=== PATIENT | male | born 1960 | race Caucasian/White ===

== ENCOUNTER → 2017-04-27 | Outpatient (CLI) | payer OTHER ==
[~2017-04-27] MED LIST: CLN200 PO; PRED50TA PO
== END | disposition home or self-care (01) ==
LOC: C.CPL 09:59
PROVIDERS: ATTEND Orthopaedic Surgery
DX: S83.242D Other tear of medial meniscus, current injury, left knee, subsequent encounter (principal); X58.XXXD Exposure to other specified factors, subsequent encounter

== ENCOUNTER 2019-03-24 10:06 | Inpatient (IN) ==
--- NOTE | 2019-03-09 12:59 | PAT Medication Instructions ---
Medication Instructions Date of Service March 09, 2019 Home Medications tamsulosin 0.4 mg capsule 0.4 mg PO QPM lisinopril-hydrochlorothiazide 1 tab PO QPM Take evening before surgery tamsulosin 0.4 mg capsule 0.4 mg PO QPM lisinopril-hydrochlorothiazide 1 tab PO QPM NOTHING TO EAT OR DRINK AFTER MIDNIGHT Other Notes If you have any questions please call us at [phone] or [phone] or [phone] or [phone]
--- NOTE | 2019-03-09 13:10 | Anesthesiology Consultation ---
Date of Service March 09, 2019 Assessment & Plan (1) Encounter for pre-operative examination: PCP Clearance (Dr. Jordan) 03/02/19 = "Pt cleared for surgery with low likelihood of taylor-operative complications assuming we can get his BP down. Start Amlodipine and take in the AM. Return for BP check in a week with nurse. Getting further testing with anesthesia at the hospital. I am happy with his EKG from earlier this year." Pt returned for BP check on 03/11. BP 148/80. Addendum 03/16 = "Pt returned for BP recheck and SBP down to 148. Still not fully controlled but patient cleared for surgery." Chart Review Chart Review: Acceptable Risk for Surgery and Patient seen in Pre Admission Testing Teaching & Discussion Instructed NPO after midnight before surgery, except medications with 15 cc of water. Medication instructions provided according to the PAT guidelines. History Surgery Operation Date: 03/24/19 12:35 Proposed Procedures p Robotic Laparoscopic Assisted Radical Retropubic Prostatectomy, Possible Open, Possible Pelvic Lymph Node Dissection, Possible Suprapubic Tube Placement - Santhosh Alarcon MD Height/Weight Height: 6 ft 4 in Weight: 149.685 kg Allergies Allergy/AdvReac Type Severity Reaction Status Date / Time NSAIDS (Non-Steroidal Allergy Unknown SEE NOTES Verified 03/24/19 10:45 Anti-Inflamma BELOW Medications Home Medications Medication Instructions Recorded Confirmed Last Taken tamsulosin 0.4 mg capsule 0.4 mg PO QPM 01/18/19 03/24/19 03/22/19 20:30 lisinopril-hydrochlorothiazide 1 tab PO QPM 03/04/19 03/24/19 03/23/19 18:00 amlodipine 5 mg PO QAM 03/09/19 03/24/19 03/24/19 08:30 Active Medications Generic Name Dose Route Start Last Admin Trade Name Freq PRN Reason Stop Dose Admin Heparin Sodium (Porcine) 5,000 units 03/24/19 06:00 03/24/19 11:26 Heparin Sodium (Porcine) SC 03/24/19 15:00 Not Given PREOP RADHA Lactated Ringer's 1,000 mls @ 15 mls/hr 03/24/19 06:00 03/24/19 11:21 Lr IV 03/25/19 05:59 15 mls/hr .Q24H RADHA Administration Past Medical History Medical History Flat feet, bilateral (Acute) Hypertension (Acute) Morbid obesity Prostate cancer (Acute) Exercise / Class Metabolic Activity II 4-5 Yardwork/Stairs/Walk up hill (Denies SOB or CP with 1 FOS, does daily, but is somewhat limited by flat feet and knee pain) Past Family History Family History Grandmother (Maternal) , of breast cancer age 86 No problems noted. Grandfather (Maternal) , in WW11 No problems noted. Grandfather (Paternal) , age 62 of heart attack No problems noted. Grandmother (Paternal) , age 86 with diabetes No problems noted. Father Age: 82 Heart disease heart stents and bypass Mother Age: 80 No problems noted. Sister Age: 64 No problems noted. Son Age: 22 No problems noted. Daughter Age: 16 No problems noted. Past Surgical History Surgical History H/O sinus surgery (Acute) S/P left knee arthroscopy Past Anesthesia History No Hx of Anesthesia Complications and No Family Hx of Anesthesia Complications History of PONV No Hx of PONV and No Hx of Motion Sickness Social History Smoking Status: Former smoker Do You Dip or Chew Tobacco: No Smoking End Date: AGE 24 Hx Alcohol Use: Yes Alcohol type: wine Alcohol Intake Frequency Comment: 3 DRINKS ON WEEKENDS Hx Substance Use: No substance use type: does not use Review of Systems Pt denies any recent chest pain, shortness of breath, palpitations, cough, fever or URI. Physical Exam Vital Signs Last Vital Signs Temp 36.6 C 03/24/19 10:57 Pulse 58 L 03/24/19 10:57 Resp 20 03/24/19 10:57 BP 154/104 H 03/24/19 10:57 Pulse Ox 97 03/24/19 10:57 BP: 164/97 - PCP monitoring, amlodipine initiated at clearance appt. P: 79bpm SPO2: 95% RA T: 98.2 F R: 16 Constitutional + obese ENMT Mouth: + dental bridge (front lower) and + dental restorations; no chipped teeth and no loose teeth Thyromental Distance: > or= 3.5 Finger Breadths (3.5) Mallampati Class: II Neck + thick neck; neck extension not limited Respiratory normal respiratory effort Auscultation: lungs clear to auscultation bilaterally Cardiovascular Rate/Rhythm: regular rate and regular rhythm Heart Sounds: no murmur Vessels: no carotid bruit Extremities: no edema Testing Laboratory Results 03/09/19 13:21 03/09/19 13:21 Urine Color Yellow 03/09/19 13:21 Urine Appearance Clear (Clear) 03/09/19 13:21 Urine pH 6.0 (4.5-7.5) 03/09/19 13:21 Ur Specific [place] 1.019 (1.000-1.030) 03/09/19 13:21 Urine Protein Negative (Negative) 03/09/19 13:21 Urine Glucose (UA) Negative (Negative) 03/09/19 13:21 Urine Ketones Negative (Negative) 03/09/19 13:21 Urine Nitrite Negative (Negative) 03/09/19 13:21 Ur Leukocyte Esterase Negative (Negative) 03/09/19 13:21 Blood Type B Positive 03/09/19 13:21 Antibody Screen NEGATIVE 03/09/19 13:21 03/09/19 13:21 Urine Culture - Final Urine,Clean Catch No growth - less than 1,000 colonies/mL. Electrocardiogram Date: 07/13/18 Sinus rhythm at 80bpm with occasional PVCs, otherwise normal ECG. Chest X-Ray Date: 03/09/19 Findings: + NAD
--- NOTE | 2019-03-09 13:17 | PAT Medication Instructions ---
Medication Instructions Date of Service March 09, 2019 Home Medications tamsulosin 0.4 mg capsule 0.4 mg PO QPM lisinopril-hydrochlorothiazide 1 tab PO QPM amlodipine 5 mg PO QAM Take morning of surgery With a small sip of water, OTHERWISE NOTHING TO EAT OR DRINK AFTER MIDNIGHT: amlodipine 5 mg PO QAM Take evening before surgery tamsulosin 0.4 mg capsule 0.4 mg PO QPM lisinopril-hydrochlorothiazide 1 tab PO QPM Other Notes If you have any questions please call us at [phone] or [phone] or [phone] or [phone]
--- NOTE | 2019-03-09 13:46 | XRay Report ---
XR chest Pre-admission PA/Lat CLINICAL HISTORY: 58 years-old Male presenting with preoperative assessment. TECHNIQUE: PA and lateral views of the chest were obtained. COMPARISON: None. FINDINGS: Cardiomediastinal silhouette normal. Lungs and pleural spaces clear. Degenerative changes of the thor acic spine. Upper abdomen normal. IMPRESSION: 1. No acute cardiopulmonary disease. Electronically signed by: Gary Chacko M.D. 03/09/2019 1:44 PM
[2019-03-09 15:31] LABS: Basophils # (auto) 0.07 K/uL (0-0.2); Eosinophils % (auto) 2.8 %; Hematocrit (blood only) 44.2 % (42-52); Hemoglobin 14.9 g/dL (14.0-18.0); Immature Granulocytes # (auto) 0.02 K/uL (0.00-0.02); Immature Granulocytes % (auto) 0.3 %; Lymphocytes % (auto) 26.3 %; Mean Corpuscular Hgb Conc 33.7 g/dL (32-36); Mean Corpuscular Volume 92.1 fL (80-100); Mean Platelet Volume 9.9 fL (7.4-10.4); Monocytes # (auto) 0.69 K/uL (0.11-0.59); Monocytes % (auto) 9.5 %; Neutrophils # (auto) 4.35 K/uL (1.4-6.5); Neutrophils % (auto) 60.1 %; Platelet Count 276 K/uL (130-400); RDW Coefficient of Variation 13.3 % (11.5-14.5); RDW Standard Deviation 44.8 fL (36.4-46.3); White Blood Count 7.23 K/uL (4.8-10.8)
[2019-03-09 15:32] LABS: Appearance Urine Clear (Clear); Bilirubin Urine Negative (Negative); Blood Urine Negative (Negative); Color Urine Yellow; Glucose Urine UA Negative (Negative); Ketones Urine Negative (Negative); Leukocyte Esterase Urine Negative (Negative); Nitrite Urine Negative (Negative); Protein Urine Negative (Negative); Specific Gravity Urine 1.019 (1.000-1.030); Urobilinogen Urine Negative (Negative)
[2019-03-09 15:37] LABS: BUN Creatinine Ratio 14.1 (10-20); Calcium 9.5 mg/dl (8.5-10.1); Creatinine Clr Calc Pharmacy 119.8 ml/min; Est GFR (African American) 87.5; Est GFR (Non-African American) 75.5; Potassium 4.4 mmol/L (3.5-5.1)
[~2019-03-24 10:06] MED LIST changes: +CEFAZOLIN 2000MG 2,000 MG/15 ML SYR IV SCH; +CEFAZOLIN 3,000 MG in DEXTROSE 5% 50 ML IV SCH; -CLN200 PO; +HEPARIN SOD 5,000 UNIT/0.5 ML VIAL SC SCH; +LACTATED RINGER'S 1,000 ML IV SCH; -PRED50TA PO
[2019-03-24] MEDS ORDERED: LIDOCAINE HCL 2% 2 ML VIAL/AMP(20MG/ML) INFIL ONE (10:29)
[2019-03-24] MEDS ORDERED: ROCURONIUM BROMIDE 10 MG/ML 5 ML VIAL ONE ×3 (10:29→13:52)
[2019-03-24] MEDS ORDERED: PROPOFOL IV EMULSION 10 MG/ML 20 ML VIAL IV ONE ×2 (10:29→17:13)
[2019-03-24] MEDS ORDERED: fentaNYL citrate 100 MCG/2 ML VIAL ONE ×3 (10:30→15:43)
[2019-03-24] MEDS ORDERED: MIDAZOLAM HCL 1 MG/ML 2ML VIAL ONE (10:30)
[2019-03-24] MEDS ORDERED: HEPARIN SOD 5,000 UNIT/0.5 ML VIAL ONE (11:12)
[2019-03-24] MEDS ORDERED: ACETAMINOPHEN 1000 MG/100 ML IV IV ONE (11:12)
[2019-03-24] MEDS ORDERED: CEFAZOLIN 3000MG/72.5 ML BAG IV ONE (11:13)
[2019-03-24] MEDS ORDERED: ACETAMINOPHEN 1,000 MG/100 ML VIAL IV ONE (11:15)
--- NOTE | 2019-03-24 11:53 | History & Physical Bridge Note ---
Date of Service March 24, 2019 History & Physical Bridge Note I have examined the patient, reviewed the History & Physical and in the interval since the performance of the History & Physical I have noted the following changes of clinical significance: no changes noted
[2019-03-24] MEDS ORDERED: BUPIVACAINE 0.5 % 5 MG/1 ML MPF 30ML VIAL ONE (12:34)
[2019-03-24] MEDS ORDERED: DEXAMETHASONE SOD INJ 4 MG/ML VIAL ONE (12:38)
[2019-03-24] MEDS ORDERED: LARYING-O-JET KIT (LTA) ONE (12:38)
[2019-03-24] MEDS ORDERED: ONDANSETRON INJ 2 MG/ML 2 ML VIAL ONE (12:38)
[2019-03-24] MEDS ORDERED: ePHEDrine sulfate 50 MG/ML SYR ONE (12:38)
[2019-03-24] MEDS ORDERED: PHENYLEPHRINE 100MCG/ML 5ML SYR ONE (12:38)
[2019-03-24] MEDS ORDERED: SUCCINYLCHOLINE CHLORIDE 20 MG/ML 10 ML VIAL ONE (13:46)
[2019-03-24] MEDS ORDERED: NEOSTIGMINE METHYLSULFATE 5 MG/5 ML SYR ONE (13:52)
[2019-03-24] MEDS ORDERED: GLYCOPYRROLATE 0.2 MG/ML VIAL ONE (13:52)
[2019-03-24] MEDS ORDERED: SURGICEL ABSORB HEMOSTAT 2IN X 14IN TOP ONE (14:21)
[2019-03-24] MEDS ORDERED: METHYLENE BLUE 0.5% 10 ML VIAL ONE (14:45)
[2019-03-24] MEDS ORDERED: HYDROmorphone INJ 1 MG/ML SYRINGE IV PRN ×2 (14:53→19:35)
[2019-03-24] MEDS ORDERED: ONDANSETRON INJ 2 MG/ML 2 ML VIAL IV PRN ×2 (14:53→19:35)
[2019-03-24] MEDS ORDERED: ATROPINE SULFATE 0.1 MG/ML 10ML SYR IV PRN (14:53)
[2019-03-24] MEDS ORDERED: ePHEDrine sulfate 50 MG/ML AMP IV PRN (14:53)
--- NOTE | 2019-03-24 17:33 | Operative Report ---
PG Post Operative Report Pre & Post Diagnosis Operation Date: 03/24/19 12:35 Pre-Op Diagnosis: Prostate Cancer Post-Op Diagnosis: Prostate Cancer I identified the patient and participated in the time-out.: Yes Procedure Operation Date: 03/24/19 12:35 Actual Procedures p Robotic Laparoscopic Assisted Radical Retropubic Prostatectomy, Bilateral Pelvic Lymph Node Dissection, Bladder Neck Reconstruction - Santhosh Alarcon MD Surgeon Santhosh Alarcon MD [employer] Attendant DUNIA Cruz Estimated Blood Loss 100 Findings Consistent with Post-Op Diagnosis Specimens Prostate + SVs, L and R PLND, bladder neck reconstruction Description of Procedure See above I attest to the content of the Intraoperative Record and any orders documented therein. Any exceptions are noted below.
[2019-03-24 18:12] LABS: Basophils # (auto) 0.03 K/uL (0-0.2); Basophils % (auto) 0.2 %; Eosinophils # (auto) 0.02 K/uL (0-0.5); Eosinophils % (auto) 0.2 %; Hematocrit (blood only) 43.9 % (42-52); Hemoglobin 14.8 g/dL (14.0-18.0); Immature Granulocytes # (auto) 0.04 K/uL (0.00-0.02); Immature Granulocytes % (auto) 0.3 %; Lymphocytes # (auto) 0.63 K/uL (1.2-3.4); Lymphocytes % (auto) 5.2 %; Mean Corpuscular Hemoglobin 31.2 pg (25-34); Mean Corpuscular Volume 92.6 fL (80-100); Mean Platelet Volume 9.7 fL (7.4-10.4); Monocytes # (auto) 0.23 K/uL (0.11-0.59); Monocytes % (auto) 1.9 %; Neutrophils # (auto) 11.12 K/uL (1.4-6.5); Neutrophils % (auto) 92.2 %; Platelet Count 233 K/uL (130-400); RDW Coefficient of Variation 13.4 % (11.5-14.5); RDW Standard Deviation 45.9 fL (36.4-46.3); Red Blood Count 4.74 M/uL (4.7-6.1); White Blood Count 12.07 K/uL (4.8-10.8)
[2019-03-24 18:13] LABS: Mean Corpuscular Hgb Conc 33.7 g/dL (32-36)
[2019-03-24 18:25] LABS: BUN Creatinine Ratio 11.9 (10-20); Calcium 8.9 mg/dl (8.5-10.1); Creatinine Clr Calc Pharmacy 84.7 ml/min; Est GFR (African American) 57.6; Est GFR (Non-African American) 49.7; Potassium 4.2 mmol/L (3.5-5.1)
[2019-03-24] MEDS: fentaNYL citrate 100 MCG/2 ML VIAL IV PRN ×2 (18:29→18:34)
--- NOTE | 2019-03-24 18:53 | Anesthesiology Progress Note ---
Date of Service March 24, 2019 Anesthesia Post Procedure Vital Signs Vital Signs: Temp Pulse Pulse Resp BP BP Pulse Ox 03/24/19 18:32 78 16 168/89 H 95 03/24/19 18:20 83 16 162/80 H 93 03/24/19 18:10 36.6 C 86 16 166/91 H 94 03/24/19 18:00 82 19 162/86 H 95 03/24/19 17:50 85 17 151/82 H 96 03/24/19 17:42 36.5 C 86 18 145/82 H 95 03/24/19 10:57 36.6 C 58 L 20 154/104 H 97 Pain Intensity Abdomen: Pain Intensity: 6 Transfer of Care Handoff Completed per policy Notes Mental Status: alert / awake / arousable and participated in evaluation Patient Amnestic to Procedure: Yes Nausea / Vomiting: adequately controlled Pain: adequately controlled Airway Patency, RR, SpO2: stable & adequate BP & HR: stable & adequate Hydration State: stable & adequate Anesthetic Complications: no major complications apparent
[2019-03-24] MEDS ORDERED: OXYCODONE HCL IR 5 MG TAB (IMMEDIATE RELEASE) PO PRN (19:35)
[2019-03-24] MEDS: LACTATED RINGER'S 1,000 ML IV SCH (20:35)
[2019-03-24] MEDS: LISINOPRIL/HCTZ 20/12.5MG 1 TAB TAB PO SCH (20:37)
[2019-03-24] MEDS: ACETAMINOPHEN 1,000 MG/100 ML VIAL IV SCH (20:38)
[2019-03-24] MEDS: CEFAZOLIN 2000MG 2,000 MG/15 ML SYR IV SCH (20:38)
[2019-03-25] MEDS: LACTATED RINGER'S 1,000 ML IV SCH ×3 (00:13→19:13)
[2019-03-25] MEDS: OXYCODONE HCL IR 5 MG TAB (IMMEDIATE RELEASE) PO PRN ×3 (00:57→16:51)
[2019-03-25] MEDS: ACETAMINOPHEN 1,000 MG/100 ML VIAL IV SCH ×3 (04:57→20:36)
[2019-03-25] MEDS: CEFAZOLIN 2000MG 2,000 MG/15 ML SYR IV SCH (04:58)
[2019-03-25] MEDS: HYDROmorphone INJ 0.5 MG/0.5 ML SYR IV PRN ×3 (06:11→19:13)
[2019-03-25 06:45] LABS: Basophils # (auto) 0.02 K/uL (0-0.2); Basophils % (auto) 0.2 %; Hematocrit (blood only) 41.7 % (42-52); Immature Granulocytes # (auto) 0.03 K/uL (0.00-0.02); Immature Granulocytes % (auto) 0.2 %; Lymphocytes # (auto) 1.02 K/uL (1.2-3.4); Lymphocytes % (auto) 7.9 %; Mean Corpuscular Hemoglobin 31.2 pg (25-34); Mean Corpuscular Hgb Conc 33.6 g/dL (32-36); Mean Corpuscular Volume 92.9 fL (80-100); Mean Platelet Volume 9.2 fL (7.4-10.4); Monocytes # (auto) 1.55 K/uL (0.11-0.59); Neutrophils # (auto) 10.27 K/uL (1.4-6.5); Neutrophils % (auto) 79.7 %; Platelet Count 254 K/uL (130-400); RDW Coefficient of Variation 13.2 % (11.5-14.5); RDW Standard Deviation 44.8 fL (36.4-46.3); Red Blood Count 4.49 M/uL (4.7-6.1); White Blood Count 12.89 K/uL (4.8-10.8)
[2019-03-25 07:17] LABS: BUN Creatinine Ratio 14.8 (10-20); Calcium 8.6 mg/dl (8.5-10.1); Creatinine Clr Calc Pharmacy 119.7 ml/min; Est GFR (African American) 87.5; Est GFR (Non-African American) 75.5; Potassium 3.8 mmol/L (3.5-5.1)
--- NOTE | 2019-03-25 07:31 | Urology Progress Note ---
Date of Service March 25, 2019 Assessment & Plan (1) Prostate cancer: A/P 58 yo male POD#1 s/p RALRP, BPLND. Importance of increased activity reviewed. Will start oxybutynin BID for spastic bladder related pain (shooting pain to tip of penis with catheter). Leg bag training today, tolerance should improve with time and activity. Advance diet. Hopefully patient's activity and bladder irritation will improve and we can DC KAROLYN and DC home later today. F/u AM Cr, continue IV hydration for now. Patient vocalizes understanding of the treatment plan. Subjective 58 yo male POD#1 s/p RALRP, BPLND, resting in room comfortable. He notes little activity yesterday due to catheter related pain with movement, minimal OOB, no OOBTC. His bump in Cr to 1.5 is noted, Hb stable in postop context. Minimal KAROLYN OP, mario clears, no f/c/n/v, + appetite this AM. Denies other specific c/o. Review of Systems Constitutional: no fever and no chills Eyes: no diplopia Ear, Nose, Mouth, Throat: no ear trauma Respiratory: no hemoptysis Cardiovascular: no chest pain Gastrointestinal: + abdominal pain; no nausea and no vomiting Genitourinary: + as per Subjective / HPI Integumentary: no acne and no boil Neurologic: no paralysis Psychiatric: no hopelessness Hematologic / Lymphatic: no easy bleeding Allergy / Immunological: no tongue swelling Physical Exam Constitutional: + obese; no acute distress Eyes: eyes not dysmorphic ENMT: Ears: no external ear abnormality Neck: trachea midline; no anterior neck swelling Respiratory: no respiratory distress and does not use accessory muscles Cardiovascular: Vessels: radial pulses present Gastrointestinal (Abdomen): Inspection/Auscultation: abdomen not distended Percussion/Palpation: abdomen soft; abdomen nontender inc c/d/i with dermabond Musculoskeletal: Head/Neck/Chest: normocephalic and neck supple Skin: normal turgor Neurologic: awake; not obtunded Psychiatric: Orientation: oriented x 3 Lymphatic: no lymphadenopathy Results & Data Vital Signs (Past 12 Hours) Vital Signs Temp Pulse Pulse Resp BP BP Pulse Ox 03/25/19 04:00 36.7 C 75 16 141/73 H 93 03/24/19 23:34 36.8 C 80 16 134/73 94 03/24/19 22:11 36.2 C L 86 15 161/82 H 93 03/24/19 20:56 36.4 C L 79 17 158/80 H 96 03/24/19 19:59 86 16 161/67 H 97 03/24/19 19:29 83 17 153/80 H 96 Laboratory Results Laboratory Results - last 48 hr 03/24/19 03/24/19 03/25/19 17:50 17:50 06:20 WBC 12.07 H 12.89 H RBC 4.74 4.49 L Hgb 14.8 14.0 Hct 43.9 41.7 L MCV 92.6 92.9 MCH 31.2 31.2 MCHC 33.7 33.6 RDW Std Deviation 45.9 44.8 RDW Coeff of Jimmy 13.4 13.2 Plt Count 233 254 MPV 9.7 9.2 Immature Gran % (Auto) 0.3 0.2 Neut % (Auto) 92.2 79.7 Lymph % (Auto) 5.2 7.9 [place] % (Auto) 1.9 12.0 Eos % (Auto) 0.2 0.0 Baso % (Auto) 0.2 0.2 Immature Gran # (Auto) 0.04 H 0.03 H Neut # (Auto) 11.12 H 10.27 H Lymph # (Auto) 0.63 L 1.02 L [place] # (Auto) 0.23 1.55 H Eos # (Auto) 0.02 0.00 Baso # (Auto) 0.03 0.02 Sodium 138 Potassium 4.2 Chloride 108 H Carbon Dioxide 26 Anion Gap 4.0 BUN 18 Creatinine 1.54 H Est Cr Clr Drug Dosing 84.7 Est GFR ( Amer) 57.6 Est GFR (Non-Af Amer) 49.7 BUN/Creatinine Ratio 11.9 Glucose 145 H Calcium 8.9 03/25/19 06:20 WBC RBC Hgb Hct MCV MCH MCHC RDW Std Deviation RDW Coeff of Jimmy Plt Count MPV Immature Gran % (Auto) Neut % (Auto) Lymph % (Auto) [place] % (Auto) Eos % (Auto) Baso % (Auto) Immature Gran # (Auto) Neut # (Auto) Lymph # (Auto) [place] # (Auto) Eos # (Auto) Baso # (Auto) Sodium 134 L Potassium 3.8 Chloride 105 Carbon Dioxide 22 Anion Gap 8.0 BUN 16 Creatinine 1.09 Est Cr Clr Drug Dosing 119.7 Est GFR ( Amer) 87.5 Est GFR (Non-Af Amer) 75.5 BUN/Creatinine Ratio 14.8 Glucose 109 H Calcium 8.6 PG Care Time/CCT Total # of Minutes Spent Total Time Spent with Patient: Total time spent is greater than 50% in coordination of care (as documented) at patient's floor/unit and/or counseling patient:
--- NOTE | 2019-03-25 08:04 | Anesthesiology Progress Note ---
Date of Service March 25, 2019 Anesthesia Post Procedure Vital Signs Vital Signs: Temp Pulse Pulse Pulse Resp BP BP 03/25/19 07:10 36.7 C 69 18 105/64 03/25/19 04:00 36.7 C 75 16 141/73 H 03/24/19 23:34 36.8 C 80 16 134/73 03/24/19 22:11 36.2 C L 86 15 161/82 H 03/24/19 20:56 36.4 C L 79 17 158/80 H 03/24/19 19:59 86 16 161/67 H 03/24/19 19:29 83 17 153/80 H 03/24/19 19:00 36.7 C 92 H 18 172/82 H 03/24/19 18:45 36.5 C 83 16 165/91 H 03/24/19 18:32 78 16 168/89 H 03/24/19 18:20 83 16 162/80 H 03/24/19 18:10 36.6 C 86 16 166/91 H 03/24/19 18:00 82 19 162/86 H 03/24/19 17:50 85 17 151/82 H 03/24/19 17:42 36.5 C 86 18 145/82 H 03/24/19 10:57 36.6 C 58 L 20 154/104 H Pulse Ox 03/25/19 07:10 94 03/25/19 04:00 93 03/24/19 23:34 94 03/24/19 22:11 93 03/24/19 20:56 96 03/24/19 19:59 97 03/24/19 19:29 96 03/24/19 19:00 95 03/24/19 18:45 96 03/24/19 18:32 95 03/24/19 18:20 93 03/24/19 18:10 94 03/24/19 18:00 95 03/24/19 17:50 96 03/24/19 17:42 95 03/24/19 10:57 97 Pain Intensity Abdomen: Pain Intensity: 6 Penis: Pain Intensity: 4 Notes Mental Status: alert / awake / arousable and participated in evaluation Patient Amnestic to Procedure: Yes Nausea / Vomiting: adequately controlled Pain: adequately controlled Airway Patency, RR, SpO2: stable & adequate BP & HR: stable & adequate Hydration State: stable & adequate Anesthetic Complications: no major complications apparent
[2019-03-25] MEDS: OXYBUTYNIN CHLORIDE 5 MG TAB PO SCH ×2 (09:07→20:37)
[2019-03-25] MEDS: AMLODIPINE BESYLATE 5 MG TAB PO SCH (09:07)
--- NOTE | 2019-03-25 10:21 | Urology Progress Note ---
Date of Service March 25, 2019 Assessment & Plan (1) Prostate cancer: A/P 58 yo male POD#1 s/p RALRP, BPLND with Dr. Alarcon. Still acknowledges pelvic and catheter pain; RN at bedside to administer oxybutynin as prescribed. Pt encouraged to ambulate. Does not feel he will be ready for discharge later today. Plan for leg catheter training Regular diet tray given to pt during evaluation but has not yet consumed. AM Creatinine back to baseline. Will continue to monitor, likely discharge tomorrow AM unless pain control improves. Subjective 58 yo male POD#1 s/p RALRP, BPLND with Dr. Alarcon Still acknowledging discomfort, very concerned with pain control. States he was unable to stand due to discomfort. No nausea, very hungry. incisions c/d/i kent draining green/yellow, no clots. Results & Data Vital Signs (Past 12 Hours) Vital Signs Temp Pulse Resp BP Pulse Ox 03/25/19 07:10 36.7 C 69 18 105/64 94 03/25/19 04:00 36.7 C 75 16 141/73 H 93 03/24/19 23:34 36.8 C 80 16 134/73 94 PG Care Time/CCT Total # of Minutes Spent Total Time Spent with Patient: Total time spent is greater than 50% in coordination of care (as documented) at patient's floor/unit and/or counseling patient:
--- NOTE | 2019-03-25 16:54 | Operative Report ---
DATE OF OPERATION: 03/24/2019 PREOPERATIVE DIAGNOSES: Clinical T2, [place] 4+3 adenocarcinoma of the prostate with possible seminal vesicle invasion on MRI. POSTOPERATIVE DIAGNOSES: Clinical T2, [place] 4+3 adenocarcinoma of the prostate with possible seminal vesicle invasion on MRI. PROCEDURE: Robot-assisted laparoscopic radical retropubic prostatectomy with bilateral pelvic lymph node dissection and bladder neck reconstruction. SURGEON: Dr. Santhosh Alarcon. DUCT LAYER: DUNIA Mcconnell. Assistants present throughout the case for retraction, suction, instrument passage, tissue retraction, bagging and removal of specimens, patient positioning and general patient safety. ANESTHESIA: General anesthesia with endotracheal intubation plus local at port sites. ESTIMATED BLOOD LOSS: 100 mL. IV FLUIDS: 1200 mL of crystalloid. URINE OUTPUT: 200 mL in original Schwartz prior to transection of bladder neck. SPECIMENS SENT TO PATHOLOGY: Prostate plus seminal vesicles, periprostatic fat, left and right pelvic lymph nodes. DRAINS LEFT IN PLACE: Include an 18-Maori silicone Schwartz catheter with 10 mL of sterile water in the balloon. FINDINGS: Induration of a right seminal vesicle transected with apparent clear tissue planes after completion of case. Watertight anastomosis after completion of the tennis-racket style bladder neck reconstruction. COMPLICATIONS: None. BRIEF HISTORY: The patient is a pleasant 58-year-old obese male with a history of high grade prostate cancer, felt to have a T3 disease based on prostate MRI. He has been previously seen by Dr. Camara and referred to myself for consideration of surgical therapy in the context of the possible need for multimodality therapy going into the future. After discussion of risks and benefits of various forms of intervention, we have decided to proceed with a robotic prostatectomy to manage his disease. His weight is noted to be one of the risk factors associated with this intervention. We will avoid placement of a suprapubic tube in the perioperative context due to the patient's weight and abdominal habitus. Please see H and P for further details. Intravenous Ancef is provided at 3 g dose for antibiotic coverage and SCDs as well as subcutaneous heparin are used for perioperative DVT prophylaxis. Intravenous Tylenol is provided perioperatively for additional analgesia. Consent was reviewed with the patient preoperatively on the day of surgery. DESCRIPTION OF PROCEDURE: The patient was properly identified and brought into the operative suite after identification of appropriate consent on the chart. General anesthesia with endotracheal intubation was initiated and the patient was prepped and draped in standard fashion for this procedure. time analysis clerk-out procedure was followed. All port sites were anesthetized with local prior to incision. A transverse supraumbilical incision was made and a visual obturator was used to introduce a long laparoscopic trocar into the abdomen under direct visualization using a 0-degree laparoscope. Abdomen was entered and insufflated. Intra-abdominal contents were noted to be without scarring or worrisome anatomic variance and free of injury on port placement. Ports were placed for a 4th arm robotic template including 2 left-sided 8 mm robotic ports, one 8 mm right-sided robotic ports and a 5 and 12 mm diver assistant port on the right hand side. The patient was placed in Trendelenburg and robot was brought in and docked. A 0 degree lens was used to drop the bladder down to the level of the pelvis after freeing the sigmoid colonic attachments sharply using cold scissors. The true pelvis was entered and the prostate was skeletonized and defatted. Periprostatic fat was sent for pathologic analysis. Endopelvic fascia was entered on both sides and prostate was dissected free down to the level of the apex of the gland. A 0 Vicryl suture was used on the CT1 needle to control the dorsal vascular complex which was noted to be relatively thin and well defined in a [id number] fashion. After this was complete, the bladder neck was placed on traction. Some left handed deviation of the patient's Schwartz balloon was appreciated, likely due to tumor bulk on the right hand side. Seeing the relative induration of the tissues and the suspicion of extraprostatic extension, a relatively wide bladder neck opening was made, although this was still noted to be well clear of the ureteral orifices. Methylene blue was provided intraoperatively and noted to be effluxing deep from within the bladder from the ureteral orifices, which were uninjured throughout the case. After the bladder neck was transected, the Schwartz catheter was placed in traction on the 4th arm to allow for anterior to the posterior plane. Posterior bladder neck was transected and dropped. Dissection was continued down until the level of the seminal vesicles were encountered. While the left seminal vesicle and vas deferens were able to be dissected free with ease, the right side was noted to be somewhat indurated. Decision was then made to proceed with dissection of the pedicles to allow for further treatment of the prostate and more definition of the anatomy in this area of suspected seminal vesicle invasion. Seeing that a relatively wide dissection was planned, a vessel sealer was used to control the pedicles. A rim of tissue was left around the prostate laterally to allow for the possibility of a negative margin, although the patient was noted to have neurovascular bundle structures well removed from the prostate and within the musculature of the pelvic side wall allowing for some hope of partial nerve preservation even with a relatively wide dissection. After the pedicles and lateral dissection had been initiated, the vas deferens and seminal vesicles were much more easily able to be defined on the left hand side. Dissection plane into what appeared to be clean uninvolved fat around the seminal vesicle and prostate was carried out without difficulties. Remainder of the dissection was carried toward the apex of the prostate and then attention was turned to the dorsal vascular bundle. A 0-degree lens needed due to the anatomy of the abdomen to visualize the apex of the prostate. Dorsal vein was transected using hot scissors and the urethra was skeletonized with an excellent lengthy urethral stump. This was then divided as were the remaining rectourethralis fibers. Prostate was then freed, brought up into the abdomen and placed within an EndoCatch bag for retrieval at the end of the case. Attention was turned to the pelvis where the rectum was insufflated under saline irrigation and noted to be free of any injury. After this was complete, attention was then turned to the pelvic lymph node dissections on both sides. Using the external iliac vessels, pelvic sidewall and the obturator nerve on both sides, pelvic lymph node dissection was carried out. Due to the copious amounts of fat associated with the lymphatic dissection, decision was made to insert an additional EndoCatch bag for removal of the specimen. The left-sided specimen was controlled using a clip. On the right side due to some small amount of oozing, a Surgicel was placed within the obturator fossa. Excellent hemostasis was appreciated. Weck clips were used to generously enlarge the lymphatic vessels as was monopolar cautery to minimize the odds of lymphocele. The obturator nerves were verified to be free of any injuries after completion of the dissection. After this was complete, attention was turned to the bladder neck. A double armed V-Loc suture was used to create a circumferential running anastomosis between the prostate and the bladder neck. Ureteral orifices were again noted to be well removed from the plane of dissection. Due to the relatively large bladder neck opening, a defect was still present after completion of the closure in the anterior plane. This was closed using the V-Loc sutures in a tennis-racket fashion. Schwartz catheter was visualized entering the bladder prior to completion of the closure. A 10 mL of sterile water were placed within the balloon and catheter was irrigated with greater than 120 mL of sterile irrigant and tested. This demonstrated no evidence of any leak circumferentially. Fourth arm was removed and #10 KAROLYN drain was brought in via the fourth arm port. This was placed within the confines of the pelvis while avoiding placing it directly over the anastomosis. The robotic instruments were then removed and robot was dedocked. Camera was brought in via the diver assistant port and string to the 2 EndoCatch bags were brought up through the supraumbilical incision. Abdomen was desufflated and the supraumbilical incision was enlarged over the trocar to the camera port. Ports were removed prior to completion of desufflation and EndoCatch bags were removed from the abdomen. Excess carbon dioxide gas was removed from the abdominal cavity and the supraumbilical incision was closed using an 0 Vicryl suture on a UR-5 needle. Subcutaneous tissues were closed using 3-0 Vicryl in this location and skin was closed using a 4-0 Monocryl with Dermabond. A 2-0 silk was used to secure the KAROLYN drain in place. Anesthesia was reversed. The patient was transferred to the Recovery Room in stable condition. FOLLOWUP CARE: The patient will be admitted to the floor for standard postoperative management. I attest to the content of the Intraoperative Record and any orders documented therein. Any exception s are noted below.
[2019-03-25] MEDS: LISINOPRIL/HCTZ 20/12.5MG 1 TAB TAB PO SCH (20:37)
[2019-03-26] MEDS: OXYCODONE HCL IR 5 MG TAB (IMMEDIATE RELEASE) PO PRN (00:34)
[2019-03-26] MEDS: ACETAMINOPHEN 1,000 MG/100 ML VIAL IV SCH ×2 (04:08→11:56)
[2019-03-26] MEDS: LACTATED RINGER'S 1,000 ML IV SCH ×2 (04:13→13:51)
[2019-03-26 06:15] LABS: Basophils # (auto) 0.04 K/uL (0-0.2); Basophils % (auto) 0.4 %; Eosinophils # (auto) 0.12 K/uL (0-0.5); Eosinophils % (auto) 1.3 %; Hematocrit (blood only) 38.7 % (42-52); Hemoglobin 12.8 g/dL (14.0-18.0); Immature Granulocytes # (auto) 0.02 K/uL (0.00-0.02); Immature Granulocytes % (auto) 0.2 %; Lymphocytes # (auto) 1.58 K/uL (1.2-3.4); Lymphocytes % (auto) 16.9 %; Mean Corpuscular Hemoglobin 30.8 pg (25-34); Mean Corpuscular Hgb Conc 33.1 g/dL (32-36); Mean Platelet Volume 9.5 fL (7.4-10.4); Monocytes # (auto) 1.41 K/uL (0.11-0.59); Monocytes % (auto) 15.1 %; Neutrophils # (auto) 6.16 K/uL (1.4-6.5); Neutrophils % (auto) 66.1 %; Platelet Count 208 K/uL (130-400); RDW Coefficient of Variation 13.6 % (11.5-14.5); RDW Standard Deviation 46.4 fL (36.4-46.3); Red Blood Count 4.16 M/uL (4.7-6.1); White Blood Count 9.33 K/uL (4.8-10.8)
[2019-03-26 06:41] LABS: BUN Creatinine Ratio 12.5 (10-20); Calcium 8.5 mg/dl (8.5-10.1); Creatinine Clr Calc Pharmacy 127.9 ml/min; Est GFR (African American) 94.8; Est GFR (Non-African American) 81.8; Potassium 3.9 mmol/L (3.5-5.1)
[2019-03-26] MEDS: HYDROmorphone INJ 0.5 MG/0.5 ML SYR IV PRN ×2 (07:41→12:59)
[2019-03-26] MEDS: AMLODIPINE BESYLATE 5 MG TAB PO SCH (08:45)
[2019-03-26] MEDS: OXYBUTYNIN CHLORIDE 5 MG TAB PO SCH (08:45)
--- NOTE | 2019-03-26 11:47 | Urology Progress Note ---
Date of Service March 26, 2019 Assessment & Plan (1) Prostate cancer: A/P 58 yo male POD#2 s/p RALRP, BPLND with Dr. Alarcon. Patient doing well. Has discussed at length options and management. Patient is comfortable proceeding. Will wait lunch and further ambulation but if feelings up to it will likely go home later today. We will continue to follow closely. Patient has improved. Will discuss options for management of bowel issues. We will continue with close monitoring. Call if any issues or concerns. Was sent home with medications for pain control and instructions for home care.. Subjective 58 yo male POD#2 s/p RALRP, BPLND with Dr. Alarcon Patient doing well. Having some mild discomfort. Having some incisional pain. Otherwise no major issues. Has been ambulating around the room. Has been tolerating diet. Is tolerating catheter as well. No return of bowel function. No major episodes of flatus. Review of Systems Gastrointestinal: + abdominal pain; no nausea and no vomiting Genitourinary: + as per Subjective / HPI Physical Exam Physical Exam: General: Alert in no acute distress. HEENT: Normocephalic Atraumatic. Inspection normal. Cranial Nerves 2-12 Grossly intact. Normal inspection of face. Normal inspection of neck. Psychologic: Normal affect. Respiratory: Nonlabored. No use of accessory muscles. No tachypnea or dyspnea. Cardiovascular: No tachycardia Skin: [place] and Dry. No rashes or visible lesions. Extremities/Lymphatics: No edema Abdomen: Wounds clean dry and intact. No rebound or guarding. Obese : Schwartz in place draining clear yellow urine Results & Data Vital Signs (Past 12 Hours) Vital Signs Temp Pulse Resp BP Pulse Ox 03/26/19 07:18 36.7 C 71 16 112/66 93 PG Care Time/CCT Total # of Minutes Spent Total Time Spent with Patient: Total time spent is greater than 50% in coordination of care (as documented) at patient's floor/unit and/or counseling patient:
== END 2019-03-26 15:26 | disposition home or self-care (01) | DRG 707 ==
LOC: ASU 10:06 → 3E 17:41

== ENCOUNTER 2019-04-03 16:32 | Inpatient (IN) ==
[2019-04-03] MEDS ORDERED: ALBUT/IPRATROP 3MG/0.5MG NEB 3 ML VIAL NEB ONE (16:52)
[2019-04-03 17:19] LABS: Basophils # (auto) 0.04 K/uL (0-0.2); Basophils % (auto) 0.3 %; Eosinophils # (auto) 0.12 K/uL (0-0.5); Immature Granulocytes # (auto) 0.05 K/uL (0.00-0.02); Immature Granulocytes % (auto) 0.4 %; Lymphocytes # (auto) 1.51 K/uL (1.2-3.4); Mean Corpuscular Hemoglobin 31.6 pg (25-34); Mean Corpuscular Volume 90.3 fL (80-100); Mean Platelet Volume 9.7 fL (7.4-10.4); Monocytes # (auto) 1.59 K/uL (0.11-0.59); Monocytes % (auto) 12.7 %; Neutrophils # (auto) 9.24 K/uL (1.4-6.5); Neutrophils % (auto) 73.6 %; Platelet Count 198 K/uL (130-400); RDW Coefficient of Variation 13.1 % (11.5-14.5); RDW Standard Deviation 43.5 fL (36.4-46.3); Red Blood Count 4.43 M/uL (4.7-6.1); White Blood Count 12.55 K/uL (4.8-10.8)
[2019-04-03 17:21] LABS: Appearance Urine Clear (Clear); Bilirubin Urine Negative (Negative); Blood Urine 3+ (Negative); Color Urine Yellow; Glucose Urine UA Negative (Negative); Ketones Urine Negative (Negative); Leukocyte Esterase Urine Trace (Negative); Nitrite Urine Negative (Negative); Protein Urine Trace (Negative); Urobilinogen Urine Negative (Negative); pH Urine 5.5 (4.5-7.5)
[2019-04-03 17:28] LABS: iSTAT Creatinine 1.4 mg/dl (0.6-1.3); iSTAT Hemoglobin 14.3 g/dl (14.0-18.0); iSTAT Ionized Calcium 1.05 mmol/l (1.12-1.32); iSTAT Potassium 3.8 mEq/L (3.3-5.0)
[2019-04-03 17:32] LABS: Bacteria Urine 1+ (Negative); Epithelial Cell Urine 20-30 /lpf (0-5); RBC Urine >30 /hpf (0-4)
--- NOTE | 2019-04-03 17:35 | XRay Report ---
XR chest 1V portable CLINICAL HISTORY: 58 years-old Male presenting with Chest Pain. TECHNIQUE: Portable upright AP view of the chest was obtained. COMPARISON: 03/09/2019. FINDINGS: Cardiac silhouette borderline enlarged. No focal opacity. No large effusion or pneumothorax. Osseous structures normal. Upper abdomen normal. IMPRESSION: 1. Borderline cardiomegaly. No other convincing evidence of acute cardiopulmonary disease. Electronically signed by: Gary Chacko M.D. 04/03/2019 5:33 PM
[2019-04-03 17:37] LABS: Albumin Level 2.7 gm/dl (3.4-5.0); BUN Creatinine Ratio 21.4 (10-20); Calcium 8.1 mg/dl (8.5-10.1); Creatinine Clr Calc Pharmacy 98.2 ml/min; Est GFR (African American) 68.2; Est GFR (Non-African American) 58.8; Potassium 3.8 mmol/L (3.5-5.1)
[2019-04-03 17:47] LABS: Albumin Globulin Ratio 0.7 (0.9-2); Bilirubin,Total 0.8 mg/dl (0.2-1); Creatine Kinase MB 2.8 ng/ml (0.5-3.6); Globulin 4.1 gm/dl (2.5-4.0); Total Protein 6.8 gm/dl (6.4-8.2); Troponin I 0.453 ng/ml (0-0.045)
--- NOTE | 2019-04-03 17:56 | Emergency Department Note ---
Entered by Denia Carpenter acting as a scribe for History of Present Illness General Chief complaint: Shortness of Breath/Dyspnea Stated complaint: SOB Time Seen by Provider: 04/03/19 16:43 Source: patient Mode of arrival: ambulatory Limitations: no limitations History of Present Illness Location: chest Relieved By: + none Exacerbated By: + other (exertion) Associated symptoms: + nausea/vomiting (+nausea, -vomiting) and + weakness Treatments prior to arrival: other (Oxycontin, Tramadol, Tylenol) The patient is a 58 year old male who presents to the ED with complaints of shortness of breath. He did have surgery 1 week ago for a history of prostate cancer here at [facility]. He notes his groin has been very painful since the surgery. He took Oxycontin with Tylenol earlier but states it provided no relief for his pain. He took 3 Tramadol and was "really out of it", and felt "like I had just run a marathon". His breathing is worsened by any exertion. He last had Tylenol at 1300 today. He does not normally wear Oxygen at home. He complains of nausea but has not vomited. He denies any abdominal pain. He does admit to increased weakness. His catheter is supposed to be removed this coming Thursday, in 2 days, and the patient is on anti-biotics until it is removed. Home Medications Home Medications Medication Instructions Recorded Confirmed Type lisinopril-hydrochlorothiazide 1 tab PO QPM 03/04/19 04/03/19 History amlodipine 5 mg PO QAM 03/09/19 04/03/19 History docusate sodium [Colace] 100 mg PO BID #60 cap 03/25/19 04/03/19 Rx oxybutynin chloride 5 mg PO BID PRN #60 tab 03/25/19 04/03/19 Rx tramadol 50 mg tablet 50 mg PO TID PRN #10 tab 04/01/19 04/03/19 Rx tamsulosin 0.4 mg PO DAILY 04/03/19 04/03/19 History Allergies Allergy/AdvReac Type Severity Reaction Status Date / Time NSAIDS (Non-Steroidal Allergy Unknown SEE NOTES Verified 04/03/19 17:00 Anti-Inflamma BELOW Past Med/Surg History Medical History (Updated 04/06/19 @ 13:13 by Kwesi Martins MD) DVT (deep venous thrombosis) (Acute) Flat feet, bilateral (Acute) Hypertension (Acute) Morbid obesity Prostate cancer (Acute) Surgical History H/O sinus surgery (Acute) S/P left knee arthroscopy Family History Grandmother (Maternal) , of breast cancer age 86 No problems noted. Grandfather (Maternal) , in WW11 No problems noted. Grandfather (Paternal) , age 62 of heart attack No problems noted. Grandmother (Paternal) , age 86 with diabetes No problems noted. Father Age: 82 Heart disease heart stents and bypass Mother Age: 80 No problems noted. Sister Age: 64 No problems noted. Son Age: 22 No problems noted. Daughter Age: 16 No problems noted. 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 Other Information That Helps Us Care for You: No Feels Safe at Home: Yes Safety Concerns: Feels Safe At This Time Smoking Status: Never smoker Hx Alcohol Use: Yes Alcohol type: wine Alcohol Intake Frequency: Daily Hx Substance Use: No Childhood Exposure to Second-Hand Smoke: No caffeine: Yes (2 or 3 cups a day) during the past year weight has: remained stable Dental Care, Regularly: Yes Physical Activity Frequency: 1-2 Times per Week Seatbelt Use: always Sunscreen Use: Yes Do you think of yourself as: straight/heterosexual Sexual Activity: has been sexually active within the last 12 months Review of Systems See HPI for pertinent positives & negatives. and A total of 10 systems reviewed and were otherwise negative Physical Exam Vital Signs Vital Signs - 24 hr 04/03/19 21:01 Pulse Rate [Apical] 100 H Respiratory Rate 23 Blood Pressure [Right Arm] 123/95 Blood Pressure Mean [Right Arm] 104 Pulse Oximetry 92 Oxygen Delivery Method Room Air GENERAL: Awake, alert, well-appearing, in no acute distress HENT: Normocephalic, atraumatic. Oropharynx unremarkable. EYES: Normal conjunctiva. Sclera non-icteric. NECK: Supple. No nuchal rigidity. FROM. No JVD. RESPIRATORY: Clear to auscultation. CARDIAC: Regular rate, normal rhythm. Extremities warm and well perfused. Pulses equal. ABDOMEN: Soft, non-distended. No tenderness to palpation. No rebound or guarding. No masses. RECTAL: Deferred. MUSCULOSKELETAL: Chest examination reveals no tenderness. The back is symmetrical on inspection without obvious abnormality. There is no CVA tenderness to palpation. No joint edema. LOWER EXTREMITIES: Calves are equal size bilaterally and non-tender. No edema. No discoloration. NEURO: Normal sensorium. No sensory or motor deficits noted. SKIN: No rash or jaundice noted. Course Course 1646: The patient was evaluated in room C6 and a complete history and physical were performed. 1842: I reevaluated the patient. He is resting comfortably. I discussed my r ecommendation he remain in the hospital for further evaluation and management and he is agreeable with the plan. 1849: I discussed the patients case with Janette Chaney PA-C, [facility] Hospitalist. The patient will be further evaluated. The attending physician is Dr. Weiner. 1934: I discussed the patients case with Dr. Olivares, ICU. The patient will be further evaluated. Administered Medications Amlodipine Besylate (Norvasc) 5 mg PO QAM [facility] Stop: 05/04/19 08:59 Last Admin: 04/06/19 08:34 Dose: 5 mg Documented by: [id number] Admin: 04/05/19 08:30 Dose: 5 mg Documented by: [id number] Admin: 04/04/19 08:30 Dose: 5 mg Documented by: [id number] Docusate Sodium (Colace) 100 mg PO BID [facility] Stop: 05/04/19 08:59 Last Admin: 04/06/19 08:35 Dose: 100 mg Documented by: [id number] Admin: 04/05/19 21:12 Dose: 100 mg Documented by: [id number] Admin: 04/05/19 08:30 Dose: 100 mg Documented by: [id number] Admin: 04/04/19 20:57 Dose: 100 mg Documented by: [id number] Admin: 04/04/19 08:29 Dose: 100 mg Documented by: [id number] Lisinopril/HCTZ (Prinzide 20/12.5mg) 1 tab PO QPM RADHA Stop: 05/04/19 20:59 Last Admin: 04/05/19 21:12 Dose: 1 tab Documented by: [id number] Admin: 04/04/19 20:57 Dose: 1 tab Documented by: [id number] Heparin Sodium/Dextrose (Heparin Sodium/Dextrose) 25,000 units in 500 mls @ 55 mls/hr IV .Q9H6M [facility]; Protocol Stop: 05/03/19 18:59 Last Admin: 04/06/19 07:02 Dose: 2,750 units/hr, 55 mls/hr Documented by: [id number] Cosigned by: [id number] Titration: 04/06/19 06:18 Dose: 2,750 units/hr, 55 mls/hr Documented by: [id number] Cosigned by: [id number] Admin: 04/05/19 21:12 Dose: 2,750 units/hr, 55 mls/hr Documented by: [id number] Cosigned by: [id number] Titration: 04/05/19 21:12 Dose: 2,750 units/hr, 55 mls/hr Documented by: [id number] Cosigned by: [id number] Titration: 04/05/19 18:59 Dose: 2,750 units/hr, 55 mls/hr Documented by: [id number] Cosigned by: [id number] Admin: 04/05/19 12:08 Dose: 2,750 units/hr, 55 mls/hr Documented by: [id number] Cosigned by: [id number] Titration: 04/05/19 12:01 Dose: 2,750 units/hr, 55 mls/hr Documented by: [id number] Cosigned by: [id number] Titration: 04/05/19 07:00 Dose: 2,750 units/hr, 55 mls/hr Documented by: [id number] Cosigned by: [id number] Titration: 04/05/19 04:45 Dose: 2,750 units/hr, 55 mls/hr Documented by: [id number] Cosigned by: [id number] Admin: 04/05/19 02:44 Dose: 2,500 units/hr, 50 mls/hr Documented by: [id number] Cosigned by: [id number] Titration: 04/05/19 02:44 Dose: 0 units/hr, 0 mls/hr Documented by: [id number] Cosigned by: [id number] Titration: 04/04/19 23:05 Dose: 2,500 units/hr, 50 mls/hr Documented by: [id number] Cosigned by: [id number] Titration: 04/04/19 19:15 Dose: 2,500 units/hr, 50 mls/hr Documented by: [id number] Cosigned by: [id number] Admin: 04/04/19 16:26 Dose: 2,500 units/hr, 50 mls/hr Documented by: [id number] Cosigned by: [id number] Titration: 04/04/19 16:23 Dose: 2,500 units/hr, 50 mls/hr Documented by: [id number] Cosigned by: [id number] Titration: 04/04/19 11:14 Dose: 2,500 units/hr, 50 mls/hr Documented by: [id number] Cosigned by: [id number] Titration: 04/04/19 10:28 Dose: 2,500 units/hr, 50 mls/hr Documented by: [id number] Cosigned by: [id number] Titration: 04/04/19 06:58 Dose: 2,500 units/hr, 50 mls/hr Documented by: [id number] Cosigned by: [id number] Admin: 04/04/19 06:23 Dose: 2,500 units/hr, 50 mls/hr Documented by: [id number] Cosigned by: [id number] Titration: 04/04/19 06:23 Dose: 2,500 units/hr, 50 mls/hr Documented by: [id number] Cosigned by: [id number] Titration: 04/04/19 02:24 Dose: 2,500 units/hr, 50 mls/hr Documented by: [id number] Cosigned by: [id number] Admin: 04/03/19 19:04 Dose: 2,050 units/hr, 41 mls/hr Documented by: [id number] Cosigned by: [id number] Oxybutynin Chloride (Ditropan) 5 mg PO BID PRN PRN Reason: bladder spasms Stop: 05/03/19 22:35 Last Admin: 04/05/19 04:42 Dose: 5 mg Documented by: [id number] Admin: 04/04/19 18:57 Dose: 5 mg Documented by: [id number] Admin: 04/04/19 02:42 Dose: 5 mg Documented by: [id number] Oxycodone HCl (Roxicodone Immediate Rel) 10 mg PO Q6H PRN PRN Reason: Severe Pain (7,8,9,10) Stop: 04/18/19 10:17 Last Admin: 04/05/19 01:09 Dose: 10 mg Documented by: [id number] Oxycodone HCl (Roxicodone Immediate Rel) 5 mg PO Q6H PRN PRN Reason: Moderate Pain (4,5,6) Stop: 04/18/19 10:17 Last Admin: 04/04/19 18:11 Dose: 5 mg Documented by: [id number] Admin: 04/04/19 10:33 Dose: 5 mg Documented by: [id number] Tamsulosin HCl (Flomax) 0.4 mg PO DAILY RADHA Stop: 05/04/19 08:59 Last Admin: 04/06/19 08:35 Dose: 0.4 mg Documented by: [id number] Admin: 04/05/19 08:30 Dose: 0.4 mg Documented by: [id number] Admin: 04/04/19 08:30 Dose: 0.4 mg Documented by: [id number] Discontinued Medications Albuterol (Duoneb) 12 ml NEB ONE ONE Stop: 04/03/19 16:53 Last Admin: 04/03/19 17:15 Dose: 12 ml Documented by: [id number] Heparin Sodium (Porcine) (Heparin Iv Bolus) 5,000 units IV ONE ONE Stop: 04/03/19 19:35 Last Admin: 04/03/19 20:56 Dose: 5,000 units Documented by: [id number] Cosigned by: [id number] Heparin Sodium/Dextrose () 1 ea N/A ONE ONE; Protocol Stop: 04/03/19 18:48 Last Admin: 04/03/19 19:05 Dose: Not Given Documented by: [id number] Heparin Sodium (Porcine) 9,000 (units/ Syringe) 9 mls @ 10 mls/min IV ONE ONE Stop: 04/04/19 02:23 Last Admin: 04/04/19 02:43 Dose: 10 mls/min Documented by: [id number] Cosigned by: [id number] Heparin Sodium (Porcine) 5,000 (units/ Syringe) 5 mls @ 10 mls/min IV ONE ONE Stop: 04/05/19 05:01 Last Admin: 04/05/19 05:15 Dose: 10 mls/min Documented by: [id number] Cosigned by: [id number] Ioversol (Optiray 320 125ml) 119 ml IV ONCE PRN PRN Reason: Interaction Checking Stop: 04/07/19 18:16 Last Admin: 04/03/19 18:18 Dose: 1 ml Documented by: [id number] Oxycodone HCl (Roxicodone Immediate Rel) 5 mg PO NOW STA Stop: 04/04/19 02:02 Last Admin: 04/04/19 02:15 Dose: 5 mg Documented by: [id number] Critical Care Time Critical Care Time: Yes Total Critical Care Time: 90 I have personally spent 90 minutes of critical care time in the direct management of this patient. This includes bedside care, interpretation of diagnostic studies, and testing, discussion with consultants, patient, and family members, and other required patient management activities. This 90 minutes is in excess of all separately billable procedures. Medical Decision Making Differential Diagnosis Differential diagnoses includes but is not limited to pneumonia, bronchitis, COPD/Asthma exacerbation, pneumothorax, pulmonary embolism, congestive heart failure, acute coronary syndrome Medical Records Attestation: I reviewed the patient's medical records. Home Medications Current Medication List: was personally reviewed by me Laboratory Data Attestation: I reviewed the patient's lab results. Result diagrams: 04/06/19 05:32 04/06/19 05:32 Lab Results 04/03/19 04/03/19 04/03/19 Range/Units 17:05 17:07 17:07 WBC 12.55 H (4.8-10.8) K/uL RBC 4.43 L (4.7-6.1) M/uL Hgb 14.0 (14.0-18.0) g/dL POC Hgb (14.0-18.0) g/dl Hct 40.0 L (42-52) % POC Hct (42-52) % MCV 90.3 (80-100) fL MCH 31.6 (25-34) pg MCHC 35.0 (32-36) g/dL RDW Std Deviation 43.5 (36.4-46.3) fL RDW Coeff of Jimmy 13.1 (11.5-14.5) % Plt Count 198 (130-400) K/uL MPV 9.7 (7.4-10.4) fL Immature Gran % (Auto) 0.4 % Neut % (Auto) 73.6 % Lymph % (Auto) 12.0 % [place] % (Auto) 12.7 % Eos % (Auto) 1.0 % Baso % (Auto) 0.3 % Immature Gran # (Auto) 0.05 H (0.00-0.02) K/uL Neut # (Auto) 9.24 H (1.4-6.5) K/uL Lymph # (Auto) 1.51 (1.2-3.4) K/uL [place] # (Auto) 1.59 H (0.11-0.59) K/uL Eos # (Auto) 0.12 (0-0.5) K/uL Baso # (Auto) 0.04 (0-0.2) K/uL PT (9.0-12.0) Seconds INR (0.9-1.1) APTT (21.0-31.0) Seconds PTT Ratio POC Sodium (135-144) mEq/L Sodium 127 L (136-145) mmol/L POC Potassium (3.3-5.0) mEq/L Potassium 3.8 (3.5-5.1) mmol/L POC Chloride (101-112) mEq/L Chloride 95 L (98-107) mmol/L Carbon Dioxide 22 (21-32) mmol/L POC Total CO2 (24-31) mEq/l Anion Gap 10.0 (3-11) POC Anion Gap (16-25) mmol/L POC BUN (7-18) mg/dl BUN 29 H (7-18) mg/dl Creatinine 1.34 (0.6-1.4) mg/dl POC Creatinine (0.6-1.3) mg/dl Est Cr Clr Drug Dosing 98.2 ml/min Est GFR ( Amer) 68.2 Est GFR (Non-Af Amer) 58.8 BUN/Creatinine Ratio 21.4 H (10-20) Glucose 104 H (70-99) mg/dl POC Glucose (other) (70-99) mg/dl Calcium 8.1 L (8.5-10.1) mg/dl POC Ioniz Calcium Leela (1.12-1.32) mmol/l Total Bilirubin 0.8 (0.2-1) mg/dl AST 64 H (15-37) U/L ALT 96 H (12-78) U/L Alkaline Phosphatase 91 (45-117) U/L Total Creatine Kinase 41 (39-308) U/L CK-MB (CK-2) 2.8 (0.5-3.6) ng/ml CK/CKMB % Calc 6.8 H (0-3.0) Troponin I 0.453 H* (0-0.045) ng/ml NT-Pro-B Natriuret Pep (0-900) pg/ml Total Protein 6.8 (6.4-8.2) gm/dl Albumin 2.7 L (3.4-5.0) gm/dl Globulin 4.1 H (2.5-4.0) gm/dl Albumin/Globulin Ratio 0.7 L (0.9-2) Lipase 92 (73-393) U/L Urine Color Yellow Urine Appearance Clear (Clear) Urine pH 5.5 (4.5-7.5) Ur Specific Fries 1.020 (1.000-1.030) Urine Protein Trace H (Negative) Urine Glucose (UA) Negative (Negative) Urine Ketones Negative (Negative) Urine Blood 3+ H (Negative) Urine Nitrite Negative (Negative) Urine Bilirubin Negative (Negative) Urine Urobilinogen Negative (Negative) Ur Leukocyte Esterase Trace H (Negative) Urine RBC >30 H (0-4) /hpf Urine WBC 5-10 H (0-5) /hpf Ur Epithelial Cells 20-30 H (0-5) /lpf Urine Bacteria 1+ H (Negative) 04/03/19 04/03/19 04/03/19 Range/Units 17:07 17:15 20:24 WBC (4.8-10.8) K/uL RBC (4.7-6.1) M/uL Hgb (14.0-18.0) g/dL POC Hgb 14.3 (14.0-18.0) g/dl Hct (42-52) % POC Hct 42 (42-52) % MCV (80-100) fL MCH (25-34) pg MCHC (32-36) g/dL RDW Std Deviation (36.4-46.3) fL RDW Coeff of Jimmy (11.5-14.5) % Plt Count (130-400) K/uL MPV (7.4-10.4) fL Immature Gran % (Auto) % Neut % (Auto) % Lymph % (Auto) % [place] % (Auto) % Eos % (Auto) % Baso % (Auto) % Immature Gran # (Auto) (0.00-0.02) K/uL Neut # (Auto) (1.4-6.5) K/uL Lymph # (Auto) (1.2-3.4) K/uL [place] # (Auto) (0.11-0.59) K/uL Eos # (Auto) (0-0.5) K/uL Baso # (Auto) (0-0.2) K/uL PT 10.7 (9.0-12.0) Seconds INR 1.0 (0.9-1.1) APTT 25.4 (21.0-31.0) Seconds PTT Ratio 0.9 POC Sodium 127 L (135-144) mEq/L Sodium (136-145) mmol/L POC Potassium 3.8 (3.3-5.0) mEq/L Potassium (3.5-5.1) mmol/L POC Chloride 95 L (101-112) mEq/L Chloride (98-107) mmol/L Carbon Dioxide (21-32) mmol/L POC Total CO2 21 L (24-31) mEq/l Anion Gap (3-11) POC Anion Gap 16.0 (16-25) mmol/L POC BUN 26 H (7-18) mg/dl BUN (7-18) mg/dl Creatinine (0.6-1.4) mg/dl POC Creatinine 1.4 H (0.6-1.3) mg/dl Est Cr Clr Drug Dosing ml/min Est GFR ( Amer) Est GFR (Non-Af Amer) BUN/Creatinine Ratio (10-20) Glucose (70-99) mg/dl POC Glucose (other) 110 H (70-99) mg/dl Calcium (8.5-10.1) mg/dl POC Ioniz Calcium Leela 1.05 L (1.12-1.32) mmol/l Total Bilirubin (0.2-1) mg/dl AST (15-37) U/L ALT (12-78) U/L Alkaline Phosphatase (45-117) U/L Total Creatine Kinase (39-308) U/L CK-MB (CK-2) (0.5-3.6) ng/ml CK/CKMB % Calc (0-3.0) Troponin I (0-0.045) ng/ml NT-Pro-B Natriuret Pep 5539 H (0-900) pg/ml Total Protein (6.4-8.2) gm/dl Albumin (3.4-5.0) gm/dl Globulin (2.5-4.0) gm/dl Albumin/Globulin Ratio (0.9-2) Lipase (73-393) U/L Urine Color Urine Appearance (Clear) Urine pH (4.5-7.5) Ur Specific Fries (1.000-1.030) Urine Protein (Negative) Urine Glucose (UA) (Negative) Urine Ketones (Negative) Urine Blood (Negative) Urine Nitrite (Negative) Urine Bilirubin (Negative) Urine Urobilinogen (Negative) Ur Leukocyte Esterase (Negative) Urine RBC (0-4) /hpf Urine WBC (0-5) /hpf Ur Epithelial Cells (0-5) /lpf Urine Bacteria (Negative) Imaging Data Radiologist's Impression: Radiology results as stated below per my review and the radiologist's interpretation: CT angio chest PE protocol CLINICAL HISTORY: 58 years-old Male presenting with shortness of breath, aty pical chest pain, clinical concern for pulmonary embolus. TECHNIQUE: Multidetector CT angiography of the chest was performed after administration of intravenous contrast. 3-D volumetric and/or maximum intensity projection (MIP) images were subsequently reconstructed for review. IV contrast: 119 mL of Optiray 320. One or more dose lowering techniques were used consistent with the principles of ALARA (as low as reasonably achievable), including automatic exposure control, mA or kV adjustment to individual patient size, and/or use of iterative reconstruction. COMPARISON: Chest x-ray performed earlier today. CT DOSE (mGy.cm): The estimated cumulative dose is 1058.25 mGy.cm. FINDINGS: Mimeograph Operator topogram: Unremarkable. Pulmonary vasculature: The study is adequate for assessment of the pulmonary vascular tree. Extensive acute pulmonary emboli in the bilateral distal right and left pulmonary arteries extending into the lobar and segmental pulmonary arteries and all 5 lobes. In pulmonary artery enlarged measuring 4.4 cm in diameter. Flattening of the interventricular septum. No intracardiac filling defect. No reflux of contrast into the hepatic veins. Remaining chest: Soft tissues: Normal thyroid and thoracic inlet. No axillary, supraclavicular, mediastinal, or hilar lymphadenopathy. Normal aorta. Mild multichamber enlargement of the heart. Trace right pleural effusion. Upper abdomen normal. Lungs and airways: No pneumothorax. Central airways patent. Pulmonary arteries enlarged relative to adjacent bronchi. No interlobular septal thickening. Minimal dependent changes likely atelectasis. No other focal infiltrate. Musculoskeletal: Degenerative changes of the spine. IMPRESSION: 1. Extensive acute pulmonary emboli involving the distal right and left pulmonary arteries and extending into lobar and segmental pulmonary arteries in all 5 lobes. Importantly, there is also CT evidence of right heart strain. Correlate clinically. 2. No convincing evidence of a pulmonary infarct. 3. Trace right pleural effusion. The report will be called/faxed according to standard departmental protocol for a critical finding. Electronically signed by: Gary Chacko M.D. 04/03/2019 6:24 PM XR chest 1V portable CLINICAL HISTORY: 58 years-old Male presenting with Chest Pain. TECHNIQUE: Portable upright AP view of the chest was obtained. COMPARISON: 03/09/2019. FINDINGS: Cardiac silhouette borderline enlarged. No focal opacity. No large effusion or pneumothorax. Osseous structures normal. Upper abdomen normal. IMPRESSION: 1. Borderline cardiomegaly. No other convincing evidence of acute cardiopulmonary disease. Electronically signed by: Gary Chacko M.D. 04/03/2019 5:33 PM ECG Data Attestation: I personally reviewed and interpreted this ECG as follows: Indication: + SOB/dyspnea Rate (beats per minute): 92 Rhythm: + normal sinus ECG Intervals/blocks: + Normal QT-c (QTC is 437) ECG ST segments: + T-wave inversions (Inferior); no ST depression and no ST elevation Comparison ECG Date: from (04/27/2017) Change: the following changes noted (TWI are new compared to previous) Blood Pressure Blood Pressure Findings: Normal blood pressure Blood Pressure Disposition: did not require urgent referral MDM Narrative This is a 58-year-old male who presents emergency department complaining of shortness of breath. Due to the patient's recent surgery for prostate cancer and concern he has a PE therefore the patient was admitted sent for CAT scan of the chest. This is concerning for multiple PEs with right heart strain. Due to this the patient was started on a heparin bolus and drip. PT/INR and PTT were obtained. I did discuss the case with the hospitalist service who did agree to see the patient. Patient and family were in agreement with the treatment plan. Impression & Plan Bilateral pulmonary embolism, Hypoxia, DVT (deep venous thrombosis) Discharge Plan Visit Data *Final* Discharge Date/Time: 04/03/19 22:04 Chief Complaint: Shortness of Breath/Dyspnea Stated Complaint: SOB ED Provider: Kwesi Martins Discharge Problem: Bilateral pulmonary embolism, Hypoxia, DVT (deep venous thrombosis) Patient Disposition: Admitted As Inpatient Discharge Instructions Interventions: ED Discharge Assessment Last Done: 04/03/19 22:04 Discharge Problem: DVT (deep venous thrombosis) Qualifiers: DVT location: lower extremity Affected thrombotic vein of extremity: unspecified vein of extremity Chronicity: acute Laterality: unspecified laterality Qualified Code(s): I82.409 - Acute embolism and thrombosis of unspecified deep veins of unspecified lower extremity The scribe's documentation has been prepared under my direction and personally reviewed by me in its entirety. I confirm that the note above accurately refl ects all work, treatment, procedures, and medical decision making performed by me.
[2019-04-03] MEDS ORDERED: OPTIRAY 320 125ml IV PRN (18:17)
--- NOTE | 2019-04-03 18:26 | CT Scan Report ---
CT angio chest PE protocol CLINICAL HISTORY: 58 years-old Male presenting with shortness of breath, atypical chest pain, clinica l concern for pulmonary embolus. TECHNIQUE: Multidetector CT angiography of the chest was performed after administration of intravenou s contrast. 3-D volumetric and/or maximum intensity projection (MIP) images were subsequently reconst ructed for review. IV contrast: 119 mL of Optiray 320. One or more dose lowering techniques were used consistent with the principles of ALARA (as low as reasonably achievable), including automatic expos ure control, mA or kV adjustment to individual patient size, and/or use of iterative reconstruction. COMPARISON: Chest x-ray performed earlier today. CT DOSE (mGy.cm): The estimated cumulative dose is 1058.25 mGy.cm. FINDINGS: Technical Planner topogram: Unremarkable. Pulmonary vasculature: The study is adequate for assessment of the pulmonary vascular tree. Extensive acute pulmonary emboli in the bilateral distal right and left pulmonary arteries extending into the lobar and segmental pul monary arteries and all 5 lobes. In pulmonary artery enlarged measuring 4.4 cm in diameter. Flattenin g of the interventricular septum. No intracardiac filling defect. No reflux of contrast into the hepa tic veins. Remaining chest: Soft tissues: Normal thyroid and thoracic inlet. No axillary, supraclavicular, mediastinal, or hilar lymphadenopathy. Normal aorta. Mild multichamber enlargement of the heart. Trace right pleural effusi on. Upper abdomen normal. Lungs and airways: No pneumothorax. Central airways patent. Pulmonary arteries enlarged relative to a djacent bronchi. No interlobular septal thickening. Minimal dependent changes likely atelectasis. No other focal infiltrate. Musculoskeletal: Degenerative changes of the spine. IMPRESSION: 1. Extensive acute pulmonary emboli involving the distal right and left pulmonary arteries and exten ding into lobar and segmental pulmonary arteries in all 5 lobes. Importantly, there is also CT eviden ce of right heart strain. Correlate clinically. 2. No convincing evidence of a pulmonary infarct. 3. Trace right pleural effusion. The report will be called/faxed according to standard departmental protocol for a critical finding. Electronically signed by: Gary Chacko M.D. 04/03/2019 6:24 PM
[2019-04-03 18:30] LABS: Partial Thromboplastin Ratio 0.9; Partial Thromboplastin Time 25.4 Seconds (21.0-31.0); Prothrombin Time 10.7 Seconds (9.0-12.0)
[2019-04-03] MEDS ORDERED: Heparin IV Standard *NO* Bolus ONE (18:47)
[2019-04-03] MEDS: HEPARIN SODIUM/DEXTROSE 25,000 UNITS/500 ML BAG IV SCH (19:04)
[2019-04-03] MEDS ORDERED: HEPARIN SOD (PORCINE) 1000 UNIT/ML 10 ML VIAL IV ONE (19:34)
--- NOTE | 2019-04-03 20:22 | Ultrasound Report ---
US venous doppler LE BI CLINICAL HISTORY: 58 years-old Male presenting with pulmonary emboli, evaluate for DVT. TECHNIQUE: Real-time grayscale and color and spectral Doppler ultrasound imaging of the veins of the bilateral lower extremities was performed. Compression and augmentation were also utilized. COMPARISON: None. FINDINGS: RIGHT: Common femoral vein: Patent. Greater saphenous vein (superficial): Patent. Deep femoral vein: Patent. Femoral vein: Patent. Popliteal vein: Patent. Calf veins: Patent. LEFT: Common femoral vein: Expansion of the common femoral vein with a nonocclusive thrombus, which is acut e appearing. Greater saphenous vein (superficial): Patent. Deep femoral vein: Thrombus is extension of the common femoral vein thrombus. This is also nonocclusi ve. Femoral vein: Thrombus noted in the proximal and distal femoral vein, which is nonocclusive Popliteal vein: Patent. Calf veins: Patent. Other: None. IMPRESSION: 1. Nonocclusive acute deep venous thrombosis in the left common, superficial, and deep femoral veins . 2. No deep venous thrombosis in the right lower extremity. The report will be called/faxed according to standard departmental protocol for a critical finding. Electronically signed by: Gary Chacko M.D. 04/03/2019 8:21 PM
--- NOTE | 2019-04-03 20:56 | Critical Care Consultation ---
Date of Consultation April 03, 2019 Assessment & Plan (1) Admitted to intensive care unit: Reason Critically Ill: 58-year-old male with extensive bilateral pulmonary emboli resulting in severe dyspnea on exertion as well as hypoxia. Patient noted to have right heart strain with leaked troponins as well as elevated BNP. Status post prostatectomy on 03/24 precludes the use for emergent TPA and patient request to be admitted to this facility rather than to be transferred. NEURO - * CAM ICU: NEGATIVE * Pain: OxyIR as needed CARDIAC/VASCULAR - * Elevated Troponin: * Likely 2/2 demand ischemia in the setting of extensive pulmonary emboli. * Will trend. * Hypertension: * Continue home medications as previously prescribed. * Would allow for degree of permissive hypertension in the preload dependent patient. * EKG: NSR@98bpm, T-wave inversions inferiorly. QTc 439 ms. * Monitor on telemetry. RESPIRATORY - * Extensive bilateral pulmonary emboli: * Resulting in hypoxia and right heart strain. * With leaked troponins and elevated BNP from a strain pattern. * After extensive discussion regarding treatment modalities and limitations given patient's recent surgical intervention, the patient elects to be admitted to this facility on heparin alone. Understands that if he were to deteriorate clinically, we would proceed with emergent lysis with systemic TPA. Patient acknowledges this and wishes to proceed as such. * Supplemental O2 as needed. * Monitor closely for respiratory decompensation requiring need for emergent lysis. GI/NUTRITION - * Elevated LFTs: * Likely congestion pattern in the setting of cor pulmonale. * If worsens, consider ultrasound for evaluation of portal vein patency. RENAL/LYTES - * Hyponatremia: * Of uncertain etiology at this point. * Will continue to trend. * IVF: - * Prostate Cancer: * s/p radical laparoscopic-assisted retropubic prostatectomy, bilateral pelvic lymph node dissection with bladder neck reconstruction. * Defer to urology for ongoing management. * Schwartz in place - Strict I&Os. ENDO - * No history of diabetes or thyroid disease. * BSGs per unit protocol. ISS --> gtt per unit policy. HEME - * Stable H&H. * Monitor closely in the setting of need for anticoagulation. ID - * No concerns for infectious contribution at this time. LINES/IV ACCESS - * PIVs x1 * 20g Endurance Catheter to the RIGHT and LEFT forearms. * Schwartz DVT PROPHYLAXIS - * Heparin gtt * SCDs I have personally spent 35 minutes of critical care time in the direct ma nagement of this patient. This is a life/limb threatening event. This includes time spent evaluating patient, direct bedside care, chart review, placing orders, interpretation of diagnostic studies, discussion with consultants, patient, and family members, as well as other required patient management activities. This time is exclusive of all separately billable procedures, and teaching time and separate from and in addition to any other critical care service time. Thank you for allowing us to participate in the care of this patient. Please refer to my attending physician's documentation for any further recommendations. (2) Bilateral pulmonary embolism: (3) Hypoxia: (4) Dyspnea on exertion: (5) S/P prostatectomy: (6) Prostate cancer: (7) Morbid obesity: Supervising Physician Co-Signing Physician Notes I have personally evaluated and examined this patient. I agree with assessment and plan of Bozena Richardson PA-C. During my evaluation from 820pm - 8:50 pm the patient's vital signs did demonstrate a tachycardia he was satting in the low 90s on room air and felt much better. He is having exertional dyspnea which prompted him to seek treatment. He had a recent prostatectomy for prostate cancer, we discussed risks and benefits of heparin versus systemic thrombolysis versus transfer for evaluation of possible catheter directed thrombolysis. I reviewed his CT scan and he does appear to have flow to the entire periphery of the lung despite rather extensive clot burden, he also has distal appearing clots that may limit the utility of thrombolysis. In discussion I emphasized I would not proceed with systemic thrombolysis unless he appeared to be actively decompensating, I always emphasize we do not perform catheter directed TPA and should he decide to consider this option it is better to transfer emergently then to start treatment here and transfer later. I also emphasized that the transfer is for evaluation and possible management, joint medical decision making with family at the bedside he is decided to stay for treatment here. He desires to be full code in event of cardiac arrest, he does report he has expressed wishes if he ends up in a terminal condition. I have personally spent 30 minutes of critical care time in the direct management of this patient. This is a life/limb threatening event. This includes time spent evaluating patient, direct bedside care, chart review, placing orders, interpretation of diagnostic studies, discussion with consultants, patient, and/or family members regarding treatment decisions, as well as other required patient management activities. This time is exclusive of all separately billable procedures, and teaching time and separate from and in addition to any other critical care service time. History of Present Illness History of Present Illness Patient is a 58-year-old male with a significant past medical history of prostate cancer, hypertension, and obesity who underwent radical laparoscopic assisted retropubic prostatectomy with bilateral pelvic lymph load dissection and bladder neck reconstruction on 24 March. Patient reports that he had been struggling with pain at the site of his Schwartz catheter since initial postoperative days. He had been utilizing OxyContin as well as Ultram most recently. Despite this, he reports that he had persistent pain in the catheter area. Additionally, he reports that he was feeling dizzy lightheaded with any change in position. He was also complaining of significant shortness of breath. This is been for the last 3 to 4 days. He had been associating his symptoms with medication reaction. Today, the patient symptoms worsened and he was brought to the emergency department where he was found to have extensive bilateral pulmonary emboli with right heart strain and mild hypoxia. He has not had a history of clotting issues in the past. His mother reports a similar history of blood clots status post spinal surgery approximately 10 years ago. Despite the clot burden, the patient surprisingly denies any complaints of chest pain. He developed a slight cough today, but attributes that to feeling "dry". Upon evaluation in the emergency department, the patient is awake, alert, and oriented. He reports shortness of breath and lightheadedness with any exertion. While laying in bed, he denies any headaches, dizziness, lightheadedness, chest pain, palpitations, nausea, vomiting, abdominal pain, or numbness/weakness to the extremities. Allergies Allergy/AdvReac Type Severity Reaction Status Date / Time NSAIDS (Non-Steroidal Allergy Unknown SEE NOTES Verified 04/03/19 17:00 Anti-Inflamma BELOW Home Medications Home Medications Medication Instructions Recorded Confirmed Type lisinopril-hydrochlorothiazide 1 tab PO QPM 03/04/19 04/03/19 History amlodipine 5 mg PO QAM 03/09/19 04/03/19 History docusate sodium [Colace] 100 mg PO BID #60 cap 03/25/19 04/03/19 Rx oxybutynin chloride 5 mg PO BID PRN #60 tab 03/25/19 04/03/19 Rx tramadol 50 mg tablet 50 mg PO TID PRN #10 tab 04/01/19 04/03/19 Rx tamsulosin 0.4 mg PO DAILY 04/03/19 04/03/19 History Patient History Medical History Flat feet, bilateral (Acute) Hypertension (Acute) Morbid obesity Prostate cancer (Acute) Surgical History H/O sinus surgery (Acute) S/P left knee arthroscopy Family History Grandmother (Maternal) , of breast cancer age 86 No problems noted. Grandfather (Maternal) , in WW11 No problems noted. Grandfather (Paternal) , age 62 of heart attack No problems noted. Grandmother (Paternal) , age 86 with diabetes No problems noted. Father Age: 82 Heart disease heart stents and bypass Mother Age: 80 No problems noted. Sister Age: 64 No problems noted. Son Age: 22 No problems noted. Daughter Age: 16 No problems noted. 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 Other Information That Helps Us Care for You: No Feels Safe at Home: Yes Safety Concerns: Feels Safe At This Time Smoking Status: Never smoker Hx Alcohol Use: Yes Alcohol type: wine Alcohol Intake Frequency: Daily Hx Substance Use: No Childhood Exposure to Second-Hand Smoke: No caffeine: Yes (2 or 3 cups a day) during the past year weight has: remained stable Dental Care, Regularly: Yes Physical Activity Frequency: 1-2 Times per Week Seatbelt Use: always Sunscreen Use: Yes Do you think of yourself as: straight/heterosexual Sexual Activity: has been sexually active within the last 12 months Review of Systems Review of Systems: A complete 10 point review of systems was reviewed with the patient with pertinent positives and negatives as per history of present illness. All else were negative. Physical Exam Physical Exam: VITAL SIGNS - Vital signs and nursing notes were reviewed. GENERAL - 58-year-old male appearing his stated age who is in no acute distress. Communicates well with provider and answers questions appropriately. SKIN - Without rashes. HEAD - NC/AT. EYES - PERRL with EOMI bilaterally. Sclera anicteric. Palpebral conjunctiva pink and moist with no injection noted. EARS - No deformities of external structures noted on gross examination bilaterally. NOSE - Midline and without cyanosis. No epistaxis or purulent drainage noted. MOUTH/OROPHARYNX - Without perioral cyanosis. Buccal mucosa pink and moist and without leukoplakia. Tongue midline with equal elevation of palate bilaterally. NECK - Neck with FROM. Supple to palpation. No nuchal rigidity. LUNGS - Chest wall symmetric without accessory muscle use, intercostals retractions, or central cyanosis. Normal vesicular breath sounds CTA B/L. No wheezes, rales, or rhonchi appreciated. CARDIAC - RRR with S1/S2. No murmur, rubs, or gallops appreciated. ABDOMEN - Abdominal contour obese without pulsations or visible masses. BS normoactive all four quadrants. No tenderness, palpable masses, hepatosplenomegaly, or ascites noted. EXTREMITIES - No clubbing or peripheral cyanosis. No pretibial edema present. +3/5 radial and dorsalis pedis pulses palpated throughout. +5/5 strength noted in UE/LE bilaterally. NEUROLOGIC - Cranial nerves II through XII grossly intact. Sensory intact to light touch throughout. PSYCH - A&Ox3 and cooperates fully with examiner. Pt is very pleasant and interacts well with examiner. Results & Data Vital Signs (Past 12 Hours) Vital Signs Temp Pulse Pulse Resp BP BP Pulse Ox 04/03/19 18:00 94 H 18 111/79 96 04/03/19 17:17 90 18 93 04/03/19 17:09 93 04/03/19 16:55 95 H 31 H 92 04/03/19 16:41 36.8 C 96 H 30 H 132/61 86 L Coding Level of Care Code Critical Care 1st 30-74 mins Diagnoses Admitted to intensive care unit Z78.9 Bilateral pulmonary embolism I26.99 Hypoxia R09.02 Dyspnea on exertion R06.09 S/P prostatectomy Z90.79 Prostate cancer C61 Morbid obesity E66.01 Time Spent (min) 35
[2019-04-03] MEDS ORDERED: ICU PROTOCOL FOR HYPERGLYCEMIA PRN (22:36)
[2019-04-03] MEDS ORDERED: LEVALBUTEROL HCL 1.25 MG/3 ML NEB NEB PRN (22:36)
--- NOTE | 2019-04-03 23:44 | History and Physical Report ---
DATE OF ADMISSION: 04/03/2019 CHIEF COMPLAINT: Shortness of breath. HISTORY OF PRESENT ILLNESS: A 58-year-old male with past medical history significant for hypertension, obesity, prostate cancer, had a robotic prostatectomy done on March 24 comes with shortness of breath and found to have extensive pulmonary embolism with right heart strain. The patient says since last 2-3 days, he is getting short of breath, even getting up is making short of breath, but denies any chest pain. That is the reason he came to the ER. The patient says he is also not eating much because he is having difficulty swallowing. His states that mostly because he was not getting from the bed because of shortness of breath. Denies any cough. No fever, no chills, no headache, no blurred visions, no earache, no runny nose, no sore throat. He is sleeping okay. No nausea, no vomiting, no abdominal pain. Normal bowel movements. No blood in the stools or black stools. He is on Schwartz catheter and once in a while, he noticed some slight blood in the catheter, but right now, it is clear. He has a drain placed from his surgery and it has initially drained little bit, but right now is not draining much. He is hemodynamically stable, saturating okay on room air while resting. ALLERGIES: NSAIDS. PAST MEDICAL HISTORY: As mentioned above. PAST SURGICAL HISTORY: Left knee arthroscopy, prostate biopsy, sinus surgery, a polyp removed in childhood and recent robotic-assisted laparoscopic radical retropubic prostatectomy with bilateral pelvic lymph node dissection and bladder neck reconstruction. MEDICATIONS: Flomax 0.4 mg p.o. at bedtime, amlodipine 5 mg p.o. daily, lisinopril/hydrochlorothiazide 20/12.5 mg daily, oxybutynin 5 mg p.o. b.i.d. p.r.n., tramadol 50 mg p.o. t.i.d. p.r.n., Colace 100 mg p.o. b.i.d. FAMILY HISTORY: Significant for: Mother had blood clot. Father has high cholesterol and CAD with stent placement. SOCIAL HISTORY: . No smoking. Alcohol, 2 glasses of wine with dinner. No drug use. REVIEW OF SYMPTOMS: As per HPI. Rest of the systems is negative. PHYSICAL EXAMINATION: GENERAL: The patient is obese, not in acute distress. VITAL SIGNS: Temperature 36.8, pulse 100, respiratory rate 23, blood pressure 123/95, oxygen 92% on room air. HEENT: No pallor, no icterus. Pupils equal, round, and reactive to light. NECK: No JVD, no neck masses, no carotid bruits. CARDIOVASCULAR: S1, S2 heard, regular rate and rhythm, no murmur, no gallop. RESPIRATORY SYSTEM: Normal AP diameter. No accessory muscle use. No wheezing, no crackles. ABDOMEN: Soft. Recent surgical sites, no drainage seen, drained significant amount of blood. No distention. CENTRAL NERVOUS SYSTEM: Alert and awake and oriented. Moves extremities. Obeys commands. Nonfocal. EXTREMITIES: No edema, no erythema. LABORATORY DATA: WBC 12.5, hemoglobin 14, hematocrit 40, platelets 198. Sodium 127, potassium 3.8, chloride 95, bicarbonate 22, BUN 39, creatinine 1.3, serum glucose 104, calcium 8.1, total bilirubin 0.8, AST 64, ALT 96, alkaline phosphatase 91, total creatinine kinase 41. Troponin I 0.4. BNP 5500, lipase 92. Urinalysis, positive for +2 blood, trace leukocyte esterase. IMAGING: Chest x-ray, borderline cardiomegaly, no other convincing evidence of acute cardiopulmonary disease. Venous Doppler, nonocclusive venous Dopplers in the left, superficial and deep femoral veins, no deep venous thrombosis in the right lower extremity. CTA of the chest, extensive acute pulmonary emboli involving the distal right and left pulmonary arteries and extending into the lobar and subsegmental pulmonary arteries in all 5 lobes. Importantly, there is also CT evidence of right heart strain. No convincing evidence of pulmonary infarct, but trace left pleural effusion. EKG: Normal sinus rhythm, rate of 92, T-wave abnormality seen in inferior leads. ASSESSMENT AND PLAN: This is a 58-year-old male who presents with shortness of breath, found to have extensive pulmonary embolism and right heart strain. 1. Extensive pulmonary embolism, both the lungs involving the distal right and left pulmonary arteries, in all 5 lobes and also causing right heart strain - CAT scan. Troponin is 0.45. We will follow serial enzymes, echocardiogram. Discussed with the critical care. We are going to admit the patient to ICU, IV heparin started in the ER which we will continue and closely monitor. Currently hemodynamically stable.. 2. History of prostate cancer, status post robotic-assisted laparoscopic radical retropubic prostatectomy with bilateral pelvic lymph node dissection and bladder neck reconstruction on 03/24/2009, still has drain which is not draining much and on Schwartz catheter. Follow up with urology. 3. Hypertension. Continue amlodipine and lisinopril/hydrochlorothiazide with holding parameters. 4. Nutrition. Having difficulty swallowing. Full liquid diet for now. Speech evaluation when stable. 4. Deep venous thrombosis prophylaxis, on IV heparin. 5. Disposition. Closely monitoring in the ICU. Level 1 full code. MTDD
--- NOTE | 2019-04-04 00:02 | Procedure Note ---
Procedure Note Date of Service April 04, 2019 Procedure: Photographic Process Attendant Indwelling Peripherally Inserted IV Catheter Placement Attending: Dr. Olivares APC: Yoan Richardson PA-C Indication: Need for IV Access, Poor Vascular Access Anesthesia: None Verbal consent was obtained from patient prior to performing the procedure. A time-out was completed verifying correct patient, procedure, site, positioning, and implant(s) or special equipment if applicable. Utilizing bedside ultrasound, vascularity of the LEFT upper extremity was assessed. Vessel size was noted for appropriate catheter selection and skin was marked with gentle pressure. Patients LEFT upper extremity was prepped and draped in the usual sterile fashion utilizing chlorhexidine. Ultrasound guidance was used to aid needle placement. A 20 g Endurance Catheter was introduced into the LEFT forearm vein under direct ultrasound guidance. Guide wire was easily deployed without resistance. Catheter was threaded over the guide wire without resistance and the entire apparatus was removed intact. Good venous blood return was noted in the catheter. The IV catheter was easily flushed with sterile saline flush. Sterile clave was attached to the end of the catheter and good blood return was again noted. Tourniquet was released. StatLock device and sterile dressing were applied. The patient tolerated the procedure well. Blood Loss: Minimal Complications: None Procedural Ultrasound Guidance: Procedure Date: 04/04/2019 Indication: Poor Vascular Access Attending: Dr. Olivares APC: Yoan Richardson PA-C Artery/Veins Identified: YES Access confirmed in Vein with ultrasound: YES Complications: NONE Patient tolerated procedure: WELL Coding
--- NOTE | 2019-04-04 00:02 | Procedure Note ---
Procedure Note Date of Service April 04, 2019 Procedure: Stroke Coordinator Indwelling Peripherally Inserted IV Catheter Placement Attending: Dr. Olivares APC: Yoan Richardson PA-C Indication: Need for IV Access, Poor Vascular Access Anesthesia: None Verbal consent was obtained from patient prior to performing the procedure. A time-out was completed verifying correct patient, procedure, site, positioning, and implant(s) or special equipment if applicable. Utilizing bedside ultrasound, vascularity of the RIGHT upper extremity was assessed. Vessel size was noted for appropriate catheter selection and skin was marked with gentle pressure. Patients RIGHT upper extremity was prepped and draped in the usual sterile fashion utilizing chlorhexidine. Ultrasound guidance was used to aid needle placement. A 20 g Endurance Catheter was introduced into the RIGHT forearm vein under direct ultrasound guidance. Guide wire was easily deployed wi thout resistance. Catheter was threaded over the guide wire without resistance and the entire apparatus was removed intact. Good venous blood return was noted in the catheter. The IV catheter was easily flushed with sterile saline flush. Sterile clave was attached to the end of the catheter and good blood return was again noted. Tourniquet was released. StatLock device and sterile dressing were applied. The patient tolerated the procedure well. Blood Loss: Minimal Complications: None Procedural Ultrasound Guidance: Procedure Date: 04/04/2019 Indication: Poor Vascular Access Attending: Dr. Olivares APC: Yoan Richardson PA-C Artery/Veins Identified: YES Access confirmed in Vein with ultrasound: YES Complications: NONE Patient tolerated procedure: WELL Coding
[2019-04-04] MEDS ORDERED: OXYCODONE HCL IR 5 MG TAB (IMMEDIATE RELEASE) PO STA (02:01)
[2019-04-04 02:15] LABS: Partial Thromboplastin Ratio 1.5; Partial Thromboplastin Time 40.4 Seconds (21.0-31.0)
[2019-04-04] MEDS ORDERED: HEPARIN IV BOLUS 9,000 UNITS in SYRINGE 0 ML IV ONE (02:22)
[2019-04-04] MEDS: OXYBUTYNIN CHLORIDE 5 MG TAB PO PRN ×2 (02:42→18:57)
[2019-04-04 05:13] LABS: Basophils # (auto) 0.05 K/uL (0-0.2); Basophils % (auto) 0.4 %; Eosinophils # (auto) 0.04 K/uL (0-0.5); Eosinophils % (auto) 0.3 %; Hematocrit (blood only) 37.5 % (42-52); Immature Granulocytes # (auto) 0.05 K/uL (0.00-0.02); Immature Granulocytes % (auto) 0.4 %; Lymphocytes # (auto) 0.78 K/uL (1.2-3.4); Lymphocytes % (auto) 6.8 %; Mean Corpuscular Hemoglobin 30.9 pg (25-34); Mean Corpuscular Hgb Conc 34.7 g/dL (32-36); Mean Corpuscular Volume 89.1 fL (80-100); Monocytes # (auto) 1.51 K/uL (0.11-0.59); Monocytes % (auto) 13.2 %; Neutrophils % (auto) 78.9 %; Platelet Count 203 K/uL (130-400); RDW Coefficient of Variation 13.3 % (11.5-14.5); RDW Standard Deviation 43.3 fL (36.4-46.3); Red Blood Count 4.21 M/uL (4.7-6.1); White Blood Count 11.43 K/uL (4.8-10.8)
[2019-04-04 05:30] LABS: Calcium 8.1 mg/dl (8.5-10.1); Creatinine Clr Calc Pharmacy 103.2 ml/min; Est GFR (African American) 73.4; Est GFR (Non-African American) 63.3; Magnesium 2.1 mg/dl (1.8-2.4); Potassium 3.8 mmol/L (3.5-5.1)
[2019-04-04 05:38] LABS: Phosphorus 3.8 mg/dl (2.5-4.9); Troponin I 0.44 ng/ml (0-0.045)
[2019-04-04] MEDS: HEPARIN SODIUM/DEXTROSE 25,000 UNITS/500 ML BAG IV SCH ×2 (06:23→16:26)
--- NOTE | 2019-04-04 07:46 | Critical Care Progress Note ---
Date of Service April 04, 2019 Assessment & Plan (1) Admitted to intensive care unit: Reason Critically Ill: 58-year-old male with extensive bilateral pulmonary emboli resulting in severe dyspnea on exertion as well as hypoxia. Patient noted to have right heart strain with leaked troponins as well as elevated BNP. Status post prostatectomy on 03/24 precludes the use for emergent TPA and patient request to be admitted to this facility rather than to be transferred. NEURO - CAM ICU: NEGATIVE Pain: OxyIR as needed CARDIAC/VASCULAR - Elevated Troponin: Likely 2/2 demand ischemia in the setting of extensive pulmonary emboli. -trending peaked 0.479 most recent 0.440 Hypertension: Continue home medications as previously prescribed. On admit EKG: NSR@98bpm, T- wave inversions inferiorly. QTc 439 ms. -Would allow for degree of permissive hypertension in the preload dependent patient. -Monitor on telemetry. RESPIRATORY - Extensive bilateral pulmonary emboli: Resulting in hypoxia and right heart strain. With leaked troponins and elevated BNP from a strain pattern.After extensive discussion regarding treatment modalities and limitations given patient's recent surgical intervention, the patient elects to be admitted to this facility on heparin alone. Understands that if he were to deteriorate clinically, we would proceed with emergent lysis with systemic TPA. Patient acknowledges this and wishes to proceed as such. -Supplemental O2 as needed. -Monitor closely for respiratory decompensation requiring need for emergent lysis. GI/NUTRITION - Elevated LFTs: Likely congestion pattern in the setting of cor pulmonale. If worsens, consider ultrasound for evaluation of portal vein patency. -trend LFTS RENAL/LYTES - Hyponatremia: Of uncertain etiology at this point. Improving -130 today continue to trend. - Prostate Cancer: s/p radical laparoscopic-assisted retropubic prostatectomy, bilateral pelvic lymph node dissection with bladder neck reconstruction. -Defer to urology for ongoing management. -Schwartz in place - Strict I&Os. ENDO - No history of diabetes or thyroid disease. BSGs per unit protocol. ISS --> gtt per unit policy. HEME - Stable H&H. hgb 13.0 today Monitor closely in the setting of need for anticoagulation. ID - No concerns for infectious contribution at this time. LINES/IV ACCESS - PIVs x1 20g Endurance Catheter to the RIGHT and LEFT forearms. Schwartz DVT PROPHYLAXIS - Heparin gtt SCDs Dispo: stable for downgrade Thank you for allowing us to participate in the care of this patient. Please refer to my attending physician's documentation for any further recommendations. (2) Bilateral pulmonary embolism: (3) Hypoxia: (4) Dyspnea on exertion: (5) S/P prostatectomy: (6) Prostate cancer: (7) Morbid obesity: Supervising Physician Co-Signing Physician Notes Dr. Chaney was resident physician during care of patient. I separately evaluated patient for hayes portions of the history and the exam. I was present during the critical portion of medical decision making, and I discussed the case with the resident. I generally agree with the findings and plan. Patient's hemodynamics have improved, participating in physical therapy. Lactic acid resolved. Echocardiogram completed this morning. Patient stable for downgrade out of ICU Subjective Reports his exertional dyspnea has improved, he was able to stand at the edge of the bed. Denies chest pain. Palpitations with exertion. Review of Systems Review of Systems: As per HPI Physical Exam Physical Exam: General: Alert. nontoxic. Skin: Warm, dry, Head: Atraumatic Ears, nose, mouth and throat: airway patent Cardiovascular: Normal peripheral perfusion Respiratory: no respiratory distress Gastrointestinal: Non distended Musculoskeletal: No deformity : Schwartz present Results & Data Vital Signs (Past 12 Hours) Vital Signs Temp Pulse Pulse Resp BP BP Pulse Ox 04/04/19 07:31 84 04/04/19 06:20 85 16 93 04/04/19 06:16 89 16 112/78 92 04/04/19 06:10 86 18 92 04/04/19 06:00 86 18 93 04/04/19 05:46 92 H 16 127/81 94 04/04/19 05:30 86 21 94 04/04/19 05:16 91 H 17 128/84 94 04/04/19 05:10 93 H 17 96 04/04/19 05:00 89 16 92 04/04/19 04:46 91 H 20 125/83 92 04/04/19 04:40 91 H 19 92 04/04/19 04:30 91 H 23 88 L 04/04/19 04:20 92 H 20 89 L 04/04/19 04:16 89 30 H 131/91 91 04/04/19 03:46 93 H 21 134/81 94 04/04/19 03:30 37.0 C 93 H 28 H 94 04/04/19 03:16 92 H 28 H 147/91 H 89 L 04/04/19 03:00 85 31 H 90 04/04/19 02:47 93 H 29 H 145/91 H 92 04/04/19 02:30 76 28 H 94 04/04/19 02:16 94 H 31 H 144/96 H 92 04/04/19 02:00 93 H 35 H 93 04/04/19 01:46 93 H 22 142/95 H 91 04/04/19 01:30 81 27 H 93 04/04/19 01:16 93 H 27 H 168/91 H 92 04/04/19 01:00 95 H 27 H 95 04/04/19 00:47 99 H 31 H 151/95 H 94 04/04/19 00:30 97 H 16 94 04/04/19 00:16 97 H 23 117/88 92 04/04/19 00:00 95 H 23 93 04/03/19 23:47 100 H 21 95 04/03/19 23:46 98 H 22 130/88 94 04/03/19 23:35 101 H 21 122/91 94 04/03/19 23:30 99 H 25 H 98 04/03/19 23:00 100 H 26 H 93 04/03/19 22:48 37.0 C 99 H 24 131/88 93 04/03/19 22:40 102 H 25 H 95 04/03/19 22:36 101 H 04/03/19 22:30 98 H 31 H 91 04/03/19 22:20 99 H 21 90 04/03/19 22:16 101 H 33 H 135/90 92 04/03/19 22:15 99 H 24 131/88 92 04/03/19 22:14 105 H 27 H 04/03/19 21:01 100 H 23 123/95 92 Laboratory Results 04/04/19 04/04/19 04/04/19 Range/Units 09:44 04:57 04:57 WBC (4.8-10.8) K/uL RBC (4.7-6.1) M/uL Hgb (14.0-18.0) g/dL POC Hgb (14.0-18.0) g/dl Hct (42-52) % POC Hct (42-52) % MCV (80-100) fL MCH (25-34) pg MCHC (32-36) g/dL RDW Std Deviation (36.4-46.3) fL RDW Coeff of Jimmy (11.5-14.5) % Plt Count (130-400) K/uL MPV (7.4-10.4) fL Immature Gran % (Auto) % Neut % (Auto) % Lymph % (Auto) % [place] % (Auto) % Eos % (Auto) % Baso % (Auto) % Immature Gran # (Auto) (0.00-0.02) K/uL Neut # (Auto) (1.4-6.5) K/uL Lymph # (Auto) (1.2-3.4) K/uL [place] # (Auto) (0.11-0.59) K/uL Eos # (Auto) (0-0.5) K/uL Baso # (Auto) (0-0.2) K/uL PT (9.0-12.0) Seconds INR (0.9-1.1) APTT 60.2 H* (21.0-31.0) Seconds PTT Ratio 2.2 POC Sodium (135-144) mEq/L Sodium 130 L (136-145) mmol/L POC Potassium (3.3-5.0) mEq/L Potassium 3.8 (3.5-5.1) mmol/L POC Chloride (101-112) mEq/L Chloride 99 (98-107) mmol/L Carbon Dioxide 24 (21-32) mmol/L POC Total CO2 (24-31) mEq/l Anion Gap 7.0 (3-11) POC Anion Gap (16-25) mmol/L POC BUN (7-18) mg/dl BUN 25 H (7-18) mg/dl Creatinine 1.26 (0.6-1.4) mg/dl POC Creatinine (0.6-1.3) mg/dl Est Cr Clr Drug Dosing 103.2 ml/min Est GFR ( Amer) 73.4 Est GFR (Non-Af Amer) 63.3 BUN/Creatinine Ratio 20.0 (10-20) Glucose 138 H (70-99) mg/dl POC Glucose (70-99) POC Glucose (other) (70-99) mg/dl Lactate 1.6 (0.4-2.0) mmol/L Calcium 8.1 L (8.5-10.1) mg/dl POC Ioniz Calcium Leela (1.12-1.32) mmol/l Phosphorus 3.8 (2.5-4.9) mg/dl Magnesium 2.1 (1.8-2.4) mg/dl Total Bilirubin (0.2-1) mg/dl AST (15-37) U/L ALT (12-78) U/L Alkaline Phosphatase (45-117) U/L Total Creatine Kinase (39-308) U/L CK-MB (CK-2) (0.5-3.6) ng/ml CK/CKMB % Calc (0-3.0) Troponin I 0.440 H* (0-0.045) ng/ml NT-Pro-B Natriuret Pep (0-900) pg/ml Total Protein (6.4-8.2) gm/dl Albumin (3.4-5.0) gm/dl Globulin (2.5-4.0) gm/dl Albumin/Globulin Ratio (0.9-2) Lipase (73-393) U/L Urine Color Urine Appearance (Clear) Urine pH (4.5-7.5) Ur Specific [place] (1.000-1.030) Urine Protein (Negative) Urine Glucose (UA) (Negative) Urine Ketones (Negative) Urine Blood (Negative) Urine Nitrite (Negative) Urine Bilirubin (Negative) Urine Urobilinogen (Negative) Ur Leukocyte Esterase (Negative) Urine RBC (0-4) /hpf Urine WBC (0-5) /hpf Ur Epithelial Cells (0-5) /lpf Urine Bacteria (Negative) Nasal Screen MRSA (PCR) (Negative) 04/04/19 04/04/19 04/04/19 Range/Units 04:57 01:53 01:50 WBC 11.43 H (4.8-10.8) K/uL RBC 4.21 L (4.7-6.1) M/uL Hgb 13.0 L (14.0-18.0) g/dL POC Hgb (14.0-18.0) g/dl Hct 37.5 L (42-52) % POC Hct (42-52) % MCV 89.1 (80-100) fL MCH 30.9 (25-34) pg MCHC 34.7 (32-36) g/dL RDW Std Deviation 43.3 (36.4-46.3) fL RDW Coeff of Jimmy 13.3 (11.5-14.5) % Plt Count 203 (130-400) K/uL MPV 10.0 (7.4-10.4) fL Immature Gran % (Auto) 0.4 % Neut % (Auto) 78.9 % Lymph % (Auto) 6.8 % [place] % (Auto) 13.2 % Eos % (Auto) 0.3 % Baso % (Auto) 0.4 % Immature Gran # (Auto) 0.05 H (0.00-0.02) K/uL Neut # (Auto) 9.00 H (1.4-6.5) K/uL Lymph # (Auto) 0.78 L (1.2-3.4) K/uL [place] # (Auto) 1.51 H (0.11-0.59) K/uL Eos # (Auto) 0.04 (0-0.5) K/uL Baso # (Auto) 0.05 (0-0.2) K/uL PT (9.0-12.0) Seconds INR (0.9-1.1) APTT 40.4 H (21.0-31.0) Seconds PTT Ratio 1.5 POC Sodium (135-144) mEq/L Sodium (136-145) mmol/L POC Potassium (3.3-5.0) mEq/L Potassium (3.5-5.1) mmol/L POC Chloride (101-112) mEq/L Chloride (98-107) mmol/L Carbon Dioxide (21-32) mmol/L POC Total CO2 (24-31) mEq/l Anion Gap (3-11) POC Anion Gap (16-25) mmol/L POC BUN (7-18) mg/dl BUN (7-18) mg/dl Creatinine (0.6-1.4) mg/dl POC Creatinine (0.6-1.3) mg/dl Est Cr Clr Drug Dosing ml/min Est GFR ( Amer) Est GFR (Non-Af Amer) BUN/Creatinine Ratio (10-20) Glucose (70-99) mg/dl POC Glucose 125 H (70-99) POC Glucose (other) (70-99) mg/dl Lactate (0.4-2.0) mmol/L Calcium (8.5-10.1) mg/dl POC Ioniz Calcium Leela (1.12-1.32) mmol/l Phosphorus (2.5-4.9) mg/dl Magnesium (1.8-2.4) mg/dl Total Bilirubin (0.2-1) mg/dl AST (15-37) U/L ALT (12-78) U/L Alkaline Phosphatase (45-117) U/L Total Creatine Kinase (39-308) U/L CK-MB (CK-2) (0.5-3.6) ng/ml CK/CKMB % Calc (0-3.0) Troponin I (0-0.045) ng/ml NT-Pro-B Natriuret Pep (0-900) pg/ml Total Protein (6.4-8.2) gm/dl Albumin (3.4-5.0) gm/dl Globulin (2.5-4.0) gm/dl Albumin/Globulin Ratio (0.9-2) Lipase (73-393) U/L Urine Color Urine Appearance (Clear) Urine pH (4.5-7.5) Ur Specific [place] (1.000-1.030) Urine Protein (Negative) Urine Glucose (UA) (Negative) Urine Ketones (Negative) Urine Blood (Negative) Urine Nitrite (Negative) Urine Bilirubin (Negative) Urine Urobilinogen (Negative) Ur Leukocyte Esterase (Negative) Urine RBC (0-4) /hpf Urine WBC (0-5) /hpf Ur Epithelial Cells (0-5) /lpf Urine Bacteria (Negative) Nasal Screen MRSA (PCR) (Negative) 04/03/19 04/03/19 04/03/19 Range/Units 23:11 23:11 22:40 WBC (4.8-10.8) K/uL RBC (4.7-6.1) M/uL Hgb (14.0-18.0) g/dL POC Hgb (14.0-18.0) g/dl Hct (42-52) % POC Hct (42-52) % MCV (80-100) fL MCH (25-34) pg MCHC (32-36) g/dL RDW Std Deviation (36.4-46.3) fL RDW Coeff of Jimmy (11.5-14.5) % Plt Count (130-400) K/uL MPV (7.4-10.4) fL Immature Gran % (Auto) % Neut % (Auto) % Lymph % (Auto) % [place] % (Auto) % Eos % (Auto) % Baso % (Auto) % Immature Gran # (Auto) (0.00-0.02) K/uL Neut # (Auto) (1.4-6.5) K/uL Lymph # (Auto) (1.2-3.4) K/uL [place] # (Auto) (0.11-0.59) K/uL Eos # (Auto) (0-0.5) K/uL Baso # (Auto) (0-0.2) K/uL PT (9.0-12.0) Seconds INR (0.9-1.1) APTT (21.0-31.0) Seconds PTT Ratio POC Sodium (135-144) mEq/L Sodium (136-145) mmol/L POC Potassium (3.3-5.0) mEq/L Potassium (3.5-5.1) mmol/L POC Chloride (101-112) mEq/L Chloride (98-107) mmol/L Carbon Dioxide (21-32) mmol/L POC Total CO2 (24-31) mEq/l Anion Gap (3-11) POC Anion Gap (16-25) mmol/L POC BUN (7-18) mg/dl BUN (7-18) mg/dl Creatinine (0.6-1.4) mg/dl POC Creatinine (0.6-1.3) mg/dl Est Cr Clr Drug Dosing ml/min Est GFR ( Amer) Est GFR (Non-Af Amer) BUN/Creatinine Ratio (10-20) Glucose (70-99) mg/dl POC Glucose (70-99) POC Glucose (other) (70-99) mg/dl Lactate 3.1 H* (0.4-2.0) mmol/L Calcium (8.5-10.1) mg/dl POC Ioniz Calcium Leela (1.12-1.32) mmol/l Phosphorus (2.5-4.9) mg/dl Magnesium (1.8-2.4) mg/dl Total Bilirubin (0.2-1) mg/dl AST (15-37) U/L ALT (12-78) U/L Alkaline Phosphatase (45-117) U/L Total Creatine Kinase (39-308) U/L CK-MB (CK-2) (0.5-3.6) ng/ml CK/CKMB % Calc (0-3.0) Troponin I 0.479 H* (0-0.045) ng/ml NT-Pro-B Natriuret Pep (0-900) pg/ml Total Protein (6.4-8.2) gm/dl Albumin (3.4-5.0) gm/dl Globulin (2.5-4.0) gm/dl Albumin/Globulin Ratio (0.9-2) Lipase (73-393) U/L Urine Color Urine Appearance (Clear) Urine pH (4.5-7.5) Ur Specific [place] (1.000-1.030) Urine Protein (Negative) Urine Glucose (UA) (Negative) Urine Ketones (Negative) Urine Blood (Negative) Urine Nitrite (Negative) Urine Bilirubin (Negative) Urine Urobilinogen (Negative) Ur Leukocyte Esterase (Negative) Urine RBC (0-4) /hpf Urine WBC (0-5) /hpf Ur Epithelial Cells (0-5) /lpf Urine Bacteria (Negative) Nasal Screen MRSA (PCR) Negative (Negative) 04/03/19 04/03/19 04/03/19 Range/Units 20:24 17:15 17:07 WBC (4.8-10.8) K/uL RBC (4.7-6.1) M/uL Hgb (14.0-18.0) g/dL POC Hgb 14.3 (14.0-18.0) g/dl Hct (42-52) % POC Hct 42 (42-52) % MCV (80-100) fL MCH (25-34) pg MCHC (32-36) g/dL RDW Std Deviation (36.4-46.3) fL RDW Coeff of Jimmy (11.5-14.5) % Plt Count (130-400) K/uL MPV (7.4-10.4) fL Immature Gran % (Auto) % Neut % (Auto) % Lymph % (Auto) % [place] % (Auto) % Eos % (Auto) % Baso % (Auto) % Immature Gran # (Auto) (0.00-0.02) K/uL Neut # (Auto) (1.4-6.5) K/uL Lymph # (Auto) (1.2-3.4) K/uL [place] # (Auto) (0.11-0.59) K/uL Eos # (Auto) (0-0.5) K/uL Baso # (Auto) (0-0.2) K/uL PT 10.7 (9.0-12.0) Seconds INR 1.0 (0.9-1.1) APTT 25.4 (21.0-31.0) Seconds PTT Ratio 0.9 POC Sodium 127 L (135-144) mEq/L Sodium (136-145) mmol/L POC Potassium 3.8 (3.3-5.0) mEq/L Potassium (3.5-5.1) mmol/L POC Chloride 95 L (101-112) mEq/L Chloride (98-107) mmol/L Carbon Dioxide (21-32) mmol/L POC Total CO2 21 L (24-31) mEq/l Anion Gap (3-11) POC Anion Gap 16.0 (16-25) mmol/L POC BUN 26 H (7-18) mg/dl BUN (7-18) mg/dl Creatinine (0.6-1.4) mg/dl POC Creatinine 1.4 H (0.6-1.3) mg/dl Est Cr Clr Drug Dosing ml/min Est GFR ( Amer) Est GFR (Non-Af Amer) BUN/Creatinine Ratio (10-20) Glucose (70-99) mg/dl POC Glucose (70-99) POC Glucose (other) 110 H (70-99) mg/dl Lactate (0.4-2.0) mmol/L Calcium (8.5-10.1) mg/dl POC Ioniz Calcium Leela 1.05 L (1.12-1.32) mmol/l Phosphorus (2.5-4.9) mg/dl Magnesium (1.8-2.4) mg/dl Total Bilirubin (0.2-1) mg/dl AST (15-37) U/L ALT (12-78) U/L Alkaline Phosphatase (45-117) U/L Total Creatine Kinase (39-308) U/L CK-MB (CK-2) (0.5-3.6) ng/ml CK/CKMB % Calc (0-3.0) Troponin I (0-0.045) ng/ml NT-Pro-B Natriuret Pep 5539 H (0-900) pg/ml Total Protein (6.4-8.2) gm/dl Albumin (3.4-5.0) gm/dl Globulin (2.5-4.0) gm/dl Albumin/Globulin Ratio (0.9-2) Lipase (73-393) U/L Urine Color Urine Appearance (Clear) Urine pH (4.5-7.5) Ur Specific [place] (1.000-1.030) Urine Protein (Negative) Urine Glucose (UA) (Negative) Urine Ketones (Negative) Urine Blood (Negative) Urine Nitrite (Negative) Urine Bilirubin (Negative) Urine Urobilinogen (Negative) Ur Leukocyte Esterase (Negative) Urine RBC (0-4) /hpf Urine WBC (0-5) /hpf Ur Epithelial Cells (0-5) /lpf Urine Bacteria (Negative) Nasal Screen MRSA (PCR) (Negative) 04/03/19 04/03/19 04/03/19 Range/Units 17:07 17:07 17:05 WBC 12.55 H (4.8-10.8) K/uL RBC 4.43 L (4.7-6.1) M/uL Hgb 14.0 (14.0-18.0) g/dL POC Hgb (14.0-18.0) g/dl Hct 40.0 L (42-52) % POC Hct (42-52) % MCV 90.3 (80-100) fL MCH 31.6 (25-34) pg MCHC 35.0 (32-36) g/dL RDW Std Deviation 43.5 (36.4-46.3) fL RDW Coeff of Jimmy 13.1 (11.5-14.5) % Plt Count 198 (130-400) K/uL MPV 9.7 (7.4-10.4) fL Immature Gran % (Auto) 0.4 % Neut % (Auto) 73.6 % Lymph % (Auto) 12.0 % [place] % (Auto) 12.7 % Eos % (Auto) 1.0 % Baso % (Auto) 0.3 % Immature Gran # (Auto) 0.05 H (0.00-0.02) K/uL Neut # (Auto) 9.24 H (1.4-6.5) K/uL Lymph # (Auto) 1.51 (1.2-3.4) K/uL [place] # (Auto) 1.59 H (0.11-0.59) K/uL Eos # (Auto) 0.12 (0-0.5) K/uL Baso # (Auto) 0.04 (0-0.2) K/uL PT (9.0-12.0) Seconds INR (0.9-1.1) APTT (21.0-31.0) Seconds PTT Ratio POC Sodium (135-144) mEq/L Sodium 127 L (136-145) mmol/L POC Potassium (3.3-5.0) mEq/L Potassium 3.8 (3.5-5.1) mmol/L POC Chloride (101-112) mEq/L Chloride 95 L (98-107) mmol/L Carbon Dioxide 22 (21-32) mmol/L POC Total CO2 (24-31) mEq/l Anion Gap 10.0 (3-11) POC Anion Gap (16-25) mmol/L POC BUN (7-18) mg/dl BUN 29 H (7-18) mg/dl Creatinine 1.34 (0.6-1.4) mg/dl POC Creatinine (0.6-1.3) mg/dl Est Cr Clr Drug Dosing 98.2 ml/min Est GFR ( Amer) 68.2 Est GFR (Non-Af Amer) 58.8 BUN/Creatinine Ratio 21.4 H (10-20) Glucose 104 H (70-99) mg/dl POC Glucose (70-99) POC Glucose (other) (70-99) mg/dl Lactate (0.4-2.0) mmol/L Calcium 8.1 L (8.5-10.1) mg/dl POC Ioniz Calcium Leela (1.12-1.32) mmol/l Phosphorus (2.5-4.9) mg/dl Magnesium (1.8-2.4) mg/dl Total Bilirubin 0.8 (0.2-1) mg/dl AST 64 H (15-37) U/L ALT 96 H (12-78) U/L Alkaline Phosphatase 91 (45-117) U/L Total Creatine Kinase 41 (39-308) U/L CK-MB (CK-2) 2.8 (0.5-3.6) ng/ml CK/CKMB % Calc 6.8 H (0-3.0) Troponin I 0.453 H* (0-0.045) ng/ml NT-Pro-B Natriuret Pep (0-900) pg/ml Total Protein 6.8 (6.4-8.2) gm/dl Albumin 2.7 L (3.4-5.0) gm/dl Globulin 4.1 H (2.5-4.0) gm/dl Albumin/Globulin Ratio 0.7 L (0.9-2) Lipase 92 (73-393) U/L Urine Color Yellow Urine Appearance Clear (Clear) Urine pH 5.5 (4.5-7.5) Ur Specific [place] 1.020 (1.000-1.030) Urine Protein Trace H (Negative) Urine Glucose (UA) Negative (Negative) Urine Ketones Negative (Negative) Urine Blood 3+ H (Negative) Urine Nitrite Negative (Negative) Urine Bilirubin Negative (Negative) Urine Urobilinogen Negative (Negative) Ur Leukocyte Esterase Trace H (Negative) Urine RBC >30 H (0-4) /hpf Urine WBC 5-10 H (0-5) /hpf Ur Epithelial Cells 20-30 H (0-5) /lpf Urine Bacteria 1+ H (Negative) Nasal Screen MRSA (PCR) (Negative) Resident Activity Tracking Resident Involvement: Resident Care Provided Care Provided: Adult Hospital Medicine (ICU)
[2019-04-04] MEDS: DOCUSATE SODIUM 100 MG CAP PO SCH ×2 (08:29→20:57)
[2019-04-04] MEDS: TAMSULOSIN HCL 0.4 MG CAP PO SCH (08:30)
[2019-04-04] MEDS: AMLODIPINE BESYLATE 5 MG TAB PO SCH (08:30)
[2019-04-04] MEDS ORDERED: TRAMADOL HCL 50 MG TABLET PO PRN (09:45)
[2019-04-04] MEDS ORDERED: OXYCODONE HCL IR 5 MG TAB (IMMEDIATE RELEASE) PO PRN (10:18)
[2019-04-04 10:24] LABS: Partial Thromboplastin Ratio 2.2
[2019-04-04 10:25] LABS: Partial Thromboplastin Time 60.2 Seconds (21.0-31.0)
[2019-04-04] MEDS: OXYCODONE HCL IR 5 MG TAB (IMMEDIATE RELEASE) PO PRN ×2 (10:33→18:11)
--- NOTE | 2019-04-04 11:02 | Urology Consultation ---
Date of Consultation April 04, 2019 Assessment & Plan (1) S/P prostatectomy: (2) Bilateral pulmonary embolism: 58yo M admitted with bilateral pulmonary embolism with right heart strain, LLE DVT POD #11 s/p RARLP, BRLND Okay to anticoagulate as necessary from our standpoint. Discussed plan of care with DR. Dorian Rosa to discontinue KAROLYN drain now. Plan to remove kent catheter tomorrow as originally planned postoperatively. We will continue to monitor peripherally while inpatient. History of Present Illness Reason for Consultation: post prostatectomy Requesting Physician: Dr. Hoover Attending Physician: Hazel Hoover MD History of Present Illness 58yo M admitted for shortness of breath POD #11 s/p RALRP, BPLND with Dr. Alarcon. and father at bedside. Pt found to have extensive bilateral pulmonary embolism with right heart strain on CT. Venous doppler reveals extensive left DVT. Currently on heparin GTT and supplemental O2, 5LNC. Since discharge home patient has had issues with pain control, which have limited his ability to ambulate. Per , he has been able to stand to take a shower but beyond that he has been essentially immobile, lying flat on his couch. Still with discomfort from kent catheter, improved with use of oxybutynin. Pt able to speak in full sentences, slightly SOB with talking. States "how I feel does not correlate with what's going on". Denies n/v/f/c. KAROLYN remains intact from surgery, minimal output. Kent draining clear yellow. Incisions c/d/i VSS, nontoxic Allergies Allergy/AdvReac Type Severity Reaction Status Date / Time NSAIDS (Non-Steroidal Allergy Unknown SEE NOTES Verified 04/03/19 17:00 Anti-Inflamma BELOW Home Medications Home Medications Medication Instructions Recorded Confirmed Type lisinopril-hydrochlorothiazide 1 tab PO QPM 03/04/19 04/03/19 History amlodipine 5 mg PO QAM 03/09/19 04/03/19 History docusate sodium [Colace] 100 mg PO BID #60 cap 03/25/19 04/03/19 Rx oxybutynin chloride 5 mg PO BID PRN #60 tab 03/25/19 04/03/19 Rx tramadol 50 mg tablet 50 mg PO TID PRN #10 tab 04/01/19 04/03/19 Rx tamsulosin 0.4 mg PO DAILY 04/03/19 04/03/19 History Patient History Medical History Flat feet, bilateral (Acute) Hypertension (Acute) Morbid obesity Prostate cancer (Acute) Surgical History H/O sinus surgery (Acute) S/P left knee arthroscopy Family History Grandmother (Maternal) , of breast cancer age 86 No problems noted. Grandfather (Maternal) , in WW11 No problems noted. Grandfather (Paternal) , age 62 of heart attack No problems noted. Grandmother (Paternal) , age 86 with diabetes No problems noted. Father Age: 82 Heart disease heart stents and bypass Mother Age: 80 No problems noted. Sister Age: 64 No problems noted. Son Age: 22 No problems noted. Daughter Age: 16 No problems noted. 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 Other Information That Helps Us Care for You: No Feels Safe at Home: Yes Safety Concerns: Feels Safe At This Time Smoking Status: Never smoker Hx Alcohol Use: Yes Alcohol type: wine Alcohol Intake Frequency: Daily Hx Substance Use: No Childhood Exposure to Second-Hand Smoke: No caffeine: Yes (2 or 3 cups a day) during the past year weight has: remained stable Dental Care, Regularly: Yes Physical Activity Frequency: 1-2 Times per Week Seatbelt Use: always Sunscreen Use: Yes Do you think of yourself as: straight/heterosexual Sexual Activity: has been sexually active within the last 12 months Review of Systems Review of Systems: All systems reviewed & are unremarkable except as noted in HPI & below Physical Exam Physical Exam: A&Ox3 Resp rate shallow, o2 intact kent draining clear yellow incisions c/d/i KAROLYN draining very scant serosang Results & Data Vital Signs (Past 12 Hours) Vital Signs Temp Pulse Resp BP Pulse Ox 04/04/19 11:00 93 H 19 144/96 H 97 04/04/19 10:01 36.7 C 82 16 122/80 93 04/04/19 09:00 83 17 138/90 94 04/04/19 08:00 36.7 C 90 21 141/91 H 95 04/04/19 07:31 84 04/04/19 07:00 88 30 H 132/83 96 04/04/19 06:20 85 16 93 04/04/19 06:16 89 16 112/78 92 04/04/19 06:10 86 18 92 04/04/19 06:00 86 18 93 04/04/19 05:46 92 H 16 127/81 94 04/04/19 05:30 86 21 94 04/04/19 05:16 91 H 17 128/84 94 04/04/19 05:10 93 H 17 96 04/04/19 05:00 89 16 92 04/04/19 04:46 91 H 20 125/83 92 04/04/19 04:40 91 H 19 92 04/04/19 04:30 91 H 23 88 L 04/04/19 04:20 92 H 20 89 L 04/04/19 04:16 89 30 H 131/91 91 04/04/19 03:46 93 H 21 134/81 94 04/04/19 03:30 37.0 C 93 H 28 H 94 04/04/19 03:16 92 H 28 H 147/91 H 89 L 04/04/19 03:00 85 31 H 90 04/04/19 02:47 93 H 29 H 145/91 H 92 04/04/19 02:30 76 28 H 94 04/04/19 02:16 94 H 31 H 144/96 H 92 04/04/19 02:00 93 H 35 H 93 04/04/19 01:46 93 H 22 142/95 H 91 04/04/19 01:30 81 27 H 93 04/04/19 01:16 93 H 27 H 168/91 H 92 04/04/19 01:00 95 H 27 H 95 04/04/19 00:47 99 H 31 H 151/95 H 94 04/04/19 00:30 97 H 16 94 04/04/19 00:16 97 H 23 117/88 92 04/04/19 00:00 95 H 23 93 04/03/19 23:47 100 H 21 95 04/03/19 23:46 98 H 22 130/88 94 04/03/19 23:35 101 H 21 122/91 94 04/03/19 23:30 99 H 25 H 98 PG Care Time/CCT Total # of Minutes Spent Total Time Spent with Patient: Total time spent is greater than 50% in short order fry cook rdination of care (as documented) at patient's floor/unit and/or counseling patient:
--- NOTE | 2019-04-04 13:05 | Hospitalist Progress Note ---
Date of Service April 04, 2019 Assessment & Plan (1) Bilateral pulmonary embolism: admitted with severe Dyspnea on exertion with hypoxia CT chest shows extensive bilateral PE , left lower extremity DVT ECHO : evidence of right heart strain pt had recent robotic prostatectomy POD #11 for prostate ca was not a candidate for tPA pt reports of having significant pain due to kent catheter on discharged which limited his movement stayed on recliner > 8 hrs day for the past 2 weeks possible provoked DVT due to immobolity post op leading to PE IV heparin wt based protocol still given the extent of PE pt will need life long anticoagulation admitted to ICU for close monitoring of hemodynamics appreciate input from ICU team (2) S/P prostatectomy: hx or prostate CA s/p Robotic prostatectomy done on 03/24/[address] Alarcon still has kent catheter Urology consulted appreciate input full code DVT PROPHYLAXIS : on Iv heparin wt based protocol Subjective pt reports of feeling a bit better today no complain of SOB at rest /still hypoxic on 5L 02 via nasal canula denies of pluritic chest pain no cough or hemoptysis Review of Systems Review of Systems: All systems reviewed & are unremarkable except as noted in HPI & below Physical Exam Constitutional: WD/WN, vitals as above no acute distress Eyes: PERRL, conjunctivae normal, anicteric sclerae ENMT: external ear and nose normal, oropharynx normal Neck: trachea midline, no thyromegaly Respiratory: no respiratory distress and no cough Auscultation: + diminished lung sounds Cardiovascular: RRR, no murmur, no edema Musculoskeletal: no cyanosis or clubbing, extremities motor strength 5/5 Skin: no rashes, warm and dry Neurologic: PERRL, EOMI, accommodation nl, no face palsy, no dysarthria Psychiatric: A+Ox3, euthymic affect Results & Data Vital Signs (Past 12 Hours) Vital Signs Temp Pulse Resp BP Pulse Ox 04/04/19 12:00 81 25 H 146/95 H 95 04/04/19 11:30 36.4 C L 82 17 144/96 H 96 04/04/19 11:29 80 04/04/19 11:00 93 H 19 144/96 H 97 04/04/19 10:01 36.7 C 82 16 122/80 93 04/04/19 09:00 83 17 138/90 94 04/04/19 08:00 36.7 C 90 21 141/91 H 95 04/04/19 07:31 84 04/04/19 07:00 88 30 H 132/83 96 04/04/19 06:20 85 16 93 04/04/19 06:16 89 16 112/78 92 04/04/19 06:10 86 18 92 04/04/19 06:00 86 18 93 04/04/19 05:46 92 H 16 127/81 94 04/04/19 05:30 86 21 94 04/04/19 05:16 91 H 17 128/84 94 04/04/19 05:10 93 H 17 96 04/04/19 05:00 89 16 92 04/04/19 04:46 91 H 20 125/83 92 04/04/19 04:40 91 H 19 92 04/04/19 04:30 91 H 23 88 L 04/04/19 04:20 92 H 20 89 L 04/04/19 04:16 89 30 H 131/91 91 04/04/19 03:46 93 H 21 134/81 94 04/04/19 03:30 37.0 C 93 H 28 H 94 04/04/19 03:16 92 H 28 H 147/91 H 89 L 04/04/19 03:00 85 31 H 90 04/04/19 02:47 93 H 29 H 145/91 H 92 04/04/19 02:30 76 28 H 94 04/04/19 02:16 94 H 31 H 144/96 H 92 04/04/19 02:00 93 H 35 H 93 04/04/19 01:46 93 H 22 142/95 H 91 04/04/19 01:30 81 27 H 93 04/04/19 01:16 93 H 27 H 168/91 H 92
--- NOTE | 2019-04-04 15:30 | Billing Data ---
Date of Service April 04, 2019 Coding Level of Care Code 41667 Subseq Hosp Care Lvl 3
[2019-04-04] MEDS: LISINOPRIL/HCTZ 20/12.5MG 1 TAB TAB PO SCH (20:57)
[2019-04-05] MEDS: HEPARIN SODIUM/DEXTROSE 25,000 UNITS/500 ML BAG IV SCH ×3 (02:44→21:12)
[2019-04-05 04:24] LABS: Basophils # (auto) 0.05 K/uL (0-0.2); Basophils % (auto) 0.6 %; Eosinophils # (auto) 0.16 K/uL (0-0.5); Eosinophils % (auto) 1.8 %; Hematocrit (blood only) 37.5 % (42-52); Hemoglobin 12.6 g/dL (14.0-18.0); Immature Granulocytes # (auto) 0.03 K/uL (0.00-0.02); Immature Granulocytes % (auto) 0.3 %; Lymphocytes # (auto) 1.51 K/uL (1.2-3.4); Lymphocytes % (auto) 17.3 %; Mean Corpuscular Hemoglobin 30.5 pg (25-34); Mean Corpuscular Hgb Conc 33.6 g/dL (32-36); Mean Corpuscular Volume 90.8 fL (80-100); Mean Platelet Volume 9.5 fL (7.4-10.4); Monocytes # (auto) 1.14 K/uL (0.11-0.59); Neutrophils # (auto) 5.85 K/uL (1.4-6.5); Platelet Count 219 K/uL (130-400); RDW Coefficient of Variation 13.4 % (11.5-14.5); RDW Standard Deviation 44.3 fL (36.4-46.3); Red Blood Count 4.13 M/uL (4.7-6.1); White Blood Count 8.74 K/uL (4.8-10.8)
[2019-04-05 04:36] LABS: Partial Thromboplastin Ratio 1.6; Partial Thromboplastin Time 44.1 Seconds (21.0-31.0)
[2019-04-05] MEDS: OXYBUTYNIN CHLORIDE 5 MG TAB PO PRN (04:42)
[2019-04-05 04:53] LABS: BUN Creatinine Ratio 16.8 (10-20); Calcium 8.2 mg/dl (8.5-10.1); Creatinine Clr Calc Pharmacy 102.5 ml/min; Est GFR (African American) 72.7; Est GFR (Non-African American) 62.7; Magnesium 2.2 mg/dl (1.8-2.4)
[2019-04-05] MEDS ORDERED: HEPARIN IV BOLUS 5,000 UNITS in SYRINGE 0 ML IV ONE (05:00)
[2019-04-05] MEDS: TAMSULOSIN HCL 0.4 MG CAP PO SCH (08:30)
[2019-04-05] MEDS: DOCUSATE SODIUM 100 MG CAP PO SCH ×2 (08:30→21:12)
[2019-04-05] MEDS: AMLODIPINE BESYLATE 5 MG TAB PO SCH (08:30)
--- NOTE | 2019-04-05 09:15 | Hospitalist Progress Note ---
Date of Service April 05, 2019 Assessment & Plan (1) Bilateral pulmonary embolism: admitted with severe Dyspnea on exertion with hypoxia CT chest shows extensive bilateral PE , left lower extremity DVT ECHO : evidence of right heart strain pt had recent robotic prostatectomy on 03/24/19 for Prostate ca was not a candidate for tPA pt reports of having significant pain due to kent catheter on discharged which limited his movement stayed on recliner > 8 hrs day for the past 2 weeks possible provoked DVT due to immobolity post op leading to PE IV heparin wt based protocol given the extent of PE pt will need life long anticoagulation on IV heparin wt based protocol will cont IV heparin for next 24 hr /if clinically improved ( less hypoxia , SOB ) plan to transition to NOAC /eliquis 5 mg BID t pt will need life long anticoagulation (2) S/P prostatectomy: hx or prostate CA s/p Robotic prostatectomy done on 03/24/[address] Alarcon advanced Prostate CA with lymph node spread Urology consulted appreciate input /kent catheter removed , voiding trial per Urology full code DVT PROPHYLAXIS : on Iv heparin wt based protocol DISPOSITION: expected to be discharged home when medically stable will need 2 step exercise prior to discharge to assess home 02 needs Subjective breathing much better today less short of breath , no cough , no pluritic chest pain no fever or chills Review of Systems Review of Systems: All systems reviewed & are unremarkable except as noted in HPI & below Physical Exam Constitutional: WD/WN, vitals as above no acute distress Eyes: PERRL, conjunctivae normal, anicteric sclerae ENMT: external ear and nose normal, oropharynx normal Neck: trachea midline, no thyromegaly Respiratory: no respiratory distress and no cough Auscultation: + diminished lung sounds Cardiovascular: RRR, no murmur, no edema Musculoskeletal: no cyanosis or clubbing, extremities motor strength 5/5 Skin: no rashes, warm and dry Neurologic: PERRL, EOMI, accommodation nl, no face palsy, no dysarthria Psychiatric: A+Ox3, euthymic affect Results & Data Vital Signs (Past 12 Hours) Vital Signs Temp Pulse Pulse Pulse Resp BP BP 04/05/19 07:26 36.6 C 77 20 110/73 04/05/19 04:21 36.4 C L 66 20 121/78 04/05/19 00:21 36.3 C L 69 18 104/65 04/04/19 22:45 83 Pulse Ox 04/05/19 07:26 97 04/05/19 04:21 97 04/05/19 00:21 96 04/04/19 22:45
[2019-04-05 11:49] LABS: Partial Thromboplastin Ratio 2.1
[2019-04-05 11:59] LABS: Partial Thromboplastin Time 57.7 Seconds (21.0-31.0)
--- NOTE | 2019-04-05 13:52 | Urology Progress Note ---
Date of Service April 05, 2019 Assessment & Plan (1) S/P prostatectomy: 58-year-old male postoperative day #12 status post robotic prostatectomy and bilateral pelvic lymph node dissection complicated by bilateral DVT and pulmonary embolus with shortness of breath. Trial of void is planned today. Aggressive pathology, somewhat expected is reviewed with the patient today. Postoperative visit is scheduled in April; we will see then as planned. Further therapy for his prostate cancer in the future would not be unexpected. Risk factors for DVT include the patient's cancer diagnosis, pelvic lymph node dissection, morbid obesity as well as his significant lack of mobility postoperatively. Cleared for full anticoagulation from our perspective. Some hematuria would not be unexpected. No acute intervention at this time, further management of the patient's postoperative medical issues per the primary service. We will follow while admitted. (2) Bilateral pulmonary embolism: (3) DVT (deep venous thrombosis): Subjective 58-year-old male postoperative day #12 status post robotic prostatectomy and bilateral pelvic lymph node dissection readmitted due to bilateral DVTs and pulmonary emboli. He reports that his shortness of breath is somewhat improved since admission. Interval notes since his discharge are reviewed personally. His KAROLYN drain was removed yesterday without incident and a trial of void was undertaken today as scheduled as an outpatient. Review of Systems Constitutional: no fever and no chills Eyes: no diplopia Ear, Nose, Mouth, Throat: no ear trauma Respiratory: no hemoptysis Cardiovascular: + dyspnea (Improved) Gastrointestinal: + abdominal pain; no vomiting Integumentary: no acne and no boil Neurologic: no paralysis Psychiatric: no hopelessness Allergy / Immunological: no tongue swelling Physical Exam Constitutional: + morbidly obese; no acute distress Eyes: eyes not dysmorphic ENMT: Ears: no external ear abnormality Neck: trachea midline; no anterior neck swelling Respiratory: no respiratory distress and does not use accessory muscles Cardiovascular: Vessels: radial pulses present Gastrointestinal (Abdomen): Inspection/Auscultation: + abdomen distended (Obese) Percussion/Palpation: abdomen soft; abdomen nontender Incisions clean dry and intact with Dermabond Musculoskeletal: Head/Neck/Chest: normocephalic and neck supple Skin: normal turgor Neurologic: awake; not obtunded Psychiatric: Orientation: oriented x 3 Lymphatic: no lymphadenopathy Results & Data Vital Signs (Past 12 Hours) Vital Signs Temp Pulse Pulse Pulse Resp BP BP 04/05/19 11:30 36.4 C L 79 18 123/71 04/05/19 10:44 04/05/19 10:05 81 04/05/19 07:26 36.6 C 77 20 110/73 04/05/19 04:21 36.4 C L 66 20 121/78 Pulse Ox Pulse Ox Pulse Ox 04/05/19 11:30 93 04/05/19 10:44 97 97 04/05/19 10:05 04/05/19 07:26 97 04/05/19 04:21 97 Laboratory Results Laboratory Results - last 48 hr 04/03/19 04/03/19 04/03/19 17:05 17:07 17:07 WBC 12.55 H RBC 4.43 L Hgb 14.0 POC Hgb Hct 40.0 L POC Hct MCV 90.3 MCH 31.6 MCHC 35.0 RDW Std Deviation 43.5 RDW Coeff of Jimmy 13.1 Plt Count 198 MPV 9.7 Immature Gran % (Auto) 0.4 Neut % (Auto) 73.6 Lymph % (Auto) 12.0 [place] % (Auto) 12.7 Eos % (Auto) 1.0 Baso % (Auto) 0.3 Immature Gran # (Auto) 0.05 H Neut # (Auto) 9.24 H Lymph # (Auto) 1.51 [place] # (Auto) 1.59 H Eos # (Auto) 0.12 Baso # (Auto) 0.04 PT INR APTT PTT Ratio POC Sodium Sodium 127 L POC Potassium Potassium 3.8 POC Chloride Chloride 95 L Carbon Dioxide 22 POC Total CO2 Anion Gap 10.0 POC Anion Gap POC BUN BUN 29 H Creatinine 1.34 POC Creatinine Est Cr Clr Drug Dosing 98.2 Est GFR ( Amer) 68.2 Est GFR (Non-Af Amer) 58.8 BUN/Creatinine Ratio 21.4 H Glucose 104 H POC Glucose POC Glucose (other) Lactate Calcium 8.1 L POC Ioniz Calcium Leela Phosphorus Magnesium Total Bilirubin 0.8 AST 64 H ALT 96 H Alkaline Phosphatase 91 Total Creatine Kinase 41 CK-MB (CK-2) 2.8 CK/CKMB % Calc 6.8 H Troponin I 0.453 H* NT-Pro-B Natriuret Pep Total Protein 6.8 Albumin 2.7 L Globulin 4.1 H Albumin/Globulin Ratio 0.7 L Lipase 92 Urine Color Yellow Urine Appearance Clear Urine pH 5.5 Ur Specific [place] 1.020 Urine Protein Trace H Urine Glucose (UA) Negative Urine Ketones Negative Urine Blood 3+ H Urine Nitrite Negative Urine Bilirubin Negative Urine Urobilinogen Negative Ur Leukocyte Esterase Trace H Urine RBC >30 H Urine WBC 5-10 H Ur Epithelial Cells 20-30 H Urine Bacteria 1+ H Nasal Screen MRSA (PCR) 04/03/19 04/03/19 04/03/19 17:07 17:15 20:24 WBC RBC Hgb POC Hgb 14.3 Hct POC Hct 42 MCV MCH MCHC RDW Std Deviation RDW Coeff of Jimmy Plt Count MPV Immature Gran % (Auto) Neut % (Auto) Lymph % (Auto) [place] % (Auto) Eos % (Auto) Baso % (Auto) Immature Gran # (Auto) Neut # (Auto) Lymph # (Auto) [place] # (Auto) Eos # (Auto) Baso # (Auto) PT 10.7 INR 1.0 APTT 25.4 PTT Ratio 0.9 POC Sodium 127 L Sodium POC Potassium 3.8 Potassium POC Chloride 95 L Chloride Carbon Dioxide POC Total CO2 21 L Anion Gap POC Anion Gap 16.0 POC BUN 26 H BUN Creatinine POC Creatinine 1.4 H Est Cr Clr Drug Dosing Est GFR ( Amer) Est GFR (Non-Af Amer) BUN/Creatinine Ratio Glucose POC Glucose POC Glucose (other) 110 H Lactate Calcium POC Ioniz Calcium Leela 1.05 L Phosphorus Magnesium Total Bilirubin AST ALT Alkaline Phosphatase Total Creatine Kinase CK-MB (CK-2) CK/CKMB % Calc Troponin I NT-Pro-B Natriuret Pep 5539 H Total Protein Albumin Globulin Albumin/Globulin Ratio Lipase Urine Color Urine Appearance Urine pH Ur Specific [place] Urine Protein Urine Glucose (UA) Urine Ketones Urine Blood Urine Nitrite Urine Bilirubin Urine Urobilinogen Ur Leukocyte Esterase Urine RBC Urine WBC Ur Epithelial Cells Urine Bacteria Nasal Screen MRSA (PCR) 04/03/19 04/03/19 04/03/19 22:40 23:11 23:11 WBC RBC Hgb POC Hgb Hct POC Hct MCV MCH MCHC RDW Std Deviation RDW Coeff of Jimmy Plt Count MPV Immature Gran % (Auto) Neut % (Auto) Lymph % (Auto) [place] % (Auto) Eos % (Auto) Baso % (Auto) Immature Gran # (Auto) Neut # (Auto) Lymph # (Auto) [place] # (Auto) Eos # (Auto) Baso # (Auto) PT INR APTT PTT Ratio POC Sodium Sodium POC Potassium Potassium POC Chloride Chloride Carbon Dioxide POC Total CO2 Anion Gap POC Anion Gap POC BUN BUN Creatinine POC Creatinine Est Cr Clr Drug Dosing Est GFR ( Amer) Est GFR (Non-Af Amer) BUN/Creatinine Ratio Glucose POC Glucose POC Glucose (other) Lactate 3.1 H* Calcium POC Ioniz Calcium Leela Phosphorus Magnesium Total Bilirubin AST ALT Alkaline Phosphatase Total Creatine Kinase CK-MB (CK-2) CK/CKMB % Calc Troponin I 0.479 H* NT-Pro-B Natriuret Pep Total Protein Albumin Globulin Albumin/Globulin Ratio Lipase Urine Color Urine Appearance Urine pH Ur Specific [place] Urine Protein Urine Glucose (UA) Urine Ketones Urine Blood Urine Nitrite Urine Bilirubin Urine Urobilinogen Ur Leukocyte Esterase Urine RBC Urine WBC Ur Epithelial Cells Urine Bacteria Nasal Screen MRSA (PCR) Negative 04/04/19 04/04/19 04/04/19 01:50 01:53 04:57 WBC 11.43 H RBC 4.21 L Hgb 13.0 L POC Hgb Hct 37.5 L POC Hct MCV 89.1 MCH 30.9 MCHC 34.7 RDW Std Deviation 43.3 RDW Coeff of Jimmy 13.3 Plt Count 203 MPV 10.0 Immature Gran % (Auto) 0.4 Neut % (Auto) 78.9 Lymph % (Auto) 6.8 [place] % (Auto) 13.2 Eos % (Auto) 0.3 Baso % (Auto) 0.4 Immature Gran # (Auto) 0.05 H Neut # (Auto) 9.00 H Lymph # (Auto) 0.78 L [place] # (Auto) 1.51 H Eos # (Auto) 0.04 Baso # (Auto) 0.05 PT INR APTT 40.4 H PTT Ratio 1.5 POC Sodium Sodium POC Potassium Potassium POC Chloride Chloride Carbon Dioxide POC Total CO2 Anion Gap POC Anion Gap POC BUN BUN Creatinine POC Creatinine Est Cr Clr Drug Dosing Est GFR ( Amer) Est GFR (Non-Af Amer) BUN/Creatinine Ratio Glucose POC Glucose 125 H POC Glucose (other) Lactate Calcium POC Ioniz Calcium Leela Phosphorus Magnesium Total Bilirubin AST ALT Alkaline Phosphatase Total Creatine Kinase CK-MB (CK-2) CK/CKMB % Calc Troponin I NT-Pro-B Natriuret Pep Total Protein Albumin Globulin Albumin/Globulin Ratio Lipase Urine Color Urine Appearance Urine pH Ur Specific [place] Urine Protein Urine Glucose (UA) Urine Ketones Urine Blood Urine Nitrite Urine Bilirubin Urine Urobilinogen Ur Leukocyte Esterase Urine RBC Urine WBC Ur Epithelial Cells Urine Bacteria Nasal Screen MRSA (PCR) 04/04/19 04/04/19 04/04/19 04:57 04:57 09:44 WBC RBC Hgb POC Hgb Hct POC Hct MCV MCH MCHC RDW Std Deviation RDW Coeff of Jimmy Plt Count MPV Immature Gran % (Auto) Neut % (Auto) Lymph % (Auto) [place] % (Auto) Eos % (Auto) Baso % (Auto) Immature Gran # (Auto) Neut # (Auto) Lymph # (Auto) [place] # (Auto) Eos # (Auto) Baso # (Auto) PT INR APTT 60.2 H* PTT Ratio 2.2 POC Sodium Sodium 130 L POC Potassium Potassium 3.8 POC Chloride Chloride 99 Carbon Dioxide 24 POC Total CO2 Anion Gap 7.0 POC Anion Gap POC BUN BUN 25 H Creatinine 1.26 POC Creatinine Est Cr Clr Drug Dosing 103.2 Est GFR ( Amer) 73.4 Est GFR (Non-Af Amer) 63.3 BUN/Creatinine Ratio 20.0 Glucose 138 H POC Glucose POC Glucose (other) Lactate 1.6 Calcium 8.1 L POC Ioniz Calcium Leela Phosphorus 3.8 Magnesium 2.1 Total Bilirubin AST ALT Alkaline Phosphatase Total Creatine Kinase CK-MB (CK-2) CK/CKMB % Calc Troponin I 0.440 H* NT-Pro-B Natriuret Pep Total Protein Albumin Globulin Albumin/Globulin Ratio Lipase Urine Color Urine Appearance Urine pH Ur Specific [place] Urine Protein Urine Glucose (UA) Urine Ketones Urine Blood Urine Nitrite Urine Bilirubin Urine Urobilinogen Ur Leukocyte Esterase Urine RBC Urine WBC Ur Epithelial Cells Urine Bacteria Nasal Screen MRSA (PCR) 04/04/19 04/05/19 04/05/19 11:21 04:09 04:09 WBC 8.74 RBC 4.13 L Hgb 12.6 L POC Hgb Hct 37.5 L POC Hct MCV 90.8 MCH 30.5 MCHC 33.6 RDW Std Deviation 44.3 RDW Coeff of Jimmy 13.4 Plt Count 219 MPV 9.5 Immature Gran % (Auto) 0.3 Neut % (Auto) 67.0 Lymph % (Auto) 17.3 [place] % (Auto) 13.0 Eos % (Auto) 1.8 Baso % (Auto) 0.6 Immature Gran # (Auto) 0.03 H Neut # (Auto) 5.85 Lymph # (Auto) 1.51 [place] # (Auto) 1.14 H Eos # (Auto) 0.16 Baso # (Auto) 0.05 PT INR APTT PTT Ratio POC Sodium Sodium 137 D POC Potassium Potassium 4.0 POC Chloride Chloride 105 Carbon Dioxide 28 POC Total CO2 Anion Gap 4.0 POC Anion Gap POC BUN BUN 21 H Creatinine 1.27 POC Creatinine Est Cr Clr Drug Dosing 102.5 Est GFR ( Amer) 72.7 Est GFR (Non-Af Amer) 62.7 BUN/Creatinine Ratio 16.8 Glucose 104 H POC Glucose 131 H POC Glucose (other) Lactate Calcium 8.2 L POC Ioniz Calcium Leela Phosphorus Magnesium 2.2 Total Bilirubin AST ALT Alkaline Phosphatase Total Creatine Kinase CK-MB (CK-2) CK/CKMB % Calc Troponin I NT-Pro-B Natriuret Pep Total Protein Albumin Globulin Albumin/Globulin Ratio Lipase Urine Color Urine Appearance Urine pH Ur Specific [place] Urine Protein Urine Glucose (UA) Urine Ketones Urine Blood Urine Nitrite Urine Bilirubin Urine Urobilinogen Ur Leukocyte Esterase Urine RBC Urine WBC Ur Epithelial Cells Urine Bacteria Nasal Screen MRSA (PCR) 04/05/19 04/05/19 04:09 11:15 WBC RBC Hgb POC Hgb Hct POC Hct MCV MCH MCHC RDW Std Deviation RDW Coeff of Jimmy Plt Count MPV Immature Gran % (Auto) Neut % (Auto) Lymph % (Auto) [place] % (Auto) Eos % (Auto) Baso % (Auto) Immature Gran # (Auto) Neut # (Auto) Lymph # (Auto) [place] # (Auto) Eos # (Auto) Baso # (Auto) PT INR APTT 44.1 H 57.7 H* PTT Ratio 1.6 2.1 POC Sodium Sodium POC Potassium Potassium POC Chloride Chloride Carbon Dioxide POC Total CO2 Anion Gap POC Anion Gap POC BUN BUN Creatinine POC Creatinine Est Cr Clr Drug Dosing Est GFR ( Amer) Est GFR (Non-Af Amer) BUN/Creatinine Ratio Glucose POC Glucose POC Glucose (other) Lactate Calcium POC Ioniz Calcium [place]ela Phosphorus Magnesium Total Bilirubin AST ALT Alkaline Phosphatase Total Creatine Kinase CK-MB (CK-2) CK/CKMB % Calc Troponin I NT-Pro-B Natriuret Pep Total Protein Albumin Globulin Albumin/Globulin Ratio Lipase Urine Color Urine Appearance Urine pH Ur Specific [place] Urine Protein Urine Glucose (UA) Urine Ketones Urine Blood Urine Nitrite Urine Bilirubin Urine Urobilinogen Ur Leukocyte Esterase Urine RBC Urine WBC Ur Epithelial Cells Urine Bacteria Nasal Screen MRSA (PCR) PG Care Time/CCT Total # of Minutes Spent Total Time Spent with Patient: Total time spent is greater than 50% in coordination of care (as documented) at patient's floor/unit and/or counseling patient:
[2019-04-05] MEDS: LISINOPRIL/HCTZ 20/12.5MG 1 TAB TAB PO SCH (21:12)
[2019-04-06 06:18] LABS: Basophils # (auto) 0.07 K/uL (0-0.2); Basophils % (auto) 0.8 %; Eosinophils # (auto) 0.19 K/uL (0-0.5); Eosinophils % (auto) 2.3 %; Hematocrit (blood only) 38.9 % (42-52); Hemoglobin 13.4 g/dL (14.0-18.0); Immature Granulocytes # (auto) 0.03 K/uL (0.00-0.02); Immature Granulocytes % (auto) 0.4 %; Lymphocytes # (auto) 1.41 K/uL (1.2-3.4); Lymphocytes % (auto) 16.7 %; Mean Corpuscular Hemoglobin 31.4 pg (25-34); Mean Corpuscular Hgb Conc 34.4 g/dL (32-36); Mean Corpuscular Volume 91.1 fL (80-100); Mean Platelet Volume 9.6 fL (7.4-10.4); Monocytes # (auto) 0.98 K/uL (0.11-0.59); Monocytes % (auto) 11.6 %; Neutrophils # (auto) 5.75 K/uL (1.4-6.5); Neutrophils % (auto) 68.2 %; Platelet Count 242 K/uL (130-400); RDW Coefficient of Variation 13.4 % (11.5-14.5); RDW Standard Deviation 44.2 fL (36.4-46.3); Red Blood Count 4.27 M/uL (4.7-6.1); White Blood Count 8.43 K/uL (4.8-10.8)
[2019-04-06 06:38] LABS: Partial Thromboplastin Ratio 1.8
[2019-04-06 06:48] LABS: Partial Thromboplastin Time 49.3 Seconds (21.0-31.0)
[2019-04-06 06:52] LABS: Calcium 8.6 mg/dl (8.5-10.1); Creatinine Clr Calc Pharmacy 113.8 ml/min; Est GFR (African American) 85.6; Est GFR (Non-African American) 73.8; Magnesium 2.1 mg/dl (1.8-2.4); Potassium 3.7 mmol/L (3.5-5.1)
[2019-04-06] MEDS: HEPARIN SODIUM/DEXTROSE 25,000 UNITS/500 ML BAG IV SCH ×2 (07:02→15:49)
--- NOTE | 2019-04-06 07:46 | Hospitalist Progress Note ---
Date of Service April 06, 2019 Assessment & Plan (1) Bilateral pulmonary embolism: admitted with severe Dyspnea on exertion with hypoxia CT chest shows extensive bilateral PE , left lower extremity DVT ECHO : evidence of right heart strain pt had recent robotic prostatectomy on 03/24/19 for Prostate ca was not a candidate for tPA pt reports of having significant pain due to kent catheter on discharged which limited his movement stayed on recliner > 8 hrs day for the past 2 weeks possible provoked DVT due to immobility post op leading to PE IV heparin wt based protocol given the extent of PE pt will need life long anticoagulation on IV heparin wt based protocol will cont IV heparin for next 24 hr /if clinically improved (less hypoxia , SOB ) plan to transition to NOAC /Eliquis 10 mg BID - then follow up w/ hematology Dr. Cruz, as outpt pt will likely need life long anticoagulation (2) S/P prostatectomy: hx or prostate CA s/p Robotic prostatectomy done on 03/24/[address] Alarcon advanced Prostate CA with lymph node spread Urology consulted appreciate input /kent catheter removed , voiding trial per Urology - pt is currently having episodes of incontinence, per urology patient should follow-up with Dr. Alarcon on April 26, 2019 Code status: FULL CODE DVT PROPHYLAXIS : on IV heparin wt based protocol DISPOSITION: expected to be discharged home when medically stable will need 2 step exercise prior to discharge to assess home O2 needs Subjective No acute events overnight, pt is sitting in chair in no acute distress. Denies any chest pain, palpitations, increased shortness of breath. Says that he feels much better than on admission. States that before he would have difficulty to even stand up and any ambulation would be very difficult. He is currently on supplemental oxygen, using about 5 L/min. Denies any fevers, chills, abdominal pain, nausea, vomiting. Says he has good p.o. intake. However he is incontinent since the Kent catheter was removed Continues on heparin gtt. Review of Systems Review of Systems: All systems reviewed & are unremarkable except as noted in HPI & below Constitutional: no fever and no chills Respiratory: + dyspnea; no cough and no chest congestion Cardiovascular: no chest pain and no palpitations Gastrointestinal: no abdominal pain, no nausea and no vomiting Genitourinary: + urinary incontinence Physical Exam Physical Exam: Constitutional: Obese male pt sitting up in the chair, in no acute distress, using suppl. O2 Eyes: PERRL, EOMI, conjunctivae normal, anicteric sclerae ENMT: external ear and nose normal, oropharynx normal Neck: trachea midline, no thyromegaly Respiratory: no respiratory distress and no cough Auscultation: CTAB, no wheezing, rhonchi, crackles Cardiovascular: RRR, no murmur, no edema Musculoskeletal: no cyanosis or clubbing, extremities motor strength 5/5 Skin: no rashes, warm and dry Neurologic: PERRL, EOMI, accommodation nl, no face palsy, no dysarthria, moves all 4 extremities spontaneously Psychiatric: A+Ox3, euthymic affect Results & Data Vital Signs (Past 12 Hours) Vital Signs Temp Pulse Pulse Resp BP Pulse Ox 04/06/19 07:11 73 04/06/19 03:44 36.4 C L 68 20 126/71 97 04/05/19 23:50 36.8 C 75 20 121/77 96 Laboratory Results 04/06/19 04/06/19 04/06/19 Range/Units 05:32 05:32 05:32 WBC 8.43 (4.8-10.8) K/uL RBC 4.27 L (4.7-6.1) M/uL Hgb 13.4 L (14.0-18.0) g/dL Hct 38.9 L (42-52) % MCV 91.1 (80-100) fL MCH 31.4 (25-34) pg MCHC 34.4 (32-36) g/dL RDW Std Deviation 44.2 (36.4-46.3) fL RDW Coeff of Jimmy 13.4 (11.5-14.5) % Plt Count 242 (130-400) K/uL MPV 9.6 (7.4-10.4) fL Immature Gran % (Auto) 0.4 % Neut % (Auto) 68.2 % Lymph % (Auto) 16.7 % [place] % (Auto) 11.6 % Eos % (Auto) 2.3 % Baso % (Auto) 0.8 % Immature Gran # (Auto) 0.03 H (0.00-0.02) K/uL Neut # (Auto) 5.75 (1.4-6.5) K/uL Lymph # (Auto) 1.41 (1.2-3.4) K/uL [place] # (Auto) 0.98 H (0.11-0.59) K/uL Eos # (Auto) 0.19 (0-0.5) K/uL Baso # (Auto) 0.07 (0-0.2) K/uL APTT 49.3 H* (21.0-31.0) Seconds PTT Ratio 1.8 Sodium 136 (136-145) mmol/L Potassium 3.7 (3.5-5.1) mmol/L Chloride 106 (98-107) mmol/L Carbon Dioxide 26 (21-32) mmol/L Anion Gap 4.0 (3-11) BUN 19 H (7-18) mg/dl Creatinine 1.11 (0.6-1.4) mg/dl Est Cr Clr Drug Dosing 113.8 ml/min Est GFR ( Amer) 85.6 Est GFR (Non-Af Amer) 73.8 BUN/Creatinine Ratio 17.0 (10-20) Glucose 97 (70-99) mg/dl Calcium 8.6 (8.5-10.1) mg/dl Magnesium 2.1 (1.8-2.4) mg/dl 04/05/ Range/Units 11:15 WBC (4.8-10.8) K/uL RBC (4.7-6.1) M/uL Hgb (14.0-18.0) g/dL Hct (42-52) % MCV (80-100) fL MCH (25-34) pg MCHC (32-36) g/dL RDW Std Deviation (36.4-46.3) fL RDW Coeff of Jimmy (11.5-14.5) % Plt Count (130-400) K/uL MPV (7.4-10.4) fL Immature Gran % (Auto) % Neut % (Auto) % Lymph % (Auto) % [place] % (Auto) % Eos % (Auto) % Baso % (Auto) % Immature Gran # (Auto) (0.00-0.02) K/uL Neut # (Auto) (1.4-6.5) K/uL Lymph # (Auto) (1.2-3.4) K/uL [place] # (Auto) (0.11-0.59) K/uL Eos # (Auto) (0-0.5) K/uL Baso # (Auto) (0-0.2) K/uL APTT 57.7 H* (21.0-31.0) Seconds PTT Ratio 2.1 Sodium (136-145) mmol/L Potassium (3.5-5.1) mmol/L Chloride (98-107) mmol/L Carbon Dioxide (21-32) mmol/L Anion Gap (3-11) BUN (7-18) mg/dl Creatinine (0.6-1.4) mg/dl Est Cr Clr Drug Dosing ml/min Est GFR ( Amer) Est GFR (Non-Af Amer) BUN/Creatinine Ratio (10-20) Glucose (70-99) mg/dl Calcium (8.5-10.1) mg/dl Magnesium (1.8-2.4) mg/dl Medications Administered Current Inpatient Medications Amlodipine Besylate (Norvasc) 5 mg PO QAM [facility] Stop: 05/04/19 08:59 Last Admin: 04/05/19 08:30 Dose: 5 mg Documented by: Docusate Sodium (Colace) 100 mg PO BID [facility] Stop: 05/04/19 08:59 Last Admin: 04/05/19 21:12 Dose: 100 mg Documented by: Lisinopril/HCTZ (Prinzide 20/12.5mg) 1 tab PO QPM [facility] Stop: 05/04/19 20:59 Last Admin: 04/05/19 21:12 Dose: 1 tab Documented by: Heparin Sodium/Dextrose (Heparin Sodium/Dextrose) 25,000 units in 500 mls @ 55 mls/hr IV .Q9H6M [facility]; Protocol Stop: 05/03/19 18:59 Last Admin: 04/06/19 07:02 Dose: 2,750 units/hr, 55 mls/hr Documented by: Levalbuterol HCl (Xopenex 1.25mg/3ml Neb) 1.25 mg NEB Q4H PRN PRN Reason: Shortness Of Breath Or Wheezing Stop: 05/03/19 22:35 Oxybutynin Chloride (Ditropan) 5 mg PO BID PRN PRN Reason: bladder spasms Stop: 05/03/19 22:35 Last Admin: 04/05/19 04:42 Dose: 5 mg Documented by: Oxycodone HCl (Roxicodone Immediate Rel) 10 mg PO Q6H PRN PRN Reason: Severe Pain (7,8,9,10) Stop: 04/18/19 10:17 Last Admin: 04/05/19 01:09 Dose: 10 mg Documented by: Oxycodone HCl (Roxicodone Immediate Rel) 5 mg PO Q6H PRN PRN Reason: Moderate Pain (4,5,6) Stop: 04/18/19 10:17 Last Admin: 04/04/19 18:11 Dose: 5 mg Documented by: Tamsulosin HCl (Flomax) 0.4 mg PO DAILY [facility] Stop: 05/04/19 08:59 Last Admin: 04/05/19 08:30 Dose: 0.4 mg Documented by:
[2019-04-06] MEDS: AMLODIPINE BESYLATE 5 MG TAB PO SCH (08:34)
[2019-04-06] MEDS: TAMSULOSIN HCL 0.4 MG CAP PO SCH (08:35)
[2019-04-06] MEDS: DOCUSATE SODIUM 100 MG CAP PO SCH ×2 (08:35→20:09)
--- NOTE | 2019-04-06 09:53 | Urology Progress Note ---
Date of Service April 06, 2019 Assessment & Plan (1) S/P prostatectomy: 58-year-old male postoperative day #13 status post robotic prostatectomy and bilateral pelvic lymph node dissection complicated by bilateral DVT and pulmonary embolus with shortness of breath. Passed TOV yesterday, now with poor bladder control. We discussed expectations s/p surgery with incontinence management and he is understanding. He also understands hematuria is not unexpected. Will allow medicine to manage anticoagulation s/p DVT, appreciate all recommendations. Thank you for allowing us to participate in the acute care of Mr. Morton. Please reconsult us with additional questions, concerns or changes in patient status. We will keep outpatient followup as scheduled for April [address] Alarcon. Subjective Pt sitting in chair at side of bed this AM. States he feels better with catheter removed, however now experiencing constant incontinence requiring him to wear depends. Denies continued bladder pain or spasms. Denies n/v/f/c. Continues on NC, working to wean down. Continues on heparin gtt. Review of Systems Review of Systems: All systems reviewed & are unremarkable except as noted in HPI & below Physical Exam Physical Exam: A&Ox3 RRR abd soft BLE edema Results & Data Vital Signs (Past 12 Hours) Vital Signs Temp Pulse Pulse Pulse Resp BP Pulse Ox 04/06/19 08:13 36.5 C 69 18 131/79 93 04/06/19 07:11 73 04/06/19 03:44 36.4 C L 68 20 126/71 97 04/05/19 23:50 36.8 C 75 20 121/77 96 PG Care Time/CCT Total # of Minutes Spent Total Time Spent with Patient: Total time spent is greater than 50% in coordination of care (as documented) at patient's floor/unit and/or counseling patient:
[2019-04-06] MEDS: LISINOPRIL/HCTZ 20/12.5MG 1 TAB TAB PO SCH (20:09)
[2019-04-07] MEDS: HEPARIN SODIUM/DEXTROSE 25,000 UNITS/500 ML BAG IV SCH (01:18)
[2019-04-07 05:54] LABS: Hematocrit (blood only) 39.7 % (42-52); Hemoglobin 13.2 g/dL (14.0-18.0); Mean Corpuscular Hemoglobin 30.8 pg (25-34); Mean Corpuscular Hgb Conc 33.2 g/dL (32-36); Mean Corpuscular Volume 92.8 fL (80-100); Mean Platelet Volume 9.5 fL (7.4-10.4); Platelet Count 268 K/uL (130-400); RDW Coefficient of Variation 13.4 % (11.5-14.5); RDW Standard Deviation 45.2 fL (36.4-46.3); Red Blood Count 4.28 M/uL (4.7-6.1); White Blood Count 8.59 K/uL (4.8-10.8)
[2019-04-07 06:14] LABS: Partial Thromboplastin Ratio 1.9
[2019-04-07 06:18] LABS: Partial Thromboplastin Time 51.2 Seconds (21.0-31.0)
[2019-04-07 06:23] LABS: BUN Creatinine Ratio 16.3 (10-20); Calcium 8.8 mg/dl (8.5-10.1); Creatinine Clr Calc Pharmacy 130.2 ml/min; Est GFR (African American) 100.7; Est GFR (Non-African American) 86.9; Potassium 3.9 mmol/L (3.5-5.1)
[2019-04-07] MEDS ORDERED: HEPARIN DRIP: STOP ORDER ONE (08:00)
[2019-04-07] MEDS: TAMSULOSIN HCL 0.4 MG CAP PO SCH (08:20)
[2019-04-07] MEDS: AMLODIPINE BESYLATE 5 MG TAB PO SCH (08:20)
[2019-04-07] MEDS: DOCUSATE SODIUM 100 MG CAP PO SCH ×2 (08:20→20:09)
--- NOTE | 2019-04-07 08:25 | Hospitalist Progress Note ---
Date of Service April 07, 2019 Assessment & Plan (1) Bilateral pulmonary embolism: Admitted with severe Dyspnea on exertion with hypoxia CT chest shows extensive bilateral PE , left lower extremity DVT ECHO : evidence of right heart strain pt had recent robotic prostatectomy on 03/24/19 for Prostate ca was not a candidate for tPA pt reports of having significant pain due to kent catheter on discharged which limited his movement stayed on recliner > 8 hrs day for the past 2 weeks (prior to admission) possible provoked DVT due to immobility post op leading to PE IV heparin wt based protocol given the extent of PE pt will need life long anticoagulation on IV heparin wt based protocol, IV heparin stopped -2 step study today,04/07/2019 -passed the study, does not need any supplemental oxygen (even though he was still using 5 L/min this morning) -We will start Lovenox, 1 mg/kg twice daily, will start Coumadin tomorrow -will need anticoagulation clinic set up -plan to follow up w/ hematology Dr. Cruz, as outpt - pt will likely need life long anticoagulation (2) S/P prostatectomy: hx or prostate CA s/p Robotic prostatectomy done on 03/24/[address] Alarcon -Likely patient will need radiation, and other /hormonal treatment Urology consulted appreciate input, kent catheter removed - pt is currently having episodes of incontinence, per urology patient should follow-up with Dr. Alarcon on April 26, 2019 Code status: FULL CODE DVT PROPHYLAXIS : stopped IV heparin, currently on lovenox for bridging DISPOSITION: expected to be discharged home when medically stable Subjective No acute events overnight. Patient is sitting up in the chair, in no acute distress. This morning still required 5 L/min of supplemental oxygen, 2 step study was done and resulted actually in no need for supplemental oxygen. Currently patient is breathing on room air, comfortable. He also denies any chest pain, palpitation, increased shortness of breath, abdominal pain, nausea or vomiting. Still has some urinary incontinence. Tells me he was able to ambulate in the hallway today. I discussed his clinical progress with his Janett Zambrano yesterday over the phone. Sim Ash also discussed any possible needs with patient and his , and provided him with Coumadin brochure. Review of Systems Review of Systems: All systems reviewed & are unremarkable except as noted in HPI & below Constitutional: no fever and no chills Respiratory: + dyspnea; no cough and no chest congestion Cardiovascular: + dyspnea on exertion; no chest pain and no palpitations Gastrointestinal: no abdominal pain, no nausea and no vomiting Genitourinary: + urinary incontinence Physical Exam Physical Exam: Constitutional: Obese male pt sitting up in the chair, in no acute distress, breathing comfortably on room air Eyes: PERRL, EOMI, conjunctivae normal, anicteric sclerae ENMT: external ear and nose normal, oropharynx normal Neck: trachea midline, no thyromegaly Respiratory: no respiratory distress and no cough Auscultation: CTAB, no wheezing, rhonchi, crackles Cardiovascular: RRR, no murmur, no edema Musculoskeletal: no cyanosis or clubbing, extremities motor strength 5/5, moves all 4 extremities spontaneously Skin: no rashes, warm and dry Neurologic: PERRL, EOMI, accommodation nl, no face palsy, no dysarthria, moves all 4 extremities spontaneously Psychiatric: A+Ox3, euthymic affect Results & Data Vital Signs (Past 12 Hours) Vital Signs Temp Pulse Resp BP Pulse Ox Pulse Ox 04/07/19 07:41 37.1 C 66 18 135/81 96 04/07/19 04:03 37.0 C 67 22 133/80 97 04/06/19 23:54 37.0 C 85 20 150/81 H 95 04/06/19 22:27 92 Laboratory Results 04/07/19 04/07/19 04/07/19 Range/Units 05:21 05:21 05:21 WBC 8.59 (4.8-10.8) K/uL RBC 4.28 L (4.7-6.1) M/uL Hgb 13.2 L (14.0-18.0) g/dL Hct 39.7 L (42-52) % MCV 92.8 (80-100) fL MCH 30.8 (25-34) pg MCHC 33.2 (32-36) g/dL RDW Std Deviation 45.2 (36.4-46.3) fL RDW Coeff of Jimmy 13.4 (11.5-14.5) % Plt Count 268 (130-400) K/uL MPV 9.5 (7.4-10.4) fL APTT 51.2 H* (21.0-31.0) Seconds PTT Ratio 1.9 Sodium 138 (136-145) mmol/L Potassium 3.9 (3.5-5.1) mmol/L Chloride 108 H (98-107) mmol/L Carbon Dioxide 26 (21-32) mmol/L Anion Gap 4.0 (3-11) BUN 16 (7-18) mg/dl Creatinine 0.97 (0.6-1.4) mg/dl Est Cr Clr Drug Dosing 130.2 ml/min Est GFR ( Amer) 100.7 Est GFR (Non-Af Amer) 86.9 BUN/Creatinine Ratio 16.3 (10-20) Glucose 102 H (70-99) mg/dl Calcium 8.8 (8.5-10.1) mg/dl Medications Administered Current Inpatient Medications Amlodipine Besylate (Norvasc) 5 mg PO QAM [facility] Stop: 05/04/19 08:59 Last Admin: 04/06/19 08:34 Dose: 5 mg Documented by: Apixaban (Eliquis) 10 mg PO BID [facility] Stop: 04/13/19 21:01 Apixaban (Eliquis) 5 mg PO BID [facility] Stop: 05/14/19 08:59 Docusate Sodium (Colace) 100 mg PO BID [facility] Stop: 05/04/19 08:59 Last Admin: 04/06/19 20:09 Dose: 100 mg Documented by: Lisinopril/HCTZ (Prinzide 20/12.5mg) 1 tab PO QPM [facility] Stop: 05/04/19 20:59 Last Admin: 04/06/19 20:09 Dose: 1 tab Documented by: Levalbuterol HCl (Xopenex 1.25mg/3ml Neb) 1.25 mg NEB Q4H PRN PRN Reason: Shortness Of Breath Or Wheezing Stop: 05/03/19 22:35 Oxybutynin Chloride (Ditropan) 5 mg PO BID PRN PRN Reason: bladder spasms Stop: 05/03/19 22:35 Last Admin: 04/05/19 04:42 Dose: 5 mg Documented by: Oxycodone HCl (Roxicodone Immediate Rel) 10 mg PO Q6H PRN PRN Reason: Severe Pain (7,8,9,10) Stop: 04/18/19 10:17 Last Admin: 04/05/19 01:09 Dose: 10 mg Documented by: Oxycodone HCl (Roxicodone Immediate Rel) 5 mg PO Q6H PRN PRN Reason: Moderate Pain (4,5,6) Stop: 04/18/19 10:17 Last Admin: 04/04/19 18:11 Dose: 5 mg Documented by: Tamsulosin HCl (Flomax) 0.4 mg PO DAILY [facility] Stop: 05/04/19 08:59 Last Admin: 04/06/19 08:35 Dose: 0.4 mg Documented by:
[2019-04-07] MEDS ORDERED: APIXABAN 5 MG TABLET PO SCH (09:00)
--- NOTE | 2019-04-07 14:51 | Urology Progress Note ---
Date of Service April 07, 2019 Assessment & Plan (1) Prostate cancer: A/P 58-year-old male postoperative day #14 status post robotic prostatectomy, bilateral pelvic lymph node dissection complicated by postoperative bilateral DVT and pulmonary emboli. Pathology report and expected postoperative clinical course is reviewed. Patient vocalizes understanding that his incontinence will take some time to resolve. The importance of postoperative ambulation and activity is reemphasized. Outpatient appointments are in place with our service; we will see as planned for discussion of his pathology and plan for occasion of a debbie PSA. Adjuvant therapy, likely adjuvant XRT is likely to be required as previously suspected. Patient vocalizes good understanding of the treatment plan. Thank you for allowing us to participate in this patient's care. Please contact our service with any questions or concerns. Subjective 58-year-old male postoperative day #14 status post robotic prostatectomy and bilateral pelvic lymph node dissection readmitted due to bilateral DVTs and pulmonary emboli. His shortness of breath is been improving and he is being transitioned to Coumadin per his report. Schwartz catheter was removed as previously scheduled with improving urinary incontinence, expected postop prostatectomy. Patient reports that his activity level is much improved and he is ambulating in the hallways. He denies incisional pain or other significant bother at this time save related to his ongoing medical events. Review of Systems Constitutional: no fever and no chills Eyes: no diplopia Ear, Nose, Mouth, Throat: no ear trauma Respiratory: no hemoptysis Cardiovascular: + dyspnea (Improved) Gastrointestinal: + abdominal pain; no vomiting Integumentary: no acne and no boil Neurologic: no paralysis Psychiatric: no hopelessness Allergy / Immunological: no tongue swelling Physical Exam Constitutional: + morbidly obese; no acute distress Eyes: eyes not dysmorphic ENMT: Ears: no external ear abnormality Neck: trachea midline; no anterior neck swelling Respiratory: no respiratory distress and does not use accessory muscles Cardiovascular: Vessels: radial pulses present Gastrointestinal (Abdomen): Inspection/Auscultation: + abdomen distended (Obese) Percussion/Palpation: abdomen soft; abdomen nontender Incisions clean dry and intact with Dermabond Musculoskeletal: Head/Neck/Chest: normocephalic and neck supple Skin: normal turgor Neurologic: awake; not obtunded Psychiatric: Orientation: oriented x 3 Lymphatic: no lymphadenopathy Results & Data Vital Signs (Past 12 Hours) Vital Signs Temp Pulse Pulse Pulse Pulse Resp Resp 04/07/19 12:00 36.4 C L 72 18 04/07/19 10:05 90 84 82 20 04/07/19 07:41 37.1 C 66 18 04/07/19 04:03 37.0 C 67 22 Resp Resp BP Pulse Ox Pulse Ox Pulse Ox Pulse Ox 04/07/19 12:00 125/77 92 04/07/19 10:05 20 18 92 94 95 04/07/19 07:41 135/81 96 04/07/19 04:03 133/80 97 Laboratory Results Laboratory Results - last 48 hr 04/06/19 04/06/19 04/06/19 05:32 05:32 05:32 WBC 8.43 RBC 4.27 L Hgb 13.4 L Hct 38.9 L MCV 91.1 MCH 31.4 MCHC 34.4 RDW Std Deviation 44.2 RDW Coeff of Jimmy 13.4 Plt Count 242 MPV 9.6 Immature Gran % (Auto) 0.4 Neut % (Auto) 68.2 Lymph % (Auto) 16.7 [place] % (Auto) 11.6 Eos % (Auto) 2.3 Baso % (Auto) 0.8 Immature Gran # (Auto) 0.03 H Neut # (Auto) 5.75 Lymph # (Auto) 1.41 [place] # (Auto) 0.98 H Eos # (Auto) 0.19 Baso # (Auto) 0.07 APTT 49.3 H* PTT Ratio 1.8 Sodium 136 Potassium 3.7 Chloride 106 Carbon Dioxide 26 Anion Gap 4.0 BUN 19 H Creatinine 1.11 Est Cr Clr Drug Dosing 113.8 Est GFR ( Amer) 85.6 Est GFR (Non-Af Amer) 73.8 BUN/Creatinine Ratio 17.0 Glucose 97 Calcium 8.6 Magnesium 2.1 04/07/19 04/07/19 04/07/19 05:21 05:21 05:21 WBC 8.59 RBC 4.28 L Hgb 13.2 L Hct 39.7 L MCV 92.8 MCH 30.8 MCHC 33.2 RDW Std Deviation 45.2 RDW Coeff of Jimmy 13.4 Plt Count 268 MPV 9.5 Immature Gran % (Auto) Neut % (Auto) Lymph % (Auto) [place] % (Auto) Eos % (Auto) Baso % (Auto) Immature Gran # (Auto) Neut # (Auto) Lymph # (Auto) [place] # (Auto) Eos # (Auto) Baso # (Auto) APTT 51.2 H* PTT Ratio 1.9 Sodium 138 Potassium 3.9 Chloride 108 H Carbon Dioxide 26 Anion Gap 4.0 BUN 16 Creatinine 0.97 Est Cr Clr Drug Dosing 130.2 Est GFR ( Amer) 100.7 Est GFR (Non-Af Amer) 86.9 BUN/Creatinine Ratio 16.3 Glucose 102 H Calcium 8.8 Magnesium PG Care Time/CCT Total # of Minutes Spent Total Time Spent with Patient: Total time spent is greater than 50% in coordination of care (as documented) at patient's floor/unit and/or counseling patient:
[2019-04-07] MEDS: ENOXAPARIN 150 MG/ML SYR SQ SCH (20:08)
[2019-04-07] MEDS: LISINOPRIL/HCTZ 20/12.5MG 1 TAB TAB PO SCH (20:09)
[2019-04-07] MEDS ORDERED: ENOXAPARIN 1 MG/KG SQ SCH (20:15)
[2019-04-08 06:01] LABS: INR 1.1 (0.9-1.1); Prothrombin Time 11.4 Seconds (9.0-12.0)
[2019-04-08] MEDS: AMLODIPINE BESYLATE 5 MG TAB PO SCH (07:58)
[2019-04-08] MEDS: TAMSULOSIN HCL 0.4 MG CAP PO SCH (07:59)
[2019-04-08] MEDS: ENOXAPARIN 150 MG/ML SYR SQ SCH ×2 (07:59→19:22)
[2019-04-08] MEDS: DOCUSATE SODIUM 100 MG CAP PO SCH ×2 (07:59→19:21)
--- NOTE | 2019-04-08 08:54 | Hospitalist Progress Note ---
Date of Service April 08, 2019 Assessment & Plan (1) Bilateral pulmonary embolism: Admitted with severe Dyspnea on exertion with hypoxia CT chest shows extensive bilateral PE , left lower extremity DVT ECHO : evidence of right heart strain pt had recent robotic prostatectomy on 03/24/19 for Prostate ca was not a candidate for tPA pt reports of having significant pain due to kent catheter on discharged which limited his movement stayed on recliner > 8 hrs day for the past 2 weeks (prior to admission) possible provoked DVT due to immobility post op leading to PE IV heparin wt based protocol (stopped, pt is currently on lovenox bridge, starting coumadin today 04/08) given the extent of PE pt will likely need life long anticoagulation -2 step study yesterday 04/07/2019 -passed the study, does not need any supplemental oxygen (even though he was still using 5 L/min in the morning of 04/07) -started Lovenox, 1 mg/kg twice daily, will start Coumadin today 04/08 -will need anticoagulation clinic set up -plan to follow up w/ PCP on Wednesday 04/11 (will need a script for INR) and hematology Dr. Cruz, as outpt -pt will likely need life long anticoagulation (2) S/P prostatectomy: hx or prostate CA s/p Robotic prostatectomy done on 03/24/[address] Alarcon -Likely patient will need radiation, and other /hormonal treatment Urology consulted appreciate input, kent catheter removed - pt is currently having episodes of incontinence, per urology patient should follow-up with Dr. Alarcon on April 26, 2019 Code status: FULL CODE DVT PROPHYLAXIS : stopped IV heparin, currently on lovenox for bridging DISPOSITION: expected to be discharged home when medically stable, likely tomorrow Subjective No acute events overnight. Patient is sitting up in the chair, in no acute distress. Yesterday morning still required 5 L/min of supplemental oxygen, 2 step study was done and resulted actually in no need for supplemental oxygen. Currently patient is breathing on room air, comfortable. He also denies any chest pain, palpitation, increased shortness of breath, abdom inal pain, nausea or vomiting. Still has some urinary incontinence. Able to ambulate to the bathroom, hallway and sit in a chair, currently lying in bed and sleepy. Provided teaching of Lovenox injections, also provided with Coumadin brochure. Says that now he feels quite comfortable with Lovenox injections. Review of Systems Review of Systems: All systems reviewed & are unremarkable except as noted in HPI & below Constitutional: + fatigue; no fever and no chills Respiratory: + dyspnea; no cough and no chest congestion Cardiovascular: + dyspnea on exertion; no chest pain and no palpitations Gastrointestinal: no abdominal pain, no nausea and no vomiting Genitourinary: + urinary incontinence Physical Exam Physical Exam: Constitutional: Obese male pt sitting up in the chair, in no acute distress, breathing comfortably on room air Eyes: PERRL, EOMI, conjunctivae normal, anicteric sclerae ENMT: external ear and nose normal, oropharynx normal Neck: trachea midline, no thyromegaly Respiratory: no respiratory distress and no cough Auscultation: CTAB, no wheezing, rhonchi, crackles Cardiovascular: RRR, no murmur, no edema Musculoskeletal: no cyanosis or clubbing, extremities motor strength 5/5, moves all 4 extremities spontaneously, mild LE edema L>R (improved) Skin: no rashes, warm and dry Neurologic: PERRL, EOMI, accommodation nl, no face palsy, no dysarthria, moves all 4 extremities spontaneously Psychiatric: A+Ox3, euthymic affect Results & Data Vital Signs (Past 12 Hours) Vital Signs Temp Pulse Resp BP Pulse Ox 04/08/19 07:30 36.9 C 71 20 141/96 H 98 04/08/19 03:58 37.0 C 74 20 142/82 H 95 04/07/19 23:29 37.2 C 78 19 160/97 H 94 Laboratory Results 04/08/19 04/08/19 04/08/19 Range/Units 05:43 05:43 05:42 WBC 8.25 (4.8-10.8) K/uL RBC 4.35 L (4.7-6.1) M/uL Hgb 13.5 L (14.0-18.0) g/dL Hct 40.3 L (42-52) % MCV 92.6 (80-100) fL MCH 31.0 (25-34) pg MCHC 33.5 (32-36) g/dL RDW Std Deviation 45.5 (36.4-46.3) fL RDW Coeff of Jimmy 13.4 (11.5-14.5) % Plt Count 304 (130-400) K/uL MPV 9.4 (7.4-10.4) fL PT 11.4 (9.0-12.0) Seconds INR 1.1 (0.9-1.1) Sodium 137 (136-145) mmol/L Potassium 4.2 (3.5-5.1) mmol/L Chloride 109 H (98-107) mmol/L Carbon Dioxide 26 (21-32) mmol/L Anion Gap 2.0 L (3-11) BUN 14 (7-18) mg/dl Creatinine 1.03 (0.6-1.4) mg/dl Est Cr Clr Drug Dosing 123.4 ml/min Est GFR ( Amer) 93.7 Est GFR (Non-Af Amer) 80.8 BUN/Creatinine Ratio 13.4 (10-20) Glucose 92 (70-99) mg/dl Calcium 8.9 (8.5-10.1) mg/dl 04/08/19 Range/Units 05:42 PT 11.4 (9.0-12.0) Seconds INR 1.1 (0.9-1.1) Medications Administered Current Inpatient Medications Amlodipine Besylate (Norvasc) 5 mg PO QAM [facility] Stop: 05/04/19 08:59 Last Admin: 04/08/19 07:58 Dose: 5 mg Documented by: Docusate Sodium (Colace) 100 mg PO BID [facility] Stop: 05/04/19 08:59 Last Admin: 04/08/19 07:59 Dose: 100 mg Documented by: Enoxaparin Sodium (Lovenox) 141 mg SQ Q12 [facility] Stop: 05/07/19 20:59 Last Admin: 04/08/19 07:59 Dose: 141 mg Documented by: Lisinopril/HCTZ (Prinzide 20/12.5mg) 1 tab PO QPM [facility] Stop: 05/04/19 20:59 Last Admin: 04/07/19 20:09 Dose: 1 tab Documented by: Levalbuterol HCl (Xopenex 1.25mg/3ml Neb) 1.25 mg NEB Q4H PRN PRN Reason: Shortness Of Breath Or Wheezing Stop: 05/03/19 22:35 Oxybutynin Chloride (Ditropan) 5 mg PO BID PRN PRN Reason: bladder spasms Stop: 05/03/19 22:35 Last Admin: 04/05/19 04:42 Dose: 5 mg Documented by: Oxycodone HCl (Roxicodone Immediate Rel) 10 mg PO Q6H PRN PRN Reason: Severe Pain (7,8,9,10) Stop: 04/18/19 10:17 Last Admin: 04/05/19 01:09 Dose: 10 mg Documented by: Oxycodone HCl (Roxicodone Immediate Rel) 5 mg PO Q6H PRN PRN Reason: Moderate Pain (4,5,6) Stop: 04/18/19 10:17 Last Admin: 04/04/19 18:11 Dose: 5 mg Documented by: Tamsulosin HCl (Flomax) 0.4 mg PO DAILY [facility] Stop: 05/04/19 08:59 Last Admin: 04/08/19 07:59 Dose: 0.4 mg Documented by: Warfarin Sodium (Coumadin) 5 mg PO DAILY@1600 [facility] Stop: 05/08/19 15:59 Warfarin Sodium (Coumadin) 2 mg PO DAILY@1600 [facility] Stop: 05/08/19 15:59
[2019-04-08 09:24] LABS: Hematocrit (blood only) 40.3 % (42-52); Hemoglobin 13.5 g/dL (14.0-18.0); Mean Corpuscular Hgb Conc 33.5 g/dL (32-36); Mean Corpuscular Volume 92.6 fL (80-100); Mean Platelet Volume 9.4 fL (7.4-10.4); Platelet Count 304 K/uL (130-400); RDW Coefficient of Variation 13.4 % (11.5-14.5); RDW Standard Deviation 45.5 fL (36.4-46.3); Red Blood Count 4.35 M/uL (4.7-6.1); White Blood Count 8.25 K/uL (4.8-10.8)
[2019-04-08 09:49] LABS: BUN Creatinine Ratio 13.4 (10-20); Calcium 8.9 mg/dl (8.5-10.1); Creatinine Clr Calc Pharmacy 123.4 ml/min; Est GFR (African American) 93.7; Est GFR (Non-African American) 80.8; Potassium 4.2 mmol/L (3.5-5.1)
[2019-04-08] MEDS ORDERED: WARFARIN SOD 5 MG TAB PO SCH (16:00)
[2019-04-08] MEDS: WARFARIN SOD 2 MG TAB PO SCH (16:57)
[2019-04-08] MEDS: WARFARIN SOD 5 MG TAB PO SCH (16:57)
[2019-04-08] MEDS: LISINOPRIL/HCTZ 20/12.5MG 1 TAB TAB PO SCH (19:22)
[2019-04-09] MEDS: DOCUSATE SODIUM 100 MG CAP PO SCH (07:54)
[2019-04-09] MEDS: AMLODIPINE BESYLATE 5 MG TAB PO SCH (07:54)
[2019-04-09] MEDS: ENOXAPARIN 150 MG/ML SYR SQ SCH (07:55)
[2019-04-09] MEDS: TAMSULOSIN HCL 0.4 MG CAP PO SCH (07:55)
[2019-04-09 08:00] LABS: Hematocrit (blood only) 39.9 % (42-52); Hemoglobin 13.5 g/dL (14.0-18.0); Mean Corpuscular Hemoglobin 31.3 pg (25-34); Mean Corpuscular Hgb Conc 33.8 g/dL (32-36); Mean Corpuscular Volume 92.4 fL (80-100); Platelet Count 303 K/uL (130-400); RDW Coefficient of Variation 13.3 % (11.5-14.5); RDW Standard Deviation 44.5 fL (36.4-46.3); Red Blood Count 4.32 M/uL (4.7-6.1); White Blood Count 8.98 K/uL (4.8-10.8)
[2019-04-09 08:12] LABS: INR 1.1 (0.9-1.1); Prothrombin Time 11.4 Seconds (9.0-12.0)
[2019-04-09 08:26] LABS: BUN Creatinine Ratio 15.1 (10-20); Calcium 9.2 mg/dl (8.5-10.1); Creatinine Clr Calc Pharmacy 134.4 ml/min; Est GFR (African American) 104.6; Est GFR (Non-African American) 90.3; Magnesium 1.8 mg/dl (1.8-2.4)
--- NOTE | 2019-04-09 15:00 | Discharge Summary ---
Date of Service April 09, 2019 Admission HPI Per Admitting Provider A 58-year-old male with past medical history significant for hypertension, obesity, prostate cancer, had a robotic prostatectomy done on March 24 comes with shortness of breath and found to have extensive pulmonary embolism with right heart strain. The patient says since last 2-3 days, he is getting short of breath, even getting up is making short of breath, but denies any chest pain. That is the reason he came to the ER. The patient says he is also not eating much because he is having difficulty swallowing. His states that mostly because he was not getting from the bed because of shortness of breath. Denies any cough. No fever, no chills, no headache, no blurred visions, no earache, no runny nose, no sore throat. He is sleeping okay. No nausea, no vomiting, no abdominal pain. Normal bowel movements. No blood in the stools or black stools. He is on Kent catheter and once in a while, he noticed some slight blood in the catheter, but right now, it is clear. He has a drain placed from his surgery and it has initially drained little bit, but right now is not draining much. He is hemodynamically stable, saturating okay on room air while resting. Admission Exam Per Admitting Provider GENERAL: The patient is obese, not in acute distress. VITAL SIGNS: Temperature 36.8, pulse 100, respiratory rate 23, blood pressure 123/95, oxygen 92% on room air. HEENT: No pallor, no icterus. Pupils equal, round, and reactive to light. NECK: No JVD, no neck masses, no carotid bruits. CARDIOVASCULAR: S1, S2 heard, regular rate and rhythm, no murmur, no gallop. RESPIRATORY SYSTEM: Normal AP diameter. No accessory muscle use. No wheezing, no crackles. ABDOMEN: Soft. Recent surgical sites, no drainage seen, drained significant amount of blood. No distention. CENTRAL NERVOUS SYSTEM: Alert and awake and oriented. Moves extremities. Obeys commands. Nonfocal. EXTREMITIES: No edema, no erythema. Principal Diagnosis Left lower extremity DVT, bilateral PE Discharge Exam Constitutional: Obese male pt sitting up in the chair, in no acute distress, breathing comfortably on room air Eyes: PERRL, EOMI, conjunctivae normal, anicteric sclerae ENMT: external ear and nose normal, oropharynx normal Neck: trachea midline, no thyromegaly Respiratory: no respiratory distress and no cough Auscultation: CTAB, no wheezing, rhonchi, crackles Cardiovascular: RRR, no murmur, no edema Musculoskeletal: no cyanosis or clubbing, extremities motor strength 5/5, moves all 4 extremities spontaneously, mild LE edema L>R (improved) Skin: no rashes, warm and dry Neurologic: PERRL, EOMI, accommodation nl, no face palsy, no dysarthria, moves all 4 extremities spontaneously Psychiatric: A+Ox3, euthymic affect Discharge Data Allergies Allergy/AdvReac Type Severity Reaction Status Date / Time NSAIDS (Non-Steroidal Allergy Unknown SEE NOTES Verified 04/03/19 17:00 Anti-Inflamma BELOW Consultations 04/03/19 18:48 ED Decision to Admit Stat 04/03/19 22:36 Consult Case Management - Discharge Planning Routine Consult Hotel Desk Clerk Routine 04/04/19 09:10 Consult Urology Routine Ordered Studies 04/03/19 16:52 CT angio chest PE protocol Stat IMPRESSION: 1. Extensive acute pulmonary emboli involving the distal right and left pulmonary arteries and extending into lobar and segmental pulmonary arteries in all 5 lobes. Importantly, there is also CT evidence of right heart strain. Cor relate clinically. 2. No convincing evidence of a pulmonary infarct. 3. Trace right pleural effusion. 04/03/19 18:39 US venous doppler LE BI Stat IMPRESSION: 1. Nonocclusive acute deep venous thrombosis in the left common, superficial, and deep femoral veins. 2. No deep venous thrombosis in the right lower extremity. LABS 04/09/19 04/09/19 04/09/19 Range/Units 11:32 07:27 07:27 WBC (4.8-10.8) K/uL RBC (4.7-6.1) M/uL Hgb (14.0-18.0) g/dL Hct (42-52) % MCV (80-100) fL MCH (25-34) pg MCHC (32-36) g/dL RDW Std Deviation (36.4-46.3) fL RDW Coeff of Jimmy (11.5-14.5) % Plt Count (130-400) K/uL MPV (7.4-10.4) fL PT 11.4 (9.0-12.0) Seconds INR 1.1 (0.9-1.1) Sodium 137 (136-145) mmol/L Potassium 4.0 (3.5-5.1) mmol/L Chloride 108 H (98-107) mmol/L Carbon Dioxide 24 (21-32) mmol/L Anion Gap 6.0 (3-11) BUN 14 (7-18) mg/dl Creatinine 0.94 (0.6-1.4) mg/dl Est Cr Clr Drug Dosing 134.4 ml/min Est GFR ( Amer) 104.6 Est GFR (Non-Af Amer) 90.3 BUN/Creatinine Ratio 15.1 (10-20) Glucose 88 (70-99) mg/dl POC Glucose 82 (70-99) Calcium 9.2 (8.5-10.1) mg/dl Magnesium 1.8 (1.8-2.4) mg/dl 04/09/19 Range/Units 07:27 WBC 8.98 (4.8-10.8) K/uL RBC 4.32 L (4.7-6.1) M/uL Hgb 13.5 L (14.0-18.0) g/dL Hct 39.9 L (42-52) % MCV 92.4 (80-100) fL MCH 31.3 (25-34) pg MCHC 33.8 (32-36) g/dL RDW Std Deviation 44.5 (36.4-46.3) fL RDW Coeff of Jimmy 13.3 (11.5-14.5) % Plt Count 303 (130-400) K/uL MPV 9.0 (7.4-10.4) fL PT (9.0-12.0) Seconds INR (0.9-1.1) Sodium (136-145) mmol/L Potassium (3.5-5.1) mmol/L Chloride (98-107) mmol/L Carbon Dioxide (21-32) mmol/L Anion Gap (3-11) BUN (7-18) mg/dl Creatinine (0.6-1.4) mg/dl Est Cr Clr Drug Dosing ml/min Est GFR ( Amer) Est GFR (Non-Af Amer) BUN/Creatinine Ratio (10-20) Glucose (70-99) mg/dl POC Glucose (70-99) Calcium (8.5-10.1) mg/dl Magnesium (1.8-2.4) mg/dl Hospital Course (1) Bilateral pulmonary embolism: Admitted with severe Dyspnea on exertion with hypoxia CT chest shows extensive bilateral PE , left lower extremity DVT ECHO : evidence of right heart strain Recommend to obtain follow-up echo as outpatient pt had recent robotic prostatectomy on 03/24/19 for Prostate ca, was not a candidate for tPA pt reports of having significant pain due to kent catheter on discharge which limited his movement stayed on recliner > 8 hrs day for the past 2 weeks (prior to admission) possible provoked DVT due to immobility post op leading to PE - started on IV heparin wt based protocol (stopped, pt is currently on lovenox bridge, starting coumadin on 04/08) - given the extent of PE pt will likely need life long anticoagulation -2 step study done on 04/07/2019 -passed the study, does not need any supplemental oxygen (even though he was still using 5 L/min in the morning of 04/07) -started Lovenox, 1 mg/kg twice daily, and started Coumadin 04/08 -will need anticoagulation clinic set up -plan to follow up w/ PCP on Wednesday 04/11 (will need a script for INR) and hematology Dr. Cruz, as outpt (2) S/P prostatectomy: hx or prostate CA s/p Robotic prostatectomy done on 03/24/19 by urologist, Dr Alarcon -Likely patient will need radiation, and other /hormonal treatment Urology consulted appreciate input, kent catheter removed - pt is currently having episodes of incontinence, this should improve - per urology patient should follow-up with Dr. Alarcon on April 26, 2019 DISPOSITION: home with home health Total Time Total Time Spent Total Time Spent (In Minutes): 40 Total Time Includes: Examination of the Patient, Discharge Planning, Medication Reconciliation and Communication With Other Providers Discharge Plan Discharge Items Patient Disposition: Home - Home Health Services Reason For Visit: SOB Discharge Diagnosis: Left lower extremity DVT, bilateral PE Activity: As commented below Activity Comment: Light activity for next couple of weeks, you should ambulate min.every hour Non-emergency contact: Primary Care Provider, Oncologist and Urologist Call non-emergency contact if: you have any medication questions and your symptoms worsen Follow-up/Referrals: Will Jordan, [Primary Care Provider] - 04/11/19 1:05 pm (Coagulation clinic will call you to arrange appointment. Hematology will call you with an appointment date.) Diet: Heart Healthy Addtl Attending Provider Instructions: You were provided with Coumadin brochure, please make sure to read the information. It is crucial that your diet is consistent, especially in level of vitamin K/salads, etc. Take Coumadin 7 mg daily, starting tomorrow afternoon (04/10/2019). Take this dose until instructed otherwise, either by your primary care doctor or anticoagulation clinic. You will need to have your INR checked on April 11, the lab script was given to you on discharge. Make sure to use Lovenox injections every 12 hrs, for next 4 days, starting tonight (04/09/2019). If you need additional Lovenox injections, you will be contacted by your primary doctor or anticoagulation clinic. Make sure to follow-up with your primary care provider, on April 11, at 1:05 PM. Pending Studies at Discharge: No Stand-Alone Forms: My [facility], Smoking Cessation Medications and DC Order Prescriptions: New enoxaparin [Lovenox] 150 mg/mL Syringe 141 mg subcut Q12 4 Days Qty: 7.52 RF: 0 warfarin [Coumadin] 2 mg Tablet 2 mg PO DAILY@1600 20 Days Qty: 20 RF: 0 warfarin [Coumadin] 5 mg Tablet 5 mg PO DAILY@1600 20 Days Qty: 20 RF: 0 Continued tramadol 50 mg tablet 50 mg PO TID PRN (Reason: pain) Qty: 10 RF: 0 tamsulosin 0.4 mg capsule 0.4 mg PO DAILY RF: 0 lisinopril-hydrochlorothiazide 20-12.5 mg Tablet 1 tab PO QPM RF: 0 amlodipine 5 mg Tablet 5 mg PO QAM RF: 0 oxybutynin chloride 5 mg tablet 5 mg PO BID PRN (Reason: bladder spasms) Qty: 60 RF: 0 docusate sodium [Colace] 100 mg capsule 100 mg PO BID Qty: 60 RF: 0 Discharge Orders: Discharge Order (Routine); Ordered 04/09/19 Ordered By: Johann Krishna Admission Data Admit Date/Time: 12/15/19 21:17 Attending Provider: Johann Krishna Admit Provider: Stevie Weiner Primary Care Provider: Will Jordan Other Providers: Stevie Weiner ; Nadir Olivares ; Santhosh Alarcon I. ; Hazel Hoover
[2019-04-09] MEDS: WARFARIN SOD 5 MG TAB PO SCH (15:13)
[2019-04-09] MEDS: WARFARIN SOD 2 MG TAB PO SCH (16:10)
[2019-04-14] MEDS ORDERED: APIXABAN 5 MG TABLET PO SCH (09:00)
== END 2019-04-09 18:15 | disposition home or self-care (01) | DRG 299 ==
LOC: ED 16:32 → SUATTDRO 21:17 → 1E 21:17 → 2S 04-04 15:48

== ENCOUNTER 2024-08-22 11:26 | Inpatient (IN) ==
--- NOTE | 2024-08-22 12:08 | Emergency Department Note ---
History of Present Illness General Chief complaint: Knee Injury/Pain Stated complaint: LT KNEE INJURY Time Seen by Provider: 08/22/24 11:51 History of Present Illness Maximum Pain Intensity: 7 This is a 63-year-old male that presents to the emergency department via private vehicle with complaints of "left knee pain". The patient states that he was walking, sat down for period of time and when he stood back up he notes severe pain in the left knee developed. This occurred today. He does note that about 20 years ago he had an ACL tear but did not undergo surgery. He notes significant pain when he attempts to bear weight or move the left knee. No fevers or chills. No nausea or vomiting. No chest pain or shortness of breath. He does note history of DVT/PE currently anticoagulated and he notes last INR was 1.9 about a week ago. He denies any headache. Home Medications Medication Instructions Recorded Confirmed Type amlodipine 5 mg tablet 5 mg PO QAM 03/09/19 08/22/24 History enzalutamide 40 mg capsule (Xtandi) 160 mg PO DAILY 08/22/24 08/22/24 History lisinopril 20 1 tab PO QAM 08/22/24 08/22/24 History mg-hydrochlorothiazide 25 mg tablet warfarin 5 mg tablet See Rx Instructions .Route .COMPLEX 08/22/24 08/22/24 History Allergies Allergy/AdvReac Type Severity Reaction Status Date / Time NSAIDS (Non-Steroidal Allergy Unknown SEE NOTES Verified 08/22/24 17:23 Anti-Inflamma BELOW oxymetazoline Allergy edema of Verified 08/22/24 17:25 [From Afrin (oxymetazoline)] face,lips and tongue Past Med/Surg History Problem List Ambulatory dysfunction (Acute) Acute pain of left knee (Acute) Incontinence DVT (deep venous thrombosis) (Acute) Hypertension (Acute) S/P prostatectomy Dyspnea on exertion Hypoxia (Acute) Bilateral pulmonary embolism (Acute) Admitted to intensive care unit Encounter for pre-operative examination S/P left knee arthroscopy Morbid obesity Prostate cancer (Chronic) Medical History Flat feet, bilateral Prostate cancer Surgical History H/O sinus surgery Family History Grandmother (Maternal) , of breast cancer age 86 No problems noted. Grandfather (Maternal) , in WW11 No problems noted. Grandfather (Paternal) , age 62 of heart attack No problems noted. Grandmother (Paternal) , age 86 with diabetes No problems noted. Father Age: 88 Heart disease heart stents and bypass Mother Age: 85 No problems noted. Sister Age: 69 No problems noted. Son Age: 27 No problems noted. Daughter Age: 21 No problems noted. 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 Feels Safe at Home: Yes Childhood Exposure to Second-Hand Smoke: No caffeine: Yes (2 or 3 cups a day) during the past year weight has: remained stable Dental Care, Regularly: Yes Physical Activity Frequency: 1-2 Times per Week Seatbelt Use: always Sunscreen Use: Yes Do you think of yourself as: straight/heterosexual Sexual Activity: has been sexually active within the last 12 months Assistive Devices: None Review of Systems A total of 10 systems reviewed and were otherwise negative Physical Exam Vital Signs Vital Signs - 24 hr 08/22/24 11:30 08/22/24 12:25 08/22/24 12:35 Temperature 36.8 C Temperature Source Temporal Artery Scan Pulse Rate 77 71 70 Pulse Rate [Apical] Pulse Strength Normal Respiratory Rate 19 13 Respiratory Effort / Characteristics Non-Labored Spontaneous Respiratory Depth Normal Respiratory Pattern Regular Blood Pressure 194/129 H Blood Pressure [Right Arm] Blood Pressure Mean 150 Blood Pressure Mean [Right Arm] Blood Pressure Position Sitting Pulse Oximetry 97 97 Oxygen Delivery Method Room Air Room Air Sepsis Recent Fever Within 48 Hours No Sepsis New/Unexplained Change in Mental Status No Sepsis Action Taken by Nursing No Action Required 08/22/24 15:00 08/22/24 16:29 08/22/24 18:00 Temperature Temperature Source Pulse Rate 72 Pulse Rate [Apical] 73 71 Pulse Strength Respiratory Rate 16 16 Respiratory Effort / Characteristics Non-Labored Spontaneous Non-Labored Spontaneous Respiratory Depth Normal Respiratory Pattern Regular Blood Pressure Blood Pressure [Right Arm] 197/101 H 169/89 H Blood Pressure Mean Blood Pressure Mean [Right Arm] 133 115 Blood Pressure Position Pulse Oximetry 96 96 Oxygen Delivery Method Room Air Sepsis Recent Fever Within 48 Hours Sepsis New/Unexplained Change in Mental Status Sepsis Action Taken by Nursing 08/22/24 18:00 Temperature Temperature Source Pulse Rate 71 Pulse Rate [Apical] Pulse Strength Respiratory Rate 16 Respiratory Effort / Characteristics Respiratory Depth Respiratory Pattern Blood Pressure Blood Pressure [Right Arm] Blood Pressure Mean Blood Pressure Mean [Right Arm] Blood Pressure Position Pulse Oximetry 96 Oxygen Delivery Method Room Air Sepsis Recent Fever Within 48 Hours Sepsis New/Unexplained Change in Mental Status Sepsis Action Taken by Nursing VITAL SIGNS - Vital signs and nursing notes were reviewed. Hypertensive, otherwise stable and afebrile. GENERAL -63-year-old male appearing his stated age who is in no acute distress. Communicates well with provider and answers questions appropriately. SKIN - Without rashes. No meningeal or petechial rash. Left knee edema noted but no erythema. No increased warmth compared to the right lower extremity. HEAD - NC/AT. EYES - PERRL with EOMI bilaterally. Sclera anicteric. NOSE - Midline and without cyanosis. No epistaxis or purulent drainage noted. MOUTH/OROPHARYNX - Without perioral cyanosis. NECK - Neck with FROM. No nuchal rigidity. LUNGS - Chest wall symmetric without accessory muscle use, intercostals retractions, or central cyanosis. Normal vesicular breath sounds CTA B/L. No wheezes, rales, or rhonchi appreciated. CARDIAC - RRR EXTREMITIES - No clubbing or peripheral cyanosis. Skin as above. Left knee is tender to palpation. There is no fluctuance or crepitus. The left lower extremity is appropriately warm and well-perfused. Decreased active and passive range of motion of the left knee secondary to pain. +5/5 strength noted in UE/LE bilaterally. NEUROLOGIC -sensory intact throughout the left lower extremity without deficit PSYCH -alert, oriented and pleasant on exam Course Administered Medications Discontinued Medications Morphine Sulfate (Morphine Sulfate 4 Mg/Ml 1 Ml Carp\\Vial) 4 mg IV NOW STA Stop: 08/22/24 15:39 Last Admin: 08/22/24 15:48 Dose: 4 mg Documented By: DEMARCO Oxycodone HCl (Oxycodone Hcl Ir 5 Mg Tab (Immediate Release)) 5 mg PO NOW STA Stop: 08/22/24 12:03 Last Admin: 08/22/24 12:17 Dose: 5 mg Documented By: CADEN Medical Decision Making Laboratory Data 08/22/24 12:54 08/22/24 12:18 Lab Results 08/22/24 08/22/24 Range/Units 12:18 12:54 WBC Cancelled 8.18 RBC Cancelled 4.37 L Hgb Cancelled 13.4 L Hct Cancelled 40.2 L MCV Cancelled 92.0 MCH Cancelled 30.7 MCHC Cancelled 33.3 RDW Std Deviation Cancelled 47.8 H RDW Coeff of Jimmy Cancelled 14.1 Plt Count Cancelled 236 MPV Cancelled 9.0 L Immature Gran % (Auto) Cancelled 0.5 Neut % (Auto) Cancelled 82.6 Lymph % (Auto) Cancelled 7.3 [place] % (Auto) Cancelled 8.3 Eos % (Auto) Cancelled 0.6 Baso % (Auto) Cancelled 0.7 Neut # (Auto) Cancelled 6.75 H Lymph # (Auto) Cancelled 0.60 L [place] # (Auto) Cancelled 0.68 H Eos # (Auto) Cancelled 0.05 Baso # (Auto) Cancelled 0.06 Immature Gran # (Auto) Cancelled 0.04 Absolute Nucleated RBC Cancelled Nucleated RBC % (auto) Cancelled Neutrophils % (Manual) Cancelled Band Neutrophils % Cancelled Lymphocytes % (Manual) Cancelled Prolymphocyte % Cancelled Reactive Lymphs % (Man) Cancelled Monocytes % (Manual) Cancelled Eosinophils % (Manual) Cancelled Basophils % (Manual) Cancelled Metamyelocytes % (Man) Cancelled Myelocytes % (Man) Cancelled Promyelocytes % (Man) Cancelled Blast Cells % (Manual) Cancelled Plasma Cell % (Manual) Cancelled Other Cells % Cancelled Nucleated RBC % Cancelled Neutrophils # (Manual) Cancelled Band Neutrophils # Cancelled Total Absolute Neuts Cancelled Lymphocytes # (Manual) Cancelled Prolymphocyte # Cancelled Reactive Lymphs # Cancelled Total Abs Lymphocytes Cancelled Monocytes # (Manual) Cancelled Eosinophils # (Manual) Cancelled Basophils # (Manual) Cancelled Metamyelocytes # (Man) Cancelled Myelocytes # (Manual) Cancelled Promyelocytes # (Man) Cancelled Blast Cells # (Man) Cancelled Plasma Cell # (Manual) Cancelled Other Cells # Cancelled Nucleated RBCs # (Man) Cancelled Hypersegmented Neuts Cancelled Hyposegmented Neuts Cancelled Hypogranular Neuts Cancelled Large Granular Lymphs Cancelled # Lrg Granular Lymphs Cancelled Hairy Cells Cancelled Smudge Cells Cancelled Toxic Granulation Cancelled Toxic Vacuolation Cancelled Dohle Bodies Cancelled [place] Rods Cancelled Platelet Estimate Cancelled Hypogranular Platelets Cancelled Giant Platelets Cancelled Platelet Satelliting Cancelled RBC Morphology Cancelled Polychromasia Cancelled Hypochromasia Cancelled Poikilocytosis Cancelled Basophilic Stippling Cancelled Anisocytosis Cancelled Microcytosis Cancelled Macrocytosis Cancelled Spherocytes Cancelled Pappenheimer Bodies Cancelled Sickle Cells Cancelled Target Cells Cancelled Tear Drop Cells Cancelled Ovalocytes Cancelled Stomatocytes Cancelled [place] Bodies Cancelled Echinocytes Cancelled Acanthocytes (Spur) Cancelled Rouleaux Cancelled RBC Agglutinates Cancelled Schistocytes Cancelled Sezary Cell Cancelled PT 23.3 H (9.0-12.0) Seconds INR 2.3 H (0.9-1.1) APTT 23 (21-31) Seconds PTT Ratio 0.9 Sodium 137 (136-145) mmol/L Potassium 4.1 (3.5-5.1) mmol/L Chloride 106 (98-107) mmol/L Carbon Dioxide 25 (21-32) mmol/L Anion Gap 6 (3-11) BUN 16 (6-23) mg/dl Creatinine 0.84 (0.6-1.4) mg/dl Est Cr Clr Drug Dosing Not Reportable eGFR 99.21 BUN/Creatinine Ratio 19.0 (10-20) Glucose 159 H (70-99(Fasting)) mg/dl Uric Acid 5.5 (2.6-7.2) mg/dl Calcium 9.3 (8.6-10.3) mg/dl Total Bilirubin 0.5 (0.2-1.0) mg/dl AST 20 (13-39) U/L ALT 15 (7-52) U/L Alkaline Phosphatase 83 (34-104) U/L Total Protein 6.7 (6.0-8.3) gm/dl Albumin 4.2 (3.4-5.0) gm/dl Globulin 2.5 (2.5-4.0) gm/dl Albumin/Globulin Ratio 1.7 (0.9-2) Blood Parasites ID Cancelled Imaging Data Radiologist's Impression: Knee X-Ray 08/22/24 12:01 XR knee LT 1 or 2V routine CLINICAL HISTORY: L knee pain COMPARISON: None FINDINGS: There is moderate medial compartment narrowing with osteophytosis. There is a moderate joint effusion. No fracture or dislocation. IMPRESSION: Osteoarthritis with joint effusion. ACT 112: Negative or not required by law. Electronically signed by: Vinicio Brar M.D. 08/22/2024 12:50 PM Venous Doppler Study 08/22/24 12:01 LEFT LOWER EXTREMITY VENOUS DOPPLER HISTORY: L knee/leg pain COMPARISON STUDY: 04/03/2019 FINDINGS: No evidence of DVT seen at the left lower extremity. At the left popliteal fossa there is an oval lobulated mixed echogenicity finding measuring 7 cm in greatest dimension. IMPRESSION: 1. No DVT seen at the left lower extremity. 2. Finding in the left popliteal fossa. Differential diagnosis includes soft tissue mass/malignancy, hematoma, and complex Yeager's cyst. . ACT 112: Positive. There are findings on this exam that require communication between the performing entity and the patient following Patient Test Result Information Act ([place] Act 112) guidelines. Electronically signed by: Vinicio Brar M.D. 08/22/2024 2:02 PM MDM Narrative Patient was seen and evaluated as above in room D04b. Review was performed of triage nursing notes and vital signs. I did review pertinent previous visits and patient history. After obtaining a thorough history and physical examination the above work up was performed. Patient presents to us today for evaluation of left knee pain that developed when he stood from a seated position. On examination this appears to be musculoskeletal etiology. There is no evidence of infection clinically. The patient does appear to be in pain. Options of care were discussed with the patient. IV access was established. Labs were drawn. There is no leukocytosis. There is minor anemia with hemoglobin of 13.4. INR 2.3. No emergent metabolic disturbance. Mild hyperglycemia 159. Lyme screen is pending. X-ray of the left knee and ultrasound was performed to be thorough. X-ray with evidence of arthritis and joint effusion. This is felt to be secondary to injury and is not felt to be secondary to infection. The ultrasound is without DVT. There is abnormality noted to the popliteal fossa which I favor to be either hematoma or complex Yeager's cyst. Soft tissue mass felt to be less likely but is noted to be in the differential by radiologist. The patient was able to call orthopedics while here and schedule follow-up for tomorrow. Magen wrap was applied to the knee with good fit. However, when I attempted ambulatory trial with the patient and family at bedside he had significant issues using the walker noting inability to use the left lower extremity and had significant pain in the left knee. I do believe that secondary to his left knee issues today he is a high fall risk as evidenced by witnessing his attempted ambulatory trial with a walker, and with his anticoagulated state do believe a fall would be of high consequence for the patient. I discussed multiple options with the patient and family. Ultimately we agreed inpatient management would be best. Case discussed with the hospitalist service. Please refer to further documentation regarding his stay. In the evaluation and treatment of this patient the following differential diagnoses were entertained: Sprain, strain, septic joint, Lyme arthritis, gout, among others Impression & Plan Acute pain of left knee, Ambulatory dysfunction Discharge Plan Visit Data Chief Complaint: Knee Injury/Pain Stated Complaint: LT KNEE INJURY ED Provider: [facility] ED Midlevel Provider: Nehemias Quiles Discharge Problem: Acute pain of left knee, Ambulatory dysfunction Patient Disposition: Admitted As Inpatient Condition: Good Forms Stand Alone Forms: My [facility], Important Visit Information Prescriptions Prescriptions: No Action amlodipine 5 mg Tablet 5 mg PO QAM warfarin 5 mg tablet See Rx Instructions .ROUTE .COMPLEX Rx Instructions: TAKE 1 TABLET BY MOUTH ON WEDNESDAYS. TAKE 1.5 TABLET ALL OTHER DAYS OF WEEK lisinopril-hydrochlorothiazide 20-25 mg tablet 1 tab PO QAM Xtandi 40 mg capsule 160 mg PO DAILY Referrals Referrals: Will Jordan DO [Primary Care Provider] -
[2024-08-22] MEDS: oxyCODONE HCL IR 5 MG TAB (IMMEDIATE RELEASE) PO STA (12:17)
--- NOTE | 2024-08-22 12:51 | XRay Report ---
XR knee LT 1 or 2V routine CLINICAL HISTORY: L knee pain COMPARISON: None FINDINGS: There is moderate medial compartment narrowing with osteophytosis. There is a moderate rubina nt effusion. No fracture or dislocation. IMPRESSION: Osteoarthritis with joint effusion. ACT 112: Negative or not required by law. Electronically signed by: Vinicio Brar M.D. 08/22/2024 12:50 PM
[2024-08-22 12:52] LABS: Alanine Aminotransferase 15 U/L (7-52); Albumin Globulin Ratio 1.7 (0.9-2); Albumin Level 4.2 gm/dl (3.4-5.0); Alkaline Phosphatase 83 U/L (34-104); Anion Gap 6 (3-11); Aspartate Aminotransferase 20 U/L (13-39); Bilirubin,Total 0.5 mg/dl (0.2-1.0); Blood Urea Nitrogen 16 mg/dl (6-23); Calcium 9.3 mg/dl (8.6-10.3); Carbon Dioxide 25 mmol/L (21-32); Chloride 106 mmol/L (98-107); Globulin 2.5 gm/dl (2.5-4.0); Glucose 159 mg/dl (70-99(Fasting)); Potassium 4.1 mmol/L (3.5-5.1); Sodium 137 mmol/L (136-145); Total Protein 6.7 gm/dl (6.0-8.3); Uric Acid 5.5 mg/dl (2.6-7.2)
[2024-08-22 13:04] LABS: INR 2.3 (0.9-1.1); Partial Thromboplastin Ratio 0.9; Partial Thromboplastin Time 23 Seconds (21-31); Prothrombin Time 23.3 Seconds (9.0-12.0)
[2024-08-22 13:11] LABS: Basophils # (auto) 0.06 K/uL (0.00-0.20); Basophils % (auto) 0.7 %; Eosinophils # (auto) 0.05 K/uL (0.00-0.50); Eosinophils % (auto) 0.6 %; Hematocrit (blood only) 40.2 % (42.0-52.0); Hemoglobin 13.4 g/dl (14.0-18.0); Immature Granulocytes # (auto) 0.04 K/uL (0.01-0.20); Immature Granulocytes % (auto) 0.5 %; Lymphocytes % (auto) 7.3 %; Mean Corpuscular Hemoglobin 30.7 pg (25.0-34.0); Mean Corpuscular Hgb Conc 33.3 g/dL (32.0-36.0); Monocytes # (auto) 0.68 K/uL (0.11-0.59); Monocytes % (auto) 8.3 %; Neutrophils # (auto) 6.75 K/uL (1.40-6.50); Neutrophils % (auto) 82.6 %; Platelet Count 236 K/uL (130-400); RDW Coefficient of Variation 14.1 % (11.5-14.5); RDW Standard Deviation 47.8 fL (36.4-46.3); Red Blood Count 4.37 M/uL (4.70-6.10); White Blood Count 8.18 K/ul (4.8-10.8)
--- NOTE | 2024-08-22 14:03 | Ultrasound Report ---
LEFT LOWER EXTREMITY VENOUS DOPPLER HISTORY: L knee/leg pain COMPARISON STUDY: 04/03/2019 FINDINGS: No evidence of DVT seen at the left lower extremity. At the left popliteal fossa there is a n oval lobulated mixed echogenicity finding measuring 7 cm in greatest dimension. IMPRESSION: 1. No DVT seen at the left lower extremity. 2. Finding in the left popliteal fossa. Differential diagnosis includes soft tissue mass/malignancy, hematoma, and complex Yeager's cyst. . ACT 112: Positive. There are findings on this exam that require communication between the performing entity and the patient following Patient Test Result Information Act ([place] Act 112) guidelines. Electronically signed by: Vinicio Brar M.D. 08/22/2024 2:02 PM
[2024-08-22] MEDS: MoRPHine SULFATE 4 MG/ML 1 ML CARP\\VIAL IV STA (15:48)
--- OUTSIDE RECORDS SUMMARY | 2024-08-22 16:41 | External Medical Summary | Summary of Care ---
Author Name Unknown Organization [facility] Address [address] [place] [address] Phone [phone] Care Team Providers Care Offset [employer] Pressmen Name Role Phone Will Jordan DO Primary Care Provider [phone] Reason for Visit * Reason Onset Date Comments Health Maintenance 06/21/2024 Encounter Details Date Type Department Care Team (Late st Contact Info) Description 06/21/2024 Telephone Family Practice [facility] [address] [facility] [place] [address] Will Jordan DO [address] [place] [address] Health Maintenance Allergies Active Allergy Reactions Criticality Noted Date Comments Oxymetazoline Hcl Edema face/lips/tongue High 2007 Nsaids Edema face/lips/tongue High 02/23/2008 documented as of this encounter (statuses as of 06/21/2024) Medications amLODIPine Besylate 5 MG Oral Tablet (Norvasc)Indica tions:HTN, goal below 140/90 Take 1 Tablet by mouth in the morning. In the morning.. 90 Tablet 3 08/27/2023 Active Warfarin Sodium 5 MG Oral Tablet (Coumadin)Indic ations:Pulmonar y embolism and infarction (HCC) TAKE 1 TABLET THURSDAY; 1 AND 1/2 TABLETS ALL OTHER DAY OR DIRECTED BY COUMADIN CLINIC 135 Tablet 3 11/02/2023 Active Enzalutamide 40 MG Oral Capsule (Xtandi) Take 4 Capsules by mouth daily. 12/02/2023 Active Lisinopril-hydr oCHLOROthiazide 20-12.5 MG Oral TabletIndicatio ns:HTN, goal below 140/90 TAKE 1 TABLET BY MOUTH EVERY MORNING 90 Tablet 1 03/01/2024 Active documented as of this encounter (statuses as of 06/21/2024) Active Problems Problem Noted Date Diagnosed Date Prediabetes 08/31/2023 Overview: Per Prediabetes protocol Body mass index (BMI) of 40.0 to 44.9 in adult 1 04/27/2020 Overview: Per Obesity protocol Erectile dysfunction following radiation therapy 02/04/2021 Pulmonary embolism and infarction 04/11/2019 Overview (02/04/2021): Coumadin for life per hem/onc Prostate cancer 03/04/2019 HTN, goal below 140/90 03/04/2019 TORN ANTERIOR CRUCIATE LIG-OLD 03/09/2006 documented as of this encounter (statuses as of 06/21/2024) Resolved Problems Problem Noted Date Diagnosed Date Resolved Date Acute deep vein thrombosis ( DVT) of distal vein of lower extremity 05/09/2019 07/28/2023 Class 3 severe obesity due t o excess calories without serious comorbidity with body mass index (BMI) of 40.0 to 44.9 in adult 07/13/201807/2019 ADVANCE DIRECTIVE INFORMATION 03/18/2005 02/22/2024 Overview (03/18/2005): No, Advance Directive brochure given to patient. NO KNOWN PROBLEMS 08/04/2018 documented as of this encounter (statuses as of 06/21/2024) Immunizations Name Administration Dates Next Due COVID-19 mRNA, LNP-s, No Pre serve, 2-Dose Series (Moderna) 12/17/2020,06/19/2020,05/15/2020 COVID-19, MRNA-LNP, 24-25, P R, 30MCG/0.3ML, IM, 12YRS AND ABOVE ([facility]) 01/04/2024 COVID-19, mRNA, LNP-s, PF, B ooster, 100mcg/0.5mg (Moderna) 09/09/2021 Seasonal Influenza, PF, 6 M & above, IM , (FluLaval or Fluzone) 01/16/2023,01/14/2021,02/10/2020,2019 Seasonal Influenza, Trivalen t, (IIV3), PF, (Fluzone) 02/15/2024 TD, Preservative Free 08/04/2018 TDAP, Age 7 and older, IM (Adacel) 02/28/2008 documented as of this encounter Social History Tobacco Use Types Packs/Day Years Used Date Smoking Tobacco: Former Cigarettes 2 5 S tarted: 1980 Smokeless Tobacco: Never Alcohol Use Standard Drinks/Week Comments Yes 0 (1 standard drink = 0.6 oz pur e alcohol) 2 glasses of wine with dinner PHQ-2 Answer Date Recorded PHQ Adult Total Score 1 08/06/2021 Sex and Gender Information Value Date Recorded Sex Assigned at Male 08/06/2021 12:43 PM EDT Legal Sex Male 5:39 AM EST Gender Identity Male 08/06/2021 12:43 PM EDT Sexual Orientation Straight 08/06/2021 12 :43 PM EDT Occupation Industry Job Start Date Job End Date [employer] Not on file Not on file Not on file documented as of this encounter Miscellaneous Notes * Telephone Encounter - Kathy Morales LPN - 06/21/2024 8:10 AM EST Care Gaps Comprehensive Care Outreach Last Office/Telemedicine Visit: 06/02/2024 (in office), Visit date not found (telemedicine) Next Office Visit: 08/16/2024 Hemoglobin AIC Results: Lab Results Component Value Date/Time HEMOGLOBIN A1C - [facility] 5.8 (H) 07/28/2023 12:34 PM BP Readings from Last 1 Encounters: 06/02/24 142/80 Reviewed Health Maintenance below: Health Maintenance Topic Date Due Zoster Vaccines (1 of 2) Never done Pneumococcal Vaccine: 50+ Years (1 of 1 - PCV) Never done Depression Screening 08/06/2022 COVID-19 Vaccine ( season) 2024 Care Gap Outreach Action Taken: Outreach not indicated documented in this encounter Plan of Treatment Upcoming Encounters Date Type Department Care Team (Late st Contact Info) Description 06/21/2024 10:10 AM EST Anticoagulation Pharmacy, [facility] [address] [place] [address] Pharmacist1, [facility] [address] [facility] [place] [id number] 08/16/2024 4:00 PM EDT Office Visit Family Practice [facility] [address] [place] [address] Will Jordan, [address] [facility] [place] [address] Scheduled Procedures Name Priority Associated Diagnoses Date/Ti me COLONOSCOPY FLEXIBLE PROXIMAL DIAGNOSTIC Recall Screen for colon cancer Health Maintenance Due Date Last Done Comments Cologuard 09/04/2007 Fecal Occult Blood Test 09/04/2007 Sigmoidoscopy 09/04/2007 Pneumococcal Vaccine: 50+ Years (1 of 1 - PCV) 2012 Zoster Vaccines (1 of 2) 2012 Depression Screening 08/06/2022 08/06/2021 COVID-19 Vaccine ( - season) 2024 01/04/2024, 09/09/2021, 12/17/2020, Additional history exists GFR 03/23/2025 03/23/2024, 04/0 12/2023, 10/30/2022, Additional history exists HbA1c 03/23/2025 03/23/2024, 07/28/2023 Albumin/Creatinine Ratio 07/27/2026 07/28/2023 DTap/Tdap Vaccines (3 - Td or Tdap) 08/04/2028 08/04/2018, 02/28/2008 Lipid Panel 03/23/2029 03/23/2024, 07/19, 03/08/2008 Colonoscopy 02/26/2030 02/27/2020, 02/27/2020 Colorectal Cancer Screening 02/26/2030 Influenza Vaccine (FLU shot) Completed , 01/16/2023, 01/14/2021, Additional history exists HPV (Gardasil) Vaccine Aged Out No lo nger eligible based on patient's age to complete this topic Hepatitis B Vaccine Aged Out No longe r eligible based on patient's age to complete this topic MENINGOCOCCAL (MENACTRA/MENVEO) Aged Out No longer eligible based on patient's age to complete this topic Meningitis B Vaccine (Bexsero/Trumemba) Aged Out No longer eligible based on patient's age to complete this topic documented as of this encounter Medical Devices Not on filedocumented as of this encounter Care Teams [employer] Relationship Specialty Start Date End Date Will Jordan DO [address] [place] [address] PCP - General Family Medicine 05/29/14 documented as of this encounter
--- OUTSIDE RECORDS SUMMARY | 2024-08-22 16:41 | External Medical Summary | Summary of Care ---
Author Name Unknown Organization [facility] Address [address] [place] [address] Phone [phone] Care Team Providers Care Method Consultant Name Role Phone Will Jordan DO Primary Care Provider +1 [phone] Reason for Visit * Reason Comments Dosage Adjustment In Person (Anticoag Cl inic) Encounter Details Date Type Department Care Team (Latest Contact Info) Description 06/21/2024 10:10 AM EST Anticoagulation Pharmacy, [facility] [address] [facility] [place] [address] Pharmacist1, [facility] [address] [facility] [place] [address] Pulmonary embolism and infarction (HCC)*; Anticoagulation management encounter Allergies Active Allergy Reactions Criticality Noted Date [...] P R, 30MCG/0.3ML, IM, 12YRS AND ABOVE (Pfizer-Comirnat) 01/04/2024 COVID-19, mRNA, LNP-s, PF, B ooster, [...] on file documented as of this encounter Progress Notes * Benjy Fried RPh - 06/21/2024 10:22 AM EST Medication Therapy Disease Management - Anticoagulation Harrison Morton is an 63 year old male who presents to clinic for anticoagulation management. Patient Findings Negatives: Signs/symptoms of thrombosis, Signs/symptoms of bleeding, Change in health, Change in alcohol use, Change in activity, Upcoming invasive procedure, Missed doses, Extra doses, Change in medications, Change in diet/appetite, Bruising INR Result As of 06/21/2024 INR goal: 2.0-3.0 INR used for dosin.0 (06/21/2024) Warfarin Plan As of 06/21/2024 Full warfarin instructions: 7.5 mg every day No change documented: Benjy Fried RPh Next INR check: 08/09/2024 Repeat PT/INR in 6 week(s) Weekly dose: not changed I spent a total of 10-19 minutes (exact time 13 mins) on the date of service in preparation, delivery, and documentation of the care provided to Harrison Morton excluding any time spent in the performance of separately billed services or time spent by another provider/QHP. Benjy Larose RPh, [facility] Clinical Pharmacist Medication Therapy Disease Management 06/21/2024, 10:25 AM documented in this encounter Plan of Treatment Upcoming Encounters Date Type Department Care Team (Late st Contact Info) Description 08/09/2024 9:30 AM EDT Anticoagulation Pharmacy, [facility] [address] [facility] [place] [address] Pharmacist1, [facility] [address] [facility] [place] [address] 08/16/2024 4:00 PM EDT Office Visit Family Practice [facility] [address] [facility] [place] [address] Will Jordan, DO [address] [facility] [place] [address] Scheduled Procedures Name Priority Associated Diagnoses Date/Ti me COLONOSCOPY FLEXIBLE PROXIMAL DIAGNOSTIC Recall Screen for colon cancer Health Maintenance Due Date Last Done Comments Cologuard 09/04/2007 Fecal Occult Blood Test 09/04/2007 Sigmoidoscopy 09/04/2007 Pneumococcal Vaccine: 50+ Years (1 of 1 - PCV) 2012 Zoster Vaccines (1 of 2) 2012 Depression Screening 08/06/2022 08/06/2021 COVID-19 Vaccine ( season) 2024 01/04/2024, 09/09/2021, 12/17/2020, Additional history exists GFR 03/23/2025 03/23/2024, 04/12/2023, 10/30/2022, Additional history exists HbA1c 03/23/2025 03/23/2024, [...] Not on filedocumented as of this encounter Procedures Procedure Name Priority Date/Time Associated Diagnosis Comments INR FINGERSTICK, POINT OF CARE STAT 06/21/2024 10:23 AM EST Pulmonary embolism and infarction (HCC) Anticoagulation management encounter documented in this encounter Results * INR FINGERSTICK, POINT OF CARE (06/21/2024 10:23 AM EST) Fingerstick INR 2.0 INR 10:25 AM EST [facility] 56-02 Blood 06/21/2024 10:2 3 AM EST 06/21/2024 10:25 AM EST Narrative [facility] 56-02 - 06/21/2024 10:25 AM EST Therapeutic ranges for non-operative patients: Prophylaxsis/treatment of DVT: (Range:2.0-3.0) Treatment of pulmonary embolism:(Range:2.0-3.0) Prevention of systemic embolism from: -tissue heart valves -acute myocardial infarction -valvular heart disease -atrial fibrillation (Range: 2.0-3.0) Mechanical prosthetic valves: (Range: 2.5-3.5) Benjy Thuan V, RPh LAB POINT OF CARE TE ST DOCKED DEVICE UNSOLICITED RESULTS Final Result [facility] [address] [facility] [address] documented in this encounter Visit Diagnoses Diagnosis Pulmonary embolism and infarction (HCC)- Primary Other pulmonary embolism and infarction Anticoagulation management encounter Encounter for therapeutic drug monitoring documented in this encounter Care Teams Method Consultant Relationship Specialty Start Date End Date Will Jordan DO [facility] [address] PCP - General Family Medicine 05/29/14 documented as of this encounter
--- OUTSIDE RECORDS SUMMARY | 2024-08-22 16:41 | External Medical Summary ---
Author Name Unknown Address Unknown Organization K09:[facility] [place] [address] Laboratory Report Ordering Provider Test Date Status CLYDE BURDICK V 06/21/2024 10:23:45 Final Therapeutic ranges for non-o perative patients:
Prophylaxsis/treatment of DVT: (Range:2.0-3.0)
Treatment of pulmonary embolism:(Range:2.0-3.0)
Prevention of systemic embolism from:
-tissue heart valves
-acute myocardial infarction
-valvular heart disease
-atrial fibrillation
(Range: 2.0-3.0)
Mechanical prosthetic valves: (Range: 2.5-3.5) Observation Date Value Abnormality Reference (Units ) Status INR in Capillary blood by Coagulation assay 06/21/2024 10:23:45 2.0 (INR) Final Performing Location [facility] [place] [address]
--- OUTSIDE RECORDS SUMMARY | 2024-08-22 16:41 | External Medical Summary | Summary of Care ---
Author Name Unknown Organization [facility] Address [address] [place] [address] Phone [phone] Care Team Providers Care Lineman Service Or Work Dispatcher Name Role Phone Radha Espinosa DO Primary Care Provider [phone] Reason for Visit * Reason Comments eRx-Medication Refill Encounter Details Date Type Department Care Team (Late st Contact Info) Description 07/06/2024 Refill Family Practice [facility] [address] [facility] [place] [address] Radha Espinosa DO 200 [facility] [place] [address] HTN, goal below 140/90 Allergies Active Allergy Reactions Criticality Noted Date Comments Oxymetazoline Hcl Edema face/lips/tongue High 2007 Nsaids Edema face/lips/tongue High 02/23/2008 documented as of this encounter (statuses as of 07/07/2024) Medications amLODIPine Besylate 5 MG Oral Tablet (Norvasc)Indic ations:HTN, goal below 140/90 Take 1 Tablet by mouth in the morning. In the morning.. 90 Tablet 3 4 Active Warfarin Sodium 5 MG Oral Tablet (Coumadin)Xin cations:Pulmon florence embolism and infarction (HCC) TAKE 1 TABLET THURSDAY; 1 AND 1/2 TABLETS ALL OTHER DAY OR DIRECTED BY COUMADIN CLINIC 135 Tablet 3 4 Active Enzalutamide 40 MG Oral Capsule (Xtandi) Take 4 Capsules by mouth daily. 4 Active Lisinopril-hyd roCHLOROthiazi de 20-12.5 MG Oral TabletIndicati ons:HTN, goal below 140/90 TAKE 1 TABLET BY MOUTH EVERY MORNING 90 Tablet 1 5 Active Lisinopril-hyd roCHLOROthiazi de 20-12.5 MG Oral TabletIndicati ons:HTN, goal below 140/90 TAKE 1 TABLET BY MOUTH EVERY MORNING 90 Tablet 1 4 025 Discontinued documented as of this encounter (statuses as of 07/07/2024) Active Problems Problem Noted Date Diagnosed Date [...] as of this encounter (statuses as of 07/07/2024) Resolved Problems Problem Noted Date Diagnosed Date [...] as of this encounter (statuses as of 07/07/2024) Immunizations Name Administration Dates Next Due COVID-19 mRNA, LNP-s, No Pre serve, 2-Dose Series (Moderna) 12/17/2020,06/19/2020,05/15/2020 COVID-19, MRNA-LNP, 24-25, P R, 30MCG/0.3ML, IM, 12YRS AND ABOVE (Pfizer-Comirnaty) 01/04/2024 COVID-19, mRNA, LNP-s, PF, B ooster, [...] Industry Job Start Date Job End Date [place] Not on file Not on file Not on file documented as of this encounter Miscellaneous Notes * Telephone Encounter - Subhash Huitron, [facility] - 07/07/2024 10:21 AM EDTSigned Prescriptions: Disp Refills Lisinopril-hydroCHLOROthiazide 20-12.5 MG *90 Tab*1 Sig: TAKE 1 TABLET BY MOUTH EVERY MORNINGAuthorizing Provider: RADHA ESPINOSA User: SUBHASH HUITRON Electronically signed by Subhash Huitron [facility] at 07/07/2024 10:21 AM EDT documented in this encounter Plan of Treatment Upcoming Encounters Date Type Department Care Team (Late st Contact Info) Description 08/09/2024 9:30 AM EDT Anticoagulation Pharmacy, [facility] [place] [address] [facility] [place] [address] Pharmacist1, [facility] [address] [facility] [place] [address] 08/16/2024 4:00 PM EDT Office Visit Family Practice [facility] [place] [address] [place] [address] Radha Espinosa, DO [address] [facility] [place] [address] Scheduled Procedures Name Priority Associated Diagnoses Date/Ti [...] Not on filedocumented as of this encounter Visit Diagnoses Diagnosis HTN, goal below 140/90 Unspecified essential hypertension documented in this encounter Care Teams Lineman Service Or Work Dispatcher Relationship Specialty Start Date End Date Radha Espinosa DO [address] [place] [address] PCP - General Family Medicine 05/29/14 documented as of this encounter
--- OUTSIDE RECORDS SUMMARY | 2024-08-22 16:41 | External Medical Summary | Summary of Care ---
Author Name Unknown Organization [facility] Address [address] [place] [address] Phone [phone] Care Team Providers Care Manager Traffic Name Role Phone Will Jordan DO Primary Care Provider [phone] Reason for Visit * Reason Onset Date Comments Follow Up Immunizations 08/16/2024 Shingrix Encounter Details Date Type Department Care Team (Late st Contact Info) Description 08/16/2024 4:00 PM EDT Office Visit Family Practice [facility] [address] [facility] [place] [address] Will Jordan DO [address] [facility] [place] [address] HTN, goal below 140/90*; Need for vaccination for zoster; Screening for depression; Pulmonary embolism and infarction (HCC); Prostate cancer (HCC); Morbid obesity (HCC) Allergies Active Allergy Reactions Criticality Noted Date Comments Oxymetazoline Hcl Edema face/lips/tongue High 2007 Nsaids Edema face/lips/tongue High 02/23/2008 documented as of this encounter (statuses as of 08/17/2024) Medications Warfarin Sodium 5 MG Oral Tablet (Coumadin)Xin cations:Pulmon florence embolism and infarction (HCC) TAKE 1 TABLET THURSDAY; 1 AND 1/2 TABLETS ALL OTHER DAY OR DIRECTED BY COUMADIN CLINIC 135 Tablet 3 4 Active Enzalutamide 40 MG Oral Capsule (Xtandi) Take 4 Capsules by mouth daily. 4 Active amLODIPine Besylate 5 MG Oral Tablet (Norvasc)Indic ations:HTN, goal below 140/90 TAKE 1 TABLET BY MOUTH IN THE MORNING 90 Tablet 3 5 Active Lisinopril-hyd roCHLOROthiazi de 20-25 MG Oral TabletIndicati ons:HTN, goal below 140/90 Take 1 Tablet by mouth in the morning. 90 Tablet 3 5 Active Lisinopril-hyd roCHLOROthiazi de 20-12.5 MG Oral TabletIndicati ons:HTN, goal below 140/90 TAKE 1 TABLET BY MOUTH EVERY MORNING 90 Tablet 1 5 025 Discontinued documented as of this encounter (statuses as of 08/17/2024) Active Problems Problem Noted Date Diagnosed Date Morbid obesity 08/16/2024 Prediabetes 08/31/2023 Overview: Per Prediabetes protocol Body mass index (BMI) of 40.0 to 44.9 in adult 1 04/27/2020 Overview: Per Obesity protocol Erectile dysfunction following radiation therapy 02/04/2021 Pulmonary embolism and infarction 04/11/2019 Overview (02/04/2021): Coumadin for life per hem/onc Prostate cancer 03/04/2019 HTN, goal below 140/90 03/04/2019 TORN ANTERIOR CRUCIATE LIG-OLD 03/09/2006 documented as of this encounter (statuses as of 08/17/2024) Resolved Problems Problem Noted Date Diagnosed Date [...] as of this encounter (statuses as of 08/17/2024) Immunizations Name Administration Dates Next Due COVID-19 [...] Answer Date Recorded PHQ Adult Total Score 0 08/16/2024 Sex and Gender Information Value Date Recorded Sex Assigned at Male 08/06/2021 12:43 PM EDT Legal Sex Male 5:39 AM EST Gender Identity Male 08/06/2021 12:43 PM EDT Sexual Orientation Straight 08/06/2021 12 :43 PM EDT Occupation Industry Job Start Date Job End Date [employer] Not on file Not on file Not on file documented as of this encounter Last Filed Vital Signs Vital Sign Reading Time Taken Comments Blood Pressure 142/86 08/16/2024 4:01 PM EDT Pulse 70 08/16/2024 4:01 PM EDT Temperature 37.2 °C (99 °F) 08/16/2024 4:01 PM EDT Respiratory Rate 18 08/16/2024 4:01 PM EDT Oxygen Saturation 97% 08/16/2024 4:01 PM EDT Inhaled Oxygen Concentration - - Weight 154.6 kg (340 lb 12.8 oz) 08/16/2024 4:01 PM EDT Height - - Body Mass Index 42.37 10/30/2023 8:44 AM EDT documented in this encounter Patient Instructions * Patient Instructions* Amy Fatima LPN - 08/16/2024 4:03 PM EDT ~~PATIENT INSTRUCTIONS FOR SHINGRIX VACCINE~~ Possible side effects of Shingrix vaccine, (shingles), are usually mild and can include: 1. Soreness or redness at injection site 2. Low grade fever 3. Body aches You may use a fever / pain reducing medication as needed for these symptoms. LET YOUR DOCTOR KNOW IMMEDIATELY IF YOU HAVE DIFFICULTY BREATHING OR SWALLOWING, EXPERIENCE ITCHINGOF FEET OR HANDS, HAVE SWELLING OF EYES, FACE OR INSIDE OF NOSE. documented in this encounter Progress Notes * Will Jordan DO - 08/16/2024 4:09 PM EDT Subjective: Harrison Morton is a 63 year old male. Chief Complaint Patient presents with Follow Up Immunizations Shingrix HPI: Pt here in follow-up. Daughter graduating soon. Cold winter and too much work. He is run down from [place]. Gets better after a week He uses his CPAP regularly. Blood work already done with H/onc. Planning to get out bike riding. Doing it more. Diet discussed. Fell off mid-winter. Plans to get back to it. FAsting helped, 2 meals per day helped. Patient Active Problem List Diagnosis TORN ANTERIOR CRUCIATE LIG-OLD Prostate cancer (HCC) HTN, goal below 140/90 Pulmonary embolism and infarction (HCC) Erectile dysfunction following radiation therapy Body mass index (BMI) of 40.0 to 44.9 in adult (HCC) Prediabetes Morbid obesity (HCC) Current Outpatient Medications Medication Sig Dispense Refill Warfarin Sodium 5 MG Oral Tablet (Coumadin) TAKE 1 TABLET THURSDAY; 1 AND 1/2 TABLETS ALL OTHER DAY OR DIRECTED BY COUMADIN CLINIC 135 Tablet 3 Enzalutamide 40 MG Oral Capsule (Xtandi) Take 4 Capsules by mouth daily. Lisinopril-hydroCHLOROthiazide 20-12.5 MG Oral Tablet TAKE 1 TABLET BY MOUTH EVERY MORNING 90 Tablet 1 amLODIPine Besylate 5 MG Oral Tablet (Norvasc) TAKE 1 TABLET BY MOUTH IN THE MORNING 90 Tablet 3 No current facility-administered medications for this visit. Review of patient's allergies indicates: Allergen Reactions Afrin Nasal [place] [Oxymetazoline Hcl] Edema face/lips/tongue Nsaids Edema face/lips/tongue OBJECTIVE: BP 146/90 | Pulse 70 | Temp 99 °F (37.2 °C) (Tympanic) | Resp 18 | Wt (!) 340 lb 12.8 oz (154.6 kg) | SpO2 97% | BMI 42.37 kg/m² | BSA 2.86 m² Estimated body mass index is 42.37 kg/m² as calculated from the following: Height as of 10/30/23: 6' 3.2" (1.91 m). Weight as of this encounter: 340 lb 12.8 oz (154.6 kg). BP Readings from Last 3 Encounters: 08/16/24 146/90 06/02/24 142/80 02/15/24 142/90 Wt Readings from Last 3 Encounters: 08/16/24 (!) 340 lb 12.8 oz (154.6 kg) 06/02/24 (!) 334 lb (151.5 kg) 02/15/24 (!) 331 lb 6.4 oz (150.3 kg) ROS: Negative except for above PHYSICAL EXAM: General: alert, healthy, and no distress Head: Normocephalic, No masses, lesions, tenderness or abnormalities Heart: regular rate & rhythm, no murmur, and no gallops Lungs: chest symmetric with normal AP diameter, no chest deformities noted, no chest wall tenderness, lungs clear to auscultation ASSESSMENT/Plan HTN, goal below 140/90 (Primary) - Lisinopril-hydroCHLOROthiazide 20-25 MG Oral Tablet; Take 1 Tablet by mouth in the morning. Need for vaccination for zoster Screening for depression - DEPRESSION SCREENING PERFORMED Pulmonary embolism and infarction (HCC) Prostate cancer (HCC) Morbid obesity (HCC) BP not terrible today but apparently always very high at H/Onc. Will increase HCTZ side of combo pill. The above was discussed and understanding was expressed. Will Jordan DO * Amy Fatima LPN - 08/16/2024 4:02 PM EDT Does the patient have active shingles? No If, yes, patient must wait to receive vaccine till after rash is gone. Does the patient have an illness today with a fever more than 101?F? No Has the patient ever had a serious allergic reaction after receiving a vaccination? No Has the patient had a blood test showing they are not immune to Chicken Pox (rare)? No If yes, should get Chicken pox vaccine instead of shingrix. Verified patient has prescription/drug coverage. Patient has been informed that [employer] copays are close to $0. In most cases copays will be around $10. The maximum co-pay patients may get could as high as $200. no Shingrix Vaccine Information Sheet has been provided. Amy Fatima LPN 08/16/2024 4:02 PM IMMUNIZATION ADMINISTRATION DOCUMENTATION Time Out Procedure Performed: Yes Patient Identified (Ask Name/Date of ): Yes Patient allergic to latex?No VFC Stock? No Immunization(s) verified: Yes, Immunization Name: Shingrix, VIS Sheet(s) given: Yes Verified Side and Site: Yes Verified Shot(s) with Parent(s)/Patient: Yes Shingrix was administered per clinic protocol. Patient received the Shingrix VIS (Vaccine Information Sheet). Amy Fatima LPN, 08/16/2024, 4:02 PM documented in this encounter Nursing Notes * Amy Fatima LPN - 08/16/2024 4:04 PM EDT Patient has been verbally educated on the need or importance of Pneumococcal Vaccine and has declined topic(s). Patient will schedule a nurse visit in a few weeks to get his shingles vaccine. * Amy Fatima LPN - 08/16/2024 4:00 PM EDT Harrison Albino Morton presents for 6 month recheck. Medications & HM reviewed. documented in this encounter Plan of Treatment Upcoming Encounters Date Type Department Care Team (Late st Contact Info) Description 10/17/2024 8:50 AM EDT Anticoagulation Pharmacy, [facility] 200 [facility] [place], [place] [address] Pharmacist1, [facility] 200 [facility] [place], [place] [address] 04/10/2025 9:20 AM EST Office Visit Family Practice [facility] 200 [facility] [place] [address] Will Jordan DO 200 [facility] [place] [address] Scheduled Procedures Name Priority Associated Diagnoses Date/Ti me COLONOSCOPY FLEXIBLE PROXIMAL DIAGNOSTIC Recall Screen for colon cancer Health Maintenance Due Date Last Done Comments Cologuard 09/04/2007 Fecal Occult Blood Test 09/04/2007 Sigmoidoscopy 09/04/2007 Pneumococcal Vaccine: 50+ Years (1 of 1 - PCV) 2012 Zoster Vaccines (1 of 2) 2012 COVID-19 Vaccine ( - season) 2024 01/04/2024, 09/09/2021, 12/17/2020, Additional history exists GFR 03/23/2025 03/23/2024, 04/0 12/2023, 10/30/2022, Additional history exists HbA1c 03/23/2025 03/23/2024, 07/28/2023 Depression Screening 08/16/2025 08/16/2024 Albumin/Creatinine Ratio 07/27/2026 07/28/2023 DTap/Tdap Vaccines (3 [...] encounter Visit Diagnoses Diagnosis HTN, goal below 140/90- Primary Unspecified essential hypertension Need for vaccination for zoster Need for prophylactic vaccination and inoculation against other viral diseases Screening for depression Pulmonary embolism and infarction (HCC) Other pulmonary embolism and infarction Prostate cancer (HCC) Malignant neoplasm of prostate Morbid obesity (HCC) Morbid obesity documented in this encounter Care Teams Manager Traffic Relationship Specialty Start Date End Date Will Jordan DO [address] [place] [address] PCP - General Family Medicine 05/29/14 documented as of this encounter
--- OUTSIDE RECORDS SUMMARY | 2024-08-22 16:41 | External Medical Summary | Summary of Care ---
Author Name Unknown Organization [facility] Address [address] [place] [address] Phone [phone] Care Team Providers Care Certified Financial Planner Name Role Phone Will Jordan DO Primary Care Provider +1 [phone] Reason for Visit * Reason Comments Acute Encounter Details Date Type Department Care Team (Late st Contact Info) Description 06/02/2024 1:00 PM EST Office Visit Family Practice [facility] [address] [facility] [place] [address] Norma Stein MD [address] [facility] [address] Filiform wart* Allergies Active Allergy Reactions Criticality Noted Date Comments Oxymetazoline Hcl Edema face/lips/tongue High 2007 Nsaids Edema face/lips/tongue High 02/23/2008 documented as of this encounter (statuses as of 06/02/2024) Medications amLODIPine Besylate 5 MG Oral Tablet [...] as of this encounter (statuses as of 06/02/2024) Active Problems Problem Noted Date Diagnosed Date [...] as of this encounter (statuses as of 06/02/2024) Resolved Problems Problem Noted Date Diagnosed Date [...] as of this encounter (statuses as of 06/02/2024) Immunizations Name Administration Dates Next Due COVID-19 mRNA, LNP-s, No Pre serve, 2-Dose Series (Moderna) 12/17/2020,06/19/2020,05/15/2020 COVID-19, MRNA-LNP, 24-25, P R, 30MCG/0.3ML, IM, 12YRS AND ABOVE ([facility]) 01/04/2024 COVID-19, mRNA, LNP-s, PF, B [...] 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 Not on file Not on file documented as of this encounter Last Filed Vital Signs Vital Sign Reading Time Taken Comments Blood Pressure 142/80 06/02/2024 1:06 PM EST Pulse 73 06/02/2024 1:06 PM EST Temperature 36.7 °C (98 °F) 06/02/2024 1:06 PM EST Respiratory Rate 18 06/02/2024 1:06 PM EST Oxygen Saturation 98% 06/02/2024 1:06 PM EST Inhaled Oxygen Concentration - - Weight 151.5 kg (334 lb) 06/02/2024 1:06 PM EST Height - - Body Mass Index 41.53 10/30/2023 8:44 AM EDT documented in this encounter Progress Notes * Norma Stein MD - 06/02/2024 1:09 PM EST Subjective Chief Complaint Patient presents with Acute HPI: Harrison Morton is a 63 year old male. Patient is unaccompanied. The following issues were addressed today: Patient presents with c/o what he believes is a skin tag on his left cheek near his ear that he would like removed. Reports he's had it for 3-4 months now. Denies changes in size or shape. Denies anypruritus or pain. Review of Systems: See HPI Objective BP 142/80 | Pulse 73 | Temp 98 °F (36.7 °C) (Tympanic) | Resp 18 | Wt (!) 334 lb (151.5 kg) | SpO2 98% | BMI 41.53 kg/m² | BSA 2.84 m² Wt Readings from Last 3 Encounters: 06/02/24 (!) 334 lb (151.5 kg) 02/15/24 (!) 331 lb 6.4 oz (150.3 kg) 10/30/23 (!) 344 lb 12.8 oz (156.4 kg) BP Readings from Last 3 Encounters: 06/02/24 142/80 02/15/24 142/90 10/30/23 134/78 General: Well-appearing, no acute distress Skin: Keratinized growth left cheek Psychiatric: Appropriate mood and affect Assessment & Plan 1. Filiform wart Suspect wart. The viral etiology of this condition was reviewed with the patient. Cryotherapy was recommended for treatment today and patient was agreeable. Risks, benefits, and alternatives were discussed and consent was obtained. Lesions treated: 1 Location: Left cheek Lesion(s) treated with 3 cycles of cryotherapy with liquid nitrogen for 10 seconds each. Rod ringobtained. The patient tolerated the procedure well without complications. Standard post- procedure care was explained and return precautions were given. Advised to follow-up for re-treatment if no improvement. - BENIGN LESION DESTRUCTION, UP TO 14 LESIONS Return if symptoms worsen or fail to improve. This note was electronically signed by Norma Stein MD documented in this encounter Nursing Notes * Kera Juarez NA - 06/02/2024 1:01 PM EST Harrison Morton presents with complaints of a skin tag on his left cheek by his ear that he would like removed. Reports he's had it for 3-4 months now. Denies changes in size or shape. Denies any pruritus or pain. documented in this encounter Plan of Treatment Upcoming Encounters Date Type Department Care Team (Late st Contact Info) Description 06/21/2024 10:10 AM EST [facility] [place] [address] [facility] [address] Pharmacist1, [facility] 200 [facility] [place] [address] 08/16/2024 4:00 PM EDT Office Visit Family Practice [facility] [place] [address] [facility] [place] [address] Will Jordan DO [address] [facility] [place] [address] Scheduled Orders Name Type Priority Associated Diagnoses Orde r Schedule BENIGN LESION DESTRUCTION, UP TO 14 LESIONS Procedures Routine Filiform wart Ordered: 06/02/2024 Scheduled Procedures Name Priority Associated Diagnoses Date/Ti [...] as of this encounter Visit Diagnoses Diagnosis Filiform wart- Primary Other specified viral warts documented in this encounter Care Teams Certified Financial Planner Relationship Specialty Start Date End Date Will Jordan DO [address] [place] [address] PCP - General Family Medicine 05/29/14 documented as of this encounter"
--- OUTSIDE RECORDS SUMMARY | 2024-08-22 16:41 | External Medical Summary | Summary of Care ---
Author Name Unknown Organization [facility] Address [address] [place] [address] Phone [phone] Care Team Providers Care Rivet Bucker Name Role Phone Will Jordan DO Primary Care Provider [phone] Reason for Visit * Reason Comments Dosage Adjustment In Person (Anticoag Cl inic) Encounter Details Date Type Department Care Team (Latest Contact Info) Description 08/09/2024 9:30 AM EDT Anticoagulation Pharmacy, [facility] 200 [place] [address] Pharmacist1, [facility] 200 [facility] [place] [address] Pulmonary embolism and infarction (HCC)*; Anticoagulation management encounter Allergies Active Allergy Reactions Criticality Noted Date Comments Oxymetazoline Hcl Edema face/lips/tongue High 2007 Nsaids Edema face/lips/tongue High 02/23/2008 documented as of this encounter (statuses as of 08/09/2024) Medications amLODIPine Besylate 5 MG Oral Tablet [...] BY MOUTH EVERY MORNING 90 Tablet 1 07/07/2024 Active documented as of this encounter (statuses as of 08/09/2024) Active Problems Problem Noted Date Diagnosed Date [...] as of this encounter (statuses as of 08/09/2024) Resolved Problems Problem Noted Date Diagnosed Date [...] as of this encounter (statuses as of 08/09/2024) Immunizations Name Administration Dates Next Due COVID-19 mRNA, LNP-s, No Pre serve, 2-Dose Series (Moderna) 12/17/2020,06/19/2020,05/15/2020 COVID-19, MRNA-LNP, 24-25, P R, 30MCG/0.3ML, IM, 12YRS AND ABOVE ([facility]) 01/04/2024 COVID-19, mRNA, LNP-s, PF, B ooster, [...] of this encounter Progress Notes * Benjy Fried, [facility] - 08/09/2024 9:27 AM EDT Medication Therapy Disease Management - Anticoagulation Patient: Harrison Morton | : 1960 Subjective Contacts Contact Date/Time Type Contact Phone/Fax 08/02/2024 08:14 AM EDT Text Message (Outgoing) [phone] [facility]: Harrison, you have an upcoming visit on 08/09 at 9:30 AM. Details: [email or web address] Reply 1 to confirm or 3 to cancel. Reply STOP to opt out. 08/08/2024 08:13 AM EDT Text Message (Outgoing) [phone] [facility]: Harrison, tomas have an upcoming visit on 08/09 at 9:30 AM. Details: [email or web address] Reply 1 to confirm or 3 to cancel. Reply STOP to opt out. 08/09/2024 07:30 AM EDT Email SMS () [phone] Patient not accepting updates 08/09/2024 09:16 AM EDT Text Message (Outgoing) [phone] [facility]: Harrison, are you at the clinic entry level receptionist area for your appointment on 08/09/2024 at 9:30 AM at [address] [facility] [place] [address]? Reply 1 if you're here. Reply 2 for more options. Reply STOP to opt out. Patient-Reported Symptoms: Patient Findings Negatives: Signs/symptoms of thrombosis, Signs/symptoms of bleeding, Change in health, Change in alcohol use, Change in activity, Upcoming invasive procedure, Missed doses, Extra doses, Change in medications, Change in diet/appetite, Bruising Objective Current Warfarin Dose As of 08/09/2024 Warfarin maintenance plan: 10 mg (5 mg x 2) every Tue, Sat; 7.5 mg (5 mg x 1.5) all other days INR Result As of 08/09/2024 INR goal: 2.0-3.0 INR used for dosin.9 Assessment & Plan Warfarin Plan As of 08/09/2024 Full warfarin instructions: 10 mg every Tue, Sat; 7.5 mg all other days Next INR check: 10/17/2024 Repeat PT/INR in 8 week(s) Weekly dose: increased Additional Dosing Information: I spent a total of 10-19 minutes (exact time 13 mins) on the date of service in preparation, delivery, and documentation of the care provided to Harrison Morton excluding any time spent in the performance of separately billed services or time spent by another provider/QHP. Benjy Larose RPh Clinical Pharmacist 08/09/2024, 9:37 AM documented in this encounter Plan of Treatment Upcoming Encounters Date Type Department Care Team (Late st Contact Info) Description 08/16/2024 4:00 PM EDT Office Visit Family Practice [facility] 200 [facility] [place] [address] Will Jordan DO 200 [facility] [place] [address] 10/17/2024 8:50 AM EDT Anticoagulation Pharmacy, [facility] [place] 200 [facility] [place] [address] Pharmacist1, [facility] 200 [facility] [place] [address] Scheduled Procedures Name Priority Associated Diagnoses Date/Ti me COLONOSCOPY FLEXIBLE PROXIMAL DIAGNOSTIC Recall Screen for colon cancer Health Maintenance Due Date Last Done Comments Depression Screening 1974 Cologuard 09/04/2007 Fecal Occult Blood Test 09/04/2007 Sigmoidoscopy 09/04/2007 Pneumococcal Vaccine: 50+ Years (1 of 1 - PCV) 2012 Zoster Vaccines (1 of 2) 2012 COVID-19 Vaccine (5 - season) 2024 01/04/2024, 09/09/2021, 12/17/2020, Additional history exists GFR 03/23/2025 03/23/2024, 0412/2023, 10/30/2022, Additional history exists HbA1c 03/23/2025 03/23/2024, [...] as of this encounter Visit Diagnoses Diagnosis Pulmonary embolism and infarction (HCC)- Primary Other pulmonary embolism and infarction Anticoagulation management encounter Encounter for therapeutic drug monitoring documented in this encounter Care Teams Rivet Bucker Relationship Specialty Start Date End Date Will Jordan DO [address] [place] [address] PCP - General Family Medicine 05/29/14 documented as of this encounter"
--- OUTSIDE RECORDS SUMMARY | 2024-08-22 16:41 | External Medical Summary | Summary of Care ---
Author Name Unknown Organization [facility] Address [address] [place] [address] Phone [phone] Care Team Providers Care Tip Puncher Name Role Phone Radha Espinosa DO Primary Care Provider [phone] Reason for Visit * Reason Comments eRx-Medication Refill Encounter Details Date Type Department Care Team (Late st Contact Info) Description 08/13/2024 Refill Family Practice [facility] [place] [address] Radha Espinosa DO 200 [facility] [place] [address] HTN, goal below 140/90 Allergies Active Allergy Reactions Criticality Noted Date Comments Oxymetazoline Hcl Edema face/lips/tongue High 2007 Nsaids Edema face/lips/tongue High 02/23/2008 documented as of this encounter (statuses as of 08/13/2024) Medications Warfarin Sodium 5 MG Oral Tablet [...] EVERY MORNING 90 Tablet 1 5 Active amLODIPine Besylate 5 MG Oral Tablet (Norvasc)Indic ations:HTN, goal below 140/90 TAKE 1 TABLET BY MOUTH IN THE MORNING 90 Tablet 3 5 Active amLODIPine Besylate 5 MG Oral Tablet (Norvasc)Indic ations:HTN, goal below 140/90 Take 1 Tablet by mouth in the morning. In the morning.. 90 Tablet 3 4 025 Discontinued documented as of this encounter (statuses as of 08/13/2024) Active Problems Problem Noted Date Diagnosed Date [...] as of this encounter (statuses as of 08/13/2024) Resolved Problems Problem Noted Date Diagnosed Date [...] as of this encounter (statuses as of 08/13/2024) Immunizations Name Administration Dates Next Due COVID-19 [...] encounter Miscellaneous Notes * Telephone Encounter - Jose Antonio Holman [facility] - 08/13/2024 9:29 PM EDTSigned Prescriptions: Disp Refills amLODIPine Besylate 5 MG Oral Tablet (Norv*90 Tab*3 Sig: TAKE 1 TABLET BY MOUTH IN THE MORNINGAuthorizing Provider: RADHA ESPINOSA User: JOSE ANTONIO HOLMAN documented in this encounter Plan of Treatment Upcoming Encounters Date Type Department Care Team (Late st Contact Info) Description 08/16/2024 4:00 PM EDT Office Visit Family Practice [facility] [place] [address] [place] [address] Radha Espinosa, DO [address] [place] [address] 10/17/2024 8:50 AM EDT Anticoagulation Pharmacy, [facility] [place] [address] [place] [address] Pharmacist1, [facility] [address] [place] [address] Scheduled Procedures Name Priority Associated Diagnoses Date/Ti me COLONOSCOPY FLEXIBLE PROXIMAL DIAGNOSTIC Recall Screen for colon cancer Health Maintenance Due Date Last Done Comments Depression Screening 1974 Cologuard 09/04/2007 Fecal Occult Blood Test 09/04/2007 Sigmoidoscopy 09/04/2007 Pneumococcal Vaccine: 50+ Years (1 of 1 - PCV) 2012 Zoster Vaccines (1 of 2) 2012 COVID-19 Vaccine (5 - 2023- season) 2024 01/04/2024, 09/09/2021, 12/17/2020, Additional history [...] hypertension documented in this encounter Care Teams Tip Puncher Relationship Specialty Start Date End Date Radha Espinosa DO [address] [place] [address] PCP - General Family Medicine 05/29/14 documented as of this encounter
--- OUTSIDE RECORDS SUMMARY | 2024-08-22 16:42 | External Medical Summary ---
Author Name Unknown Address Unknown Organization K09:[facility] [place] [address] Laboratory Report Ordering Provider Test Date Status CLYDE BURDICK V 03/30/2024 11:30:24 Final Therapeutic ranges for non-o perative patients:
Prophylaxsis/treatment of DVT: (Range:2.0-3.0)
Treatment of pulmonary embolism:(Range:2.0-3.0)
Prevention of systemic embolism from:
-tissue heart valves
-acute myocardial infarction
-valvular heart disease
-atrial fibrillation
(Range: 2.0-3.0)
Mechanical prosthetic valves: (Range: 2.5-3.5) Observation Date Value Abnormality Reference (Units ) Status INR in Capillary blood by Coagulation assay 03/30/2024 11:30:24 1.9 (INR) Final Performing Location [facility] [place] [address]
--- OUTSIDE RECORDS SUMMARY | 2024-08-22 16:42 | External Medical Summary | Summary of Care ---
Author Name Unknown Organization [facility] Address [address] [place] [address] Phone [phone] Care Team Providers Care Quality Control Lead Name Role Phone Will Jordan DO Primary Care Provider +1 [phone] Reason for Visit * Reason Comments Dosage Adjustment In Person (Anticoag Cl inic) Encounter Details Date Type Department Care Team (Latest Contact Info) Description 03/30/2024 11:30 AM EST Anticoagulation Pharmacy, [facility] 200 [facility] [place] [address] Pharmacist1, [facility] [place] [address] Pulmonary embolism and infarction (HCC)*; Anticoagulation management encounter Allergies Active Allergy Reactions Criticality Noted Date Comments Oxymetazoline Hcl Edema face/lips/tongue High 2007 Nsaids Edema face/lips/tongue High 02/23/2008 documented as of this encounter (statuses as of 03/30/2024) Medications amLODIPine Besylate 5 MG Oral Tablet [...] as of this encounter (statuses as of 03/30/2024) Active Problems Problem Noted Date Diagnosed Date [...] as of this encounter (statuses as of 03/30/2024) Resolved Problems Problem Noted Date Diagnosed Date [...] as of this encounter (statuses as of 03/30/2024) Immunizations Name Administration Dates Next Due COVID-19 [...] Recorded PHQ Adult Total Score 1 08/06/2021 Utilities Answer Date Recorded Do you have trouble paying y our heating, water, or electric bill? (Adult - for ages 18 years and over) Not on file 10/06/2023 Is your family able to pay t he heat, water, or electric bill? (Household - for ages 0-17 years) Not on file 10/06/2023 Does your family have access to good internet? (Household - for ages 0-17 years) Not on file 10/06/2023 Social Connections Answer Date Recorded How often do you feel lonely or isolated from those around you? (Adult - for ages 18 years and over) Not on file 10/06/2023 Sex and Gender Information Value Date Recorded [...] this encounter Progress Notes * Benjy Fried RP - 03/30/2024 11:27 AM EST Images from the original note were not included. Medication Therapy Disease Management - Anticoagulation Harrison Morton is an 63 year old male who presents to clinic for anticoagulation management. Patient Findings Negatives: Signs/symptoms of thrombosis, Signs/symptoms of bleeding, Change in health, Change in alcohol use, Change in activity, Upcoming invasive procedure, Missed doses, Extra doses, Change in medications, Change in diet/appetite, Bruising INR Result As of 03/30/2024 INR goal: 2.0-3.0 INR used for dosin.9 (03/30/2024) Warfarin Plan As of 03/30/2024 Full warfarin instructions: 7.5 mg every day Next INR check: 05/12/2024 Repeat PT/INR in 6 week(s) Weekly dose: increased I spent a total of 10-19 minutes (exact time 13 mins) on the date of service in preparation, delivery, and documentation of the care provided to Harrison Morton excluding any time spent in the performance of separately billed services or time spent by another provider/QHP. Benjy Larose RPh, [facility] Clinical Pharmacist Medication Therapy Disease Management 03/30/2024, 11:32 AM documented in this encounter Plan of Treatment Upcoming Encounters Date Type Department Care Team (Late st Contact Info) Description 05/12/2024 11:30 AM EST [facility] [employer] 200 [facility] [place] [address] Pharmacist1, [facility] [address] [place] [address] 08/16/2024 4:00 PM EDT Office Visit Family Practice [facility] [place] [address] [place] [address] Will Jordan, [address] [place] [address] Scheduled Procedures Name Priority Associated Diagnoses Date/Ti me COLONOSCOPY FLEXIBLE PROXIMAL DIAGNOSTIC Recall Screen for colon cancer Health Maintenance Due Date Last Done Comments Cologuard 09/04/2007 Fecal Occult Blood Test 09/04/2007 Sigmoidoscopy 09/04/2007 Zoster Vaccines (1 of 2) 2012 Depression [...] on patient's age to complete this topic Pneumococcal Vaccine: Pediatrics (0 to 5 Years) and At-Risk Patients (6 to 64 Years) Aged Out No longer eligible based on patient's age to complete this topic documented as of this encounter Medical Devices Not on filedocumented as of this encounter Procedures Procedure Name Priority Date/Time Associated Diagnosis Comments INR FINGERSTICK, POINT OF CARE STAT 03/30/2024 11:30 AM EST Pulmonary embolism and infarction (HCC) Anticoagulation management encounter documented in this encounter Results * INR FINGERSTICK, POINT OF CARE (03/30/2024 11:30 AM EST) Fingerstick INR 1.9 INR 11:44 AM EST [facility] 56-02 Blood 03/30/2024 11:3 0 AM EST 03/30/2024 11:44 AM EST Narrative [facility] 56-02 - 03/30/2024 11:44 AM EST Therapeutic ranges for non-operative patients: Prophylaxsis/treatment of DVT: (Range:2.0-3.0) Treatment of pulmonary embolism:(Range:2.0-3.0) Prevention of systemic embolism from: -tissue heart valves -acute myocardial infarction -valvular heart disease -atrial fibrillation (Range: 2.0-3.0) Mechanical prosthetic valves: (Range: 2.5-3.5) Benjy Thuan V, [facility] POINT OF CARE TE ST DOCKED DEVICE UNSOLICITED RESULTS Final Result [facility] 56- 200 [place] [address] documented in this encounter Visit Diagnoses Diagnosis Pulmonary embolism and infarction (HCC)- Primary Other pulmonary embolism and infarction Anticoagulation management encounter Encounter for therapeutic drug monitoring documented in this encounter Care Teams Quality Control Lead Relationship Specialty Start Date End Date Will Jordan DO 200 [facility] [place] [address] PCP - General Family Medicine 05/29/14 documented as of this encounter
--- OUTSIDE RECORDS SUMMARY | 2024-08-22 16:42 | External Medical Summary | Summary of Care ---
Author Name Unknown Organization [facility] Address [address] [place] [address] Phone [phone] Care Team Providers Care Manager Transplant Name Role Phone Radha Espinosa DO Primary Care Provider [phone] Reason for Visit * Reason Comments eRx-Medication Refill Encounter Details Date Type Department Care Team (Late st Contact Info) Description 02/29/2024 Refill Family Practice [facility] 200 [facility] [place] [address] Radha Espinosa DO 200 [facility] [place] [address] HTN, goal below 140/90 Allergies Active Allergy Reactions Criticality Noted Date Comments Oxymetazoline Hcl Edema face/lips/tongue High 2007 Nsaids Edema face/lips/tongue High 02/23/2008 documented as of this encounter (statuses as of 03/01/2024) Medications amLODIPine Besylate 5 MG Oral Tablet [...] MOUTH EVERY MORNING 90 Tablet 1 4 Active Lisinopril-hyd roCHLOROthiazi de 20-12.5 MG Oral TabletIndicati ons:HTN, goal below 140/90 TAKE 1 TABLET BY MOUTH EVERY MORNING 90 Tablet 1 4 024 Discontinued documented as of this encounter (statuses as of 03/01/2024) Active Problems Problem Noted Date Diagnosed Date [...] as of this encounter (statuses as of 03/01/2024) Resolved Problems Problem Noted Date Diagnosed Date [...] as of this encounter (statuses as of 03/01/2024) Immunizations Name Administration Dates Next Due COVID-19 [...] Industry Job Start Date Job End Date [place] Not on file Not on file Not on file documented as of this encounter Miscellaneous Notes * Telephone Encounter - Nadir Godwin [facility] - 03/01/2024 2:09 PM ESTSigned Prescriptions: Disp Refills Lisinopril-hydroCHLOROthiazide 20-12.5 MG *90 Tab*1 Sig: TAKE 1 TABLET BY MOUTH EVERY MORNINGAuthorizing Provider: RADHA ESPINOSA User: NADIR GODWIN documented in this encounter Plan of Treatment Upcoming Encounters Date Type Department Care Team (Late st Contact Info) Description 03/30/2024 11:30 AM EST Anticoagulation Pharmacy, [facility] 200 [facility] [place] [address] Pharmacist1, [facility] [address] [facility] [place] [address] 08/16/2024 4:00 PM EDT Office Visit Family Practice [facility] 200 [facility] [place] [address] Radha Espinosa, DO 200 [facility] [place], [place] [address] Scheduled Procedures Name Priority Associated Diagnoses Date/Ti me COLONOSCOPY FLEXIBLE PROXIMAL DIAGNOSTIC Recall Screen for colon cancer Health Maintenance Due Date Last Done Comments Cologuard 09/04/2007 Fecal Occult Blood Test 09/04/2007 Sigmoidoscopy 09/04/2007 Zoster Vaccines (1 of 2) 2012 Depression Screening 08/06/2022 08/06/2021 Lipid Panel 08/04/2023 08/03/2018, 03/08/2008 COVID-19 Vaccine ( season) 2024 01/04/2024, 09/09/2021, 12/17/2020, Additional history exists GFR 07/27/2024 07/28/2023, 0706/2022, 07/29/2021, Additional history exists HbA1c 07/27/2024 07/28/2023 Albumin/Creatinine Ratio 07/27/2026 07/28/2023 DTap/Tdap Vaccines (3 - Td or Tdap) 08/04/2028 08/04/2018, 02/28/2008 Colonoscopy 02/26/2030 02/27/2020, 02/27/2020 Colorectal Cancer Screening [...] hypertension documented in this encounter Care Teams Manager Transplant Relationship Specialty Start Date End Date Radha Espinosa DO [address] [place] [address] PCP - General Family Medicine 05/29/14 documented as of this encounter
--- OUTSIDE RECORDS SUMMARY | 2024-08-22 16:42 | External Medical Summary | Summary of Care ---
Author Name Unknown Organization [facility] Address [address] [place] [address] Phone [phone] Care Team Providers Care Driver Utility Worker Name Role Phone Will Jordan DO Primary Care Provider [phone] Encounter Details Date Type Department Care Team (Late st Contact Info) Description 03/24/2024 Orders Only Family Practice [facility] 200 [facility] [place] [address] Will Jordan DO 200 [facility] [place] [address] Allergies Active Allergy Reactions Criticality Noted Date Comments Oxymetazoline Hcl Edema face/lips/tongue High 2007 Nsaids Edema face/lips/tongue High 02/23/2008 documented as of this encounter (statuses as of 03/24/2024) Medications amLODIPine Besylate 5 MG Oral Tablet [...] as of this encounter (statuses as of 03/24/2024) Active Problems Problem Noted Date Diagnosed Date [...] as of this encounter (statuses as of 03/24/2024) Resolved Problems Problem Noted Date Diagnosed Date [...] as of this encounter (statuses as of 03/24/2024) Immunizations Name Administration Dates Next Due COVID-19 mRNA, LNP-s, No Pre serve, 2-Dose Series (Moderna) 12/17/2020,06/19/2020,05/15/2020 COVID-19, MRNA-LNP, 24-25, P R, 30MCG/0.3ML, IM, 12YRS AND ABOVE ([facility]) 01/04/2024 COVID-19, mRNA, LNP-s, PF, B ooster, [...] on file documented as of this encounter Plan of Treatment Upcoming Encounters Date Type Department Care Team (Late st Contact Info) Description 03/30/2024 11:30 AM EST Anticoagulation Pharmacy, [facility] [address] [place] [address] Pharmacist1, [facility] [address] [facility] [place] [address] 08/16/2024 4:00 PM EDT Office Visit Family Practice [facility] [address] [place] [address] Will Jordan DO [address] [facility] [place] [address] Scheduled Procedures Name Priority Associated Diagnoses Date/Ti me COLONOSCOPY FLEXIBLE PROXIMAL DIAGNOSTIC Recall Screen for colon cancer Health Maintenance Due Date Last Done Comments Cologuard 09/04/2007 Fecal Occult Blood Test 09/04/2007 Sigmoidoscopy 09/04/2007 Zoster Vaccines (1 of 2) 2012 Depression Screening 08/06/2022 08/06/2021 Lipid Panel 08/04/2023 03/23/2024, 07/19, 03/08/2008 COVID-19 Vaccine ( season) 2024 01/04/2024, 09/09/2021, 12/17/2020, Additional history exists GFR 07/27/2024 03/23/2024, 040 12/2023, 10/30/2022, Additional history exists HbA1c 07/27/2024 03/23/2024, 07/28/2023 Albumin/Creatinine Ratio 07/27/2026 07/28/2023 DTap/Tdap [...] Procedure Name Priority Date/Time Associated Diagnosis Comments CHEMISTRY-OUTSIDE Routine 03/23/2024 documented in this encounter Results * (ABNORMAL) CHEMISTRY-OUTSIDE (03/23/2024) Not all results display below - see scan for full detail SCAN INCLUDES: CMP, PSA, LIPID PANEL, HA1C, CBCD OUTSIDE LAB (SEE SCANNED REPORT) CREATININE 0.79 0.6 - 1.4 MG/DL OUTSIDE LAB (SEE SCANNED REPORT) EGFR 101.07 OUTSIDE LA B (SEE SCANNED REPORT) POTASSIUM 4.1 3.5 - 5.1 MMOL/L OUTSIDE LAB (SEE SCANNED REPORT) GLUCOSE 104(A) 70 - 99 MG/DL OUTSIDE LAB (SEE SCANNED REPORT) HOURS FASTING OUTSID E LAB (SEE SCANNED REPORT) TRIGLYCERIDES-OUT SIDE LAB 131 0 - 150 MG/DL OUTSIDE LAB (SEE SCANNED REPORT) CHOLESTEROL-OUTSI DE LAB 201(A) 0 - 200 MG/DL OUTSIDE LAB (SEE SCANNED REPORT) HDL-OUTSIDE LAB 47 40 - 60 MG/DL OUTSIDE LAB (SEE SCANNED REPORT) CHOL/HDL RATIO-OUTSIDE LAB OUTSIDE LA B (SEE SCANNED REPORT) LDL (CALCULATED)-OUTS NATALIA LAB 128 <100 MG/DL OUTSIDE LAB (SEE SCANNED REPORT) LDL (DIRECT MEASURE)-OUTSIDE LAB OUTSIDE LAB (SEE SCANNED REPORT) HEMOGLOBIN, D7Z-CEPBRBF LAB 5.7(A) 4.5 - 5.6 % OUTSIDE LAB (SEE SCANNED REPORT) PHOSPHORUS-OUTSID E LAB OUTSIDE LAB (SEE SCANNED REPORT) PTH-OUTSIDE LAB OUTS NATALIA LAB (SEE SCANNED REPORT) MICROALBUMIN RATIO-OUTSIDE LAB OUTSIDE LA B (SEE SCANNED REPORT) PROTEIN, UA-OUTSIDE LAB OUTSIDE LAB (SEE SCANNED REPORT) HGB 13.4(A) 14.0 - 18.0 G/DL OUTSIDE LAB (SEE SCANNED REPORT) 03/23/2024 us Alexandre Milton MD LABORATORY Final Result OUTSIDE LAB (SEE SCANNED REPORT) documented in this encounter Care Teams Driver Utility Worker Relationship Specialty Start Date End Date Will Jordan DO [address] [place] [address] PCP - General Family Medicine 05/29/14 documented as of this encounter
--- OUTSIDE RECORDS SUMMARY | 2024-08-22 16:42 | External Medical Summary ---
Author Name Unknown Address Unknown Organization K09:[facility] [place] [address] Laboratory Report Ordering Provider Test Date Status CLYDE BURDICK V 05/12/2024 11:33:09 Final Therapeutic ranges for non-o perative patients:
Prophylaxsis/treatment of DVT: (Range:2.0-3.0)
Treatment of pulmonary embolism:(Range:2.0-3.0)
Prevention of systemic embolism from:
-tissue heart valves
-acute myocardial infarction
-valvular heart disease
-atrial fibrillation
(Range: 2.0-3.0)
Mechanical prosthetic valves: (Range: 2.5-3.5) Observation Date Value Abnormality Reference (Units ) Status INR in Capillary blood by Coagulation assay 05/12/2024 11:33:09 1.8 (INR) Final Performing Location [facility] [place] [address]
--- OUTSIDE RECORDS SUMMARY | 2024-08-22 16:42 | External Medical Summary | Summary of Care ---
Author Name Unknown Organization [facility] Address [address] [place] [address] Phone [phone] Care Team Providers Care Technical Internship Name Role Phone Will Jordan DO Primary Care Provider [phone] [phone] Reason for Visit * Reason Comments Dosage Adjustment In Person (Anticoag Cl inic) Encounter Details Date Type Department Care Team (Latest Contact Info) Description 05/12/2024 11:30 AM EST Anticoagulation Pharmacy, [facility] 200 [facility] [place] [address] Pharmacist1, [facility] [address] Pulmonary embolism and infarction (HCC)*; Anticoagulation management encounter Allergies Active Allergy Reactions Criticality Noted Date Comments Oxymetazoline Hcl Edema face/lips/tongue High 2007 Nsaids Edema face/lips/tongue High 02/23/2008 documented as of this encounter (statuses as of 05/12/2024) Medications amLODIPine Besylate 5 MG Oral Tablet [...] as of this encounter (statuses as of 05/12/2024) Active Problems Problem Noted Date Diagnosed Date [...] as of this encounter (statuses as of 05/12/2024) Resolved Problems Problem Noted Date Diagnosed Date [...] as of this encounter (statuses as of 05/12/2024) Immunizations Name Administration Dates Next Due COVID-19 [...] file Not on file Not on file Travel History Travel Start Travel End [place] 04/08/2024 04/18/2024 documented as of this encounter Progress Notes * Benjy Fried RP - 05/12/2024 11:30 AM EST Images from the original note were not included. Medication Therapy Disease Management - Anticoagulation Harrison Morton is an 63 year old male who presents to clinic for anticoagulation management. Patient Findings Positives: Change in alcohol use (He has been drinking less in April. he will resume but at less overall.) Negatives: Signs/symptoms of thrombosis, Signs/symptoms of bleeding, Change in health, Change in activity, Upcoming invasive procedure, Missed doses, Extra doses, Change in medications, Change in diet/appetite, Bruising INR Result As of 05/12/2024 INR goal: 2.0-3.0 INR used for dosin.8 (05/12/2024) Warfarin Plan As of 05/12/2024 Full warfarin instructions: 05/12: 12.5 mg; Otherwise 7.5 mg every day Next INR check: 06/21/2024 Repeat PT/INR in 6 week(s) Weekly dose: not changed I spent a total of 10-19 minutes (exact time 16 mins) on the date of service in preparation, delivery, and documentation of the care provided to Harrison Morton excluding any time spent in the performance of separately billed services or time spent by another provider/QHP. Benjy Larose RPh, [facility] Clinical Pharmacist Medication Therapy Disease Management 05/12/2024, 11:36 AM documented in this encounter Plan of Treatment Upcoming Encounters Date Type Department Care Team (Late st Contact Info) Description 06/21/2024 10:10 AM EST Anticoagulation Pharmacy, [facility] [address] [place] [address] Pharmacist1, [facility] [address] [place] [address] 08/16/2024 4:00 PM EDT Office Visit Family Practice [facility] [address] [place] [address] Will Jordan, DO [address] [place] [address] Scheduled Procedures Name Priority Associated Diagnoses Date/Ti [...] Comments INR FINGERSTICK, POINT OF CARE STAT 05/12/2024 11:33 AM EST Pulmonary embolism and infarction (HCC) Anticoagulation management encounter documented in this encounter Results * INR FINGERSTICK, POINT OF CARE (05/12/2024 11:33 AM EST) Fingerstick INR 1.8 INR 11:40 AM EST [facility] Blood 05/12/2024 11:3 3 AM EST 05/12/2024 11:40 AM EST Narrative [facility] 56- - 05/12/2024 11:40 AM EST Therapeutic ranges for non-operative patients: Prophylaxsis/treatment of DVT: (Range:2.0-3.0) Treatment of pulmonary embolism:(Range:2.0-3.0) Prevention of systemic embolism from: -tissue heart valves -acute myocardial infarction -valvular heart disease -atrial fibrillation (Range: 2.0-3.0) Mechanical prosthetic valves: (Range: 2.5-3.5) Benjy Larose V, [facility] LAB POINT OF CARE TE ST DOCKED DEVICE UNSOLICITED RESULTS Final Result [facility] 200 [place] [address] documented in this encounter Visit Diagnoses Diagnosis Pulmonary embolism and infarction (HCC)- Primary Other pulmonary embolism and infarction Anticoagulation management encounter Encounter for therapeutic drug monitoring documented in this encounter Care Teams Technical Internship Relationship Specialty Start Date End Date Will Jordan DO 200 [facility] [place] [address] PCP - General Family Medicine 05/29/14 documented as of this encounter
--- NOTE | 2024-08-22 18:35 | History & Physical Report ---
Date of Service August 22, 2024 Assessment & Plan (1) Acute pain of left knee: Plan: 63 year old male with PMH HTN, PE, DVT, morbid obesity, prostate cancer presenting to the emergency department with left knee swelling, pain, and difficulty bearing weight. He was transferring from sitting to standing and was immediately unable to bear weight. Swelling to the left knee then occurred. He endorses severe pain to the left knee and feels he is unable to bear weight with assistance of a walker. He has a history of ACL injury to the left knee that occurred 20 years ago without surgical intervention. He denies any falls, recent injuries, fevers, chest pain, difficulty breathing, N/V/D. Acute Pain of Left knee: * Obtain MRI Knee for r/o osteo * Pain management with acetaminophen for mild pain; percocet for moderate pain; dilaudid for severe pain. * Ortho c/s- ordered * NPO at midnight (2) Bilateral pulmonary embolism: Plan: * Anticoagulated with Warfarin; hold for now * INR therapeutic 2.3 * Repeat INR with AM labs (3) Hypertension: Plan: * Uncontrolled hypertension with BP 190's/90-100's * Continue home meds of amlodipine, lisinopril/hctz * Hydralazine as needed for SBP >180; DBP >100. * BP Goal 140/90 (4) Ambulatory dysfunction: Plan: * Fall precautions * PT/OT eval and treatment-ordered Plan DVT Ppx: SCD's Code status: Full PCP: Dr. Jordan Dispo: Admit Patient seen in collaboration with Dr. Jimenez. Please see addendum.I spent a total of 60 minutes coordinating, documenting and providing care for this patient excluding time spent in the performance of separately billed services or time spent by another provider/QHP. History of Present Illness Primary Care Provider: Will Jordan, 63 year old male with PMH HTN, PE, DVT, morbid obesity, prostate cancer presenting to the emergency department with left knee swelling, pain, and difficulty bearing weight. He was transferring from sitting to standing and was immediately unable to bear weight. Swelling to the left knee then occurred. He endorses severe pain to the left knee and feels he is unable to bear weight with assistance of a walker. He has a history of ACL injury to the left knee that occurred 20 years ago without surgical intervention. He follows [facility]. He denies any falls, recent injuries, fevers, chest pain, difficulty breathing, N/V/D. In the emergency department, XRay of the left knee showed OA with joint effusion. Doppler showing 7 cm echogenicity to the left popliteal fossa possibly representing soft tissue mass/malignancy, hematoma, and complex Yeager's cyst; negative for DVT- he is currently anticoagulated for a history of PE. No evidence of leukocytosis with no report of redness or heat to the left knee. The knee was wrapped in an jose bandage. He experienced elevated blood pressures, possibly related to pain; however, he has a history of uncontrolled hypertension with multiple agents- amlodipine, lisinopril/hctz. He was about to be discharged with ortho followup tomorrow, but was not able to bear any weight with use of a walker. Given his anticoagulated state and high fall risk, he is being admitted for observation and ortho consult. Additionally, the patient is currently receiving treatment for prostate cancer with Xtandi. He endorses ~40 lb weight gain since beginning treatment. History obtained from the patient and external chart review. Allergies Allergy/AdvReac Type Severity Reaction Status Date / Time NSAIDS (Non-Steroidal Allergy Unknown SEE NOTES Verified 08/22/24 17:23 Anti-Inflamma BELOW oxymetazoline Allergy edema of Verified 08/22/24 17:25 [From Afrin (oxymetazoline)] face,lips and tongue Home Medications Medication Instructions Recorded Confirmed Type amlodipine 5 mg tablet 5 mg PO QAM 03/09/19 08/22/24 History enzalutamide 40 mg capsule (Xtandi) 160 mg PO DAILY 08/22/24 08/22/24 History lisinopril 20 1 tab PO QAM 08/22/24 08/22/24 History mg-hydrochlorothiazide 25 mg tablet warfarin 5 mg tablet See Rx Instructions .Route .COMPLEX 08/22/24 08/22/24 History Past Med/Surg History Problem List Ambulatory dysfunction (Acute) Acute pain of left knee (Acute) Incontinence DVT (deep venous thrombosis) (Acute) Hypertension (Acute) S/P prostatectomy Dyspnea on exertion Hypoxia (Acute) Bilateral pulmonary embolism (Acute) Admitted to intensive care unit Encounter for pre-operative examination S/P left knee arthroscopy Morbid obesity Prostate cancer (Chronic) Medical History Flat feet, bilateral Prostate cancer Surgical History H/O sinus surgery Family History Grandmother (Maternal) , of breast cancer age 86 No problems noted. Grandfather (Maternal) , in WW11 No problems noted. Grandfather (Paternal) , age 62 of heart attack No problems noted. Grandmother (Paternal) , age 86 with diabetes No problems noted. Father Age: 88 Heart disease heart stents and bypass Mother Age: 85 No problems noted. Sister Age: 69 No problems noted. Son Age: 27 No problems noted. Daughter Age: 21 No problems noted. 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 WEIGHT/BMI reviewed. GEN: Healthy appearing, well-developed, NAD. PSYCH: Good Judgment. AOx3. Normal memory, mood, and affect. HEENT -Head: NC/AT; -Eyes: PERRL, EOMI. No discharge or redn ess; -Ears: External ears are normal. Normal TMs. -Nose: Normal nares. -Mouth and throat: MMM. Normal gums, muc marisel, palate,. Good dentition. NECK: Supple, with no masses. CV: RRR, no m/r/g. LUNGS: CTAB, no w/r/c. ABD: Soft, NT/ND, NBS, no masses or organomegaly. : N/A SKIN: Warm, well perfused. No skin rashes or abnormal lesions. MSK: Non-weight bearing. Left knee grossly swollen and wrapped in JOSE bandage. Moving all extremities. Strength 2/5 to LLE, 5/5 RLE. Sensation to LLE intact EXT: No clubbing, cyanosis, or edema. NEURO: Normal muscle tone. No focal deficits. Results & Data Results & Data Vital Signs (Past 12 Hours) Vital Signs Temp Pulse Pulse Resp BP BP Pulse Ox 08/22/24 18:00 71 16 96 08/22/24 18:00 71 16 169/89 H 96 08/22/24 16:29 72 08/22/24 15:00 73 16 197/101 H 96 08/22/24 12:35 70 08/22/24 12:25 71 13 97 08/22/24 11:30 36.8 C 77 19 194/129 H 97 O2 Del Method 08/22/24 18:00 Room Air 08/22/24 18:00 08/22/24 16:29 08/22/24 15:00 Room Air 08/22/24 12:35 08/22/24 12:25 Room Air 08/22/24 11:30 Room Air Laboratory Results Short CBC 08/22/24 08/22/24 Range/Units 12:18 12:54 WBC Cancelled 8.18 Hgb Cancelled 13.4 L Hct Cancelled 40.2 L Plt Count Cancelled 236 BMP 08/22/24 12:18 Sodium 137 Potassium 4.1 Chloride 106 Carbon Dioxide 25 BUN 16 Creatinine 0.84 Glucose 159 H Calcium 9.3 Liver Function 08/22/24 Range/Units 12:18 Total Bilirubin 0.5 (0.2-1.0) mg/dl AST 20 (13-39) U/L ALT 15 (7-52) U/L Alkaline Phosphatase 83 (34-104) U/L Albumin 4.2 (3.4-5.0) gm/dl Diagnostic Findings Knee X-Ray 08/22/24 12:01 XR knee LT 1 or 2V routine CLINICAL HISTORY: L knee pain COMPARISON: None FINDINGS: There is moderate medial compartment narrowing with osteophytosis. There is a moderate joint effusion. No fracture or dislocation. IMPRESSION: Osteoarthritis with joint effusion. ACT 112: Negative or not required by law. Electronically signed by: Vinicio Brar M.D. 08/22/2024 12:50 PM Venous Doppler Study 08/22/24 12:01 LEFT LOWER EXTREMITY VENOUS DOPPLER HISTORY: L knee/leg pain COMPARISON STUDY: 04/03/2019 FINDINGS: No evidence of DVT seen at the left lower extremity. At the left popliteal fossa there is an oval lobulated mixed echogenicity finding measuring 7 cm in greatest dimension. IMPRESSION: 1. No DVT seen at the left lower extremity. 2. Finding in the left popliteal fossa. Differential diagnosis includes soft tissue mass/malignancy, hematoma, and complex Yeager's cyst. . ACT 112: Positive. There are findings on this exam that require communication between the performing entity and the patient following Patient Test Result Information Act ([place] Act 112) guidelines. Electronically signed by: Vinicio Brar M.D. 08/22/2024 2:02 PM Code Status & VTE Plan Code Status Full code VTE Prophylaxis Plan VTE Prophylaxis will be ordered: Yes Supervising Physician Co-Signing Physician Notes Patient is a 63-year-old male with history of PE, DVT on chronic anticoagulation with Coumadin, prostate cancer, hypertension, CKD stage III, morbid obesity and other medical problems presents with history of significant left knee pain, swelling, difficulty to bear weight and ambulatory dysfunction which started this morning. Patient states having a prior ACL tear of left knee many years ago which was treated conservatively. Patient also states having left knee surgery for arthritis. Currently reports significant left knee pain but denies any trauma, fall, fever, chills, chest pain, dyspnea, nausea, vomiting, abdominal pain. Please review HPI for complete details of presentation. I personally reviewed blood work and imaging studies. INR therapeutic 2.3, glucose elevated 159. Left knee x-ray showed osteoarthritis with joint effusion. Doppler study showed no DVT but noted left popliteal fossa concerning for possible soft tissue mass/hematoma/complex Yeager's cyst. Normal uric acid levels Physical Exam: Vitals signs as noted above General Appearance: Morbidly obese, no apparent distress Head: normocephalic, Atraumatic Eyes: normal inspection, EOMI Neck: supple, Trachea midline Respiratory/Chest: Normal breath sounds, CTA, No accessory muscle use Cardiovascular: S1, S2, No murmur Abdomen/GI:Soft, Non tender, Bowel sounds present Extremities/Musculoskeletal:normal inspection, no edema, Left Knee tender, swelling, decreased ROM Neurologic/Psych:AAOX3, grossly no focal neurological deficits, unable to assess gait Skin: normal color, warm Left knee pain/popliteal fossa concerning for mass/hematoma/complex Yeager's cyst Osteoarthritis with joint effusion Ambulatory dysfunction secondary to above Hold Coumadin today Consider to reverse INR based on knee MRI results Will obtain knee MRI Orthopedics consulted Pain control PT OT, fall precautions Further management based on MRI results Check ESR, CRP Hypertensive urgency H/O HTN Resume home antihypertensives IV hydralazine as needed Monitor BP and adjust medications as needed Morbid obesity Need lifestyle changes Other chronic conditions PE, DVT, prostate cancer Resume anticoagulation as soon as possible I personally interviewed and examined the patient at bedside. I have reviewed the advanced practitioner's documentation on the date of service referred in note and agree with plan. Patient's care is coordinated with Alanis DUQUE. Please refer to the documentation above for details of patient's presentation and for discussion of other issues. I spent a total of 32minutes coordinating, documenting, and providing care for this patient excluding time spent in the performance of separately billed services or time spent by another provider/QHP.
[2024-08-22] MEDS: MoRPHine SULFATE 2 MG/ML CARP IV STA (19:21)
[2024-08-22] MEDS: GADOBUTROL 65ML VIAL IV ONE (20:40)
[2024-08-22] MEDS ORDERED: MAGNESIUM HYDROXIDE SUSP 30 ML UDC PO PRN (21:22)
[2024-08-22] MEDS ORDERED: POLYETHYLENE (MIRALAX) 17 GM PACK PO PRN (21:22)
[2024-08-22] MEDS ORDERED: ACETAMINOPHEN 325 MG TAB PO PRN (21:22)
[2024-08-22] MEDS ORDERED: ALUMINUM/MAGNESIUM SUSP 30 ML UDC PO PRN (21:22)
[2024-08-22] MEDS ORDERED: ONDANSETRON INJ 2 MG/ML 2 ML VIAL IV PRN (21:22)
[2024-08-22] MEDS: oxyCODONE/ACETAMINOPHEN 5mg/325mg TAB PO PRN (21:40)
[2024-08-22] MEDS: LISINOPRIL/HCTZ 20/25MG 1 TAB PO SCH (22:09)
[2024-08-22] MEDS: amLODIPine BESYLATE 5 MG TAB PO SCH (22:09)
--- NOTE | 2024-08-22 23:26 | Magnetic Resonance Report ---
Exam(s): MRI EXTREMITY W/WO Contrast IV Amt: 15mL Gadavist given existing IV EXAM: MR Left Lower Extremity Without and With Intravenous Contrast, Knee CLINICAL HISTORY: Reason for exam: r/o osteomyelitis. TECHNIQUE: Multiplanar magnetic resonance images of the left knee without and with intravenous contrast. CONTRAST: Patient received 15mL Gadavist given existing IV of IV contrast COMPARISON: No relevant prior studies available. FINDINGS: Bones/cartilage: Red marrow conversion within the distal femoral metaphysis. No fracture or evidence of acute osteomyelitis. Broad areas of full-thickness cartilage loss in the medial compartment. Full- thickness cartilaginous defect along the weightbearing lateral femoral condyle. Partial-thickness cartilage loss in the patellofemoral compartment. Large joint effusion. Extensor mechanism: Unremarkable. Medial meniscus: Complex tearing. Lateral meniscus: Unremarkable. No tear. Medial capsule/supporting structures: Unremarkable. Normal medial collateral ligament. Lateral capsule/supporting structures: Unremarkable. Normal lateral collateral ligament. Anterior cruciate ligament: Full-thickness tear. Posterior cruciate ligament: Unremarkable. Musculature: Unremarkable. Soft tissues: Yeager's cyst in the popliteal fossa. IMPRESSION: 1. ACL tear. No evidence of acute osteomyelitis. 2. Complex tearing of the medial meniscus. 3. Tricompartmental cartilage loss most pronounced in the medial compartment where it is severe. 4. Large joint effusion and Yeager's cyst Electronically signed by: Caden Richards MD 08/22/24 23:25 PM
[2024-08-23] MEDS: MoRPHine SULFATE 2 MG/ML CARP IV PRN (01:06)
[2024-08-23] MEDS: hydrALAZINE HCL 20 MG/ML VIAL IV PRN (03:33)
[2024-08-23 06:39] LABS: Hematocrit (blood only) 38.8 % (42.0-52.0); Hemoglobin 13.5 g/dl (14.0-18.0); Mean Corpuscular Hemoglobin 31.5 pg (25.0-34.0); Mean Corpuscular Hgb Conc 34.8 g/dL (32.0-36.0); Mean Corpuscular Volume 90.7 fL (80.0-100.0); Mean Platelet Volume 9.2 fL (9.4-12.4); Platelet Count 238 K/uL (130-400); RDW Coefficient of Variation 13.7 % (11.5-14.5); RDW Standard Deviation 45.9 fL (36.4-46.3); Red Blood Count 4.28 M/uL (4.70-6.10); White Blood Count 7.76 K/ul (4.8-10.8)
[2024-08-23 07:03] LABS: BUN Creatinine Ratio 19.7 (10-20); C Reactive Protein 0.96 mg/dl (0-0.5); Calcium 8.9 mg/dl (8.6-10.3); Creatinine Clr Calc Pharmacy 205.3 ml/min; Potassium 3.4 mmol/L (3.5-5.1)
[2024-08-23 07:04] LABS: INR 1.9 (0.9-1.1); Prothrombin Time 19.8 Seconds (9.0-12.0)
[2024-08-23] MEDS: POTASSIUM CHLORIDE CRTAB 20 MEQ TABCR PO STA (08:44)
--- NOTE | 2024-08-23 11:56 | Orthopedic Consultation ---
Date of Consultation August 23, 2024 Assessment & Plan (1) Acute pain of left knee: Patient with acute onset of atraumatic left knee pain and swelling. Does have a history of underlying knee pain but has not sought any intervention for that recently. History of ACL injury and arthroscopic surgery with [facility] 22 and 11 years ago respectively. Lab work shows no leukocytosis. ESR normal at 14. CRP minimally elevated at 0.96. Lyme screen is negative. INR 2.3. Imaging reviewed as above. Case and images were reviewed with Dr. Herrera. Etiology of pain could be secondary to hemarthrosis, possible meniscus injury, possible arthritis flare. Options of care were reviewed with the patient. Given his inability to bear weight secondary to knee pain, aspiration was offered and patient was agreeable. He has not had any recent injections, no history of diabetes, and is not immunocompromised, so a corticosteroid injection was also offered. He was also agreeable with this. Knee aspiration/injection procedure Risks and benefits of procedure were discussed, patient gave verbal consent to proceed. Patient confirmed left knee to be aspirated and injected. He was placed in supine position with the left knee bumped for comfort. Aspiration site was marked with the cap of a needle and the skin was prepped with Betadine and allowed to dry. An 18-gauge needle was inserted in a superior lateral approach however no fluid was aspirated. The needle was removed, a Band-Aid was applied. Dr. Herrera then reprepped the skin with Betadine which was allowed it to dry. A new 18-gauge needle was inserted just distal to the first aspiration site, and 120 mL of blood was aspirated. A combination of 5 mL of 0.5% ropivacaine and 1 mL 40 mg/mL Depo-Medrol was then injected and free-flowing into the joint space. Needle was withdrawn and a Band-Aid was applied. Magen wrap was applied to the knee with gentle compression. Patient tolerated procedure well. Aspirated fluid will be sent for Gram stain, culture, cell count, crystal evaluation. Hemarthrosis could be spontaneous given warfarin usage, versus meniscal injury related. Patient should continue elevating and icing the knee. Can be weightbearing as tolerated with a walker for stability. Patient management per primary service. Will follow aspirate analysis. PT/OT As long as no concerning abnormalities on the aspirate analysis, and improvement in pain, this can be managed on an outpatient basis whether he decides to follow-up with [facility] or our office. Supervising Physician Co-Signing Physician Notes I saw and examined the patient, reviewed his imaging studies and chart, formulated the plan, performed the aspiration, and performed the substantive portion of the visit. Agree with above note. History of Present Illness Attending Physician: Keara Dao MD History of Present Illness Harrison Morton is a 63-year-old male with a history of hypertension, pulmonary embolism on Coumadin, obesity, prostate cancer, who was evaluated in the emergency department yesterday for acute left knee pain and swelling. Patient has had ongoing discomfort in the left knee however he stood up yesterday from a seated position and noticed an increase in pain. He developed inability to bear weight due to the amount of pain he was experiencing in the knee and ended up coming to the emergency department. He did not fall. After being worked up in the emergency department with a left knee x-ray, left lower extremity ultrasound, blood work, patient was subsequently admitted for ambulatory dysfunction secondary to left knee pain and a fall risk. Patient states that his pain is little bit better now but only because he is taking pain medication. He is still having a lot of pain when he tries to bend the knee and he endorses significant swelling to the knee. Patient endorses a history of a left ACL injury 22 years ago. He was evaluated by [facility] at that time and injury was nonoperable. He subsequently had an arthroscopic knee surgery 11 years ago to "clean out the arthritis." This surgery did help for some time. He states he was told that he probably has some meniscus damage as well given his arthritis and ongoing knee pain recently but has not pursued any intervention for about the past 5 years. He has not had any recent injections in the knee. Takes Coumadin for DVT/PE prophylaxis and INR was 2.3 upon admission. He denies any fevers or chills, numbness or tingling below his knee. No history of diabetes. History of prostate cancer which did metastasized in the past. Received radiation. History of prostatectomy and partial bladder resection. He is only on testosterone suppression therapy now. He is not immunocompromised. Allergies Allergy/AdvReac Type Severity Reaction Status Date / Time NSAIDS (Non-Steroidal Allergy Unknown SEE NOTES Verified 08/22/24 17:23 Anti-Inflamma BELOW oxymetazoline Allergy edema of Verified 08/22/24 17:25 [From Afrin (oxymetazoline)] face,lips and tongue Home Medications Medication Instructions Recorded Confirmed Type amlodipine 5 mg tablet 5 mg PO QAM 03/09/19 08/22/24 History enzalutamide 40 mg capsule (Xtandi) 160 mg PO DAILY 08/22/24 08/22/24 History lisinopril 20 1 tab PO QAM 08/22/24 08/22/24 History mg-hydrochlorothiazide 25 mg tablet warfarin 5 mg tablet See Rx Instructions .Route .COMPLEX 08/22/24 08/22/24 History oxycodone-acetaminophen 5 mg-325 1 tab PO Q6H PRN pain 5 days #10 08/24/24 Rx mg tablet (Percocet) tabs Patient History Medical History (Updated 08/24/24 @ 11:01 by Angie Benito PA-C) Flat feet, bilateral Prostate cancer Surgical History H/O sinus surgery Family History Grandmother (Maternal) , of breast cancer age 86 No problems noted. Grandfather (Maternal) , in WW11 No problems noted. Grandfather (Paternal) , age 62 of heart attack No problems noted. Grandmother (Paternal) , age 86 with diabetes No problems noted. Father Age: 88 Heart disease heart stents and bypass Mother Age: 85 No problems noted. Sister Age: 69 No problems noted. Son Age: 27 No problems noted. Daughter Age: 21 No problems noted. 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 In no acute distress. Appears to be in some pain secondary to the left knee when changing positions. Cardiovascular: Left DP pulse 2+ Musculoskeletal: Left lower extremity: There is a large knee effusion. Knee with no redness or erythema. It is warm to touch. Range of motion is 5 to 45 degrees. Unable to perform straight leg raise secondary to pain. There is diffuse knee tenderness to palpation. Strength 5/5 with bilateral ankle plantarflexion, dorsiflexion, eversion. Neurologic: No sensory deficits in bilateral lower extremities L3-S1 distribution Results & Data Vital Signs (Past 12 Hours) Vital Signs Temp Pulse Pulse Pulse Resp BP Pulse Ox 08/23/24 11:39 98.1 F 70 16 173/93 H 95 08/23/24 07:40 97.9 F 62 16 165/81 H 95 08/23/24 07:17 69 08/23/24 04:15 78 167/82 H 08/23/24 03:28 98.2 F 71 16 184/85 H 97 O2 Del Method 08/23/24 11:39 Room Air 08/23/24 07:40 Room Air 08/23/24 07:17 08/23/24 04:15 08/23/24 03:28 Room Air Laboratory Results 08/23/24 08/22/24 08/22/24 06:13 12:54 12:18 WBC 7.76 8.18 Cancelled RBC 4.28 L 4.37 L Cancelled Hgb 13.5 L 13.4 L Cancelled Hct 38.8 L 40.2 L Cancelled MCV 90.7 92.0 Cancelled MCH 31.5 30.7 Cancelled MCHC 34.8 33.3 Cancelled RDW Std Deviation 45.9 47.8 H Cancelled RDW Coeff of Jimmy 13.7 14.1 Cancelled Plt Count 238 236 Cancelled MPV 9.2 L 9.0 L Cancelled Immature Gran % (Auto) 0.5 Cancelled Neut % (Auto) 82.6 Cancelled Lymph % (Auto) 7.3 Cancelled [place] % (Auto) 8.3 Cancelled Eos % (Auto) 0.6 Cancelled Baso % (Auto) 0.7 Cancelled Neut # (Auto) 6.75 H Cancelled Lymph # (Auto) 0.60 L Cancelled [place] # (Auto) 0.68 H Cancelled Eos # (Auto) 0.05 Cancelled Baso # (Auto) 0.06 Cancelled Immature Gran # (Auto) 0.04 Cancelled Absolute Nucleated RBC Cancelled Nucleated RBC % (auto) Cancelled Neutrophils % (Manual) Cancelled Band Neutrophils % Cancelled Lymphocytes % (Manual) Cancelled Prolymphocyte % Cancelled Reactive Lymphs % (Man) Cancelled Monocytes % (Manual) Cancelled Eosinophils % (Manual) Cancelled Basophils % (Manual) Cancelled Metamyelocytes % (Man) Cancelled Myelocytes % (Man) Cancelled Promyelocytes % (Man) Cancelled Blast Cells % (Manual) Cancelled Plasma Cell % (Manual) Cancelled Other Cells % Cancelled Nucleated RBC % Cancelled Neutrophils # (Manual) Cancelled Band Neutrophils # Cancelled Total Absolute Neuts Cancelled Lymphocytes # (Manual) Cancelled Prolymphocyte # Cancelled Reactive Lymphs # Cancelled Total Abs Lymphocytes Cancelled Monocytes # (Manual) Cancelled Eosinophils # (Manual) Cancelled Basophils # (Manual) Cancelled Metamyelocytes # (Man) Cancelled Myelocytes # (Manual) Cancelled Promyelocytes # (Man) Cancelled Blast Cells # (Man) Cancelled Plasma Cell # (Manual) Cancelled Other Cells # Cancelled Nucleated RBCs # (Man) Cancelled Hypersegmented Neuts Cancelled Hyposegmented Neuts Cancelled Hypogranular Neuts Cancelled Large Granular Lymphs Cancelled # Lrg Granular Lymphs Cancelled Hairy Cells Cancelled Smudge Cells Cancelled Toxic Granulation Cancelled Toxic Vacuolation Cancelled Dohle Bodies Cancelled Keyona Rods Cancelled Platelet Estimate Cancelled Hypogranular Platelets Cancelled Giant Platelets Cancelled Platelet Satelliting Cancelled RBC Morphology Cancelled Polychromasia Cancelled Hypochromasia Cancelled Poikilocytosis Cancelled Basophilic Stippling Cancelled Anisocytosis Cancelled Microcytosis Cancelled Macrocytosis Cancelled Spherocytes Cancelled Pappenheimer Bodies Cancelled Sickle Cells Cancelled Target Cells Cancelled Tear Drop Cells Cancelled Ovalocytes Cancelled Stomatocytes Cancelled Anton-Verdon Bodies Cancelled Echinocytes Cancelled Acanthocytes (Spur) Cancelled Rouleaux Cancelled RBC Agglutinates Cancelled Schistocytes Cancelled ESR 14 Sezary Cell Cancelled PT 19.8 H 23.3 H INR 1.9 H 2.3 H APTT 23 PTT Ratio 0.9 Sodium 136 137 Potassium 3.4 L 4.1 Chloride 103 106 Carbon Dioxide 28 25 Anion Gap 5 6 BUN 12 16 Creatinine 0.61 0.84 Est Cr Clr Drug Dosing 205.3 Not Reportable eGFR 109.28 99.21 BUN/Creatinine Ratio 19.7 19.0 Glucose 117 H 159 H Uric Acid 5.5 Calcium 8.9 9.3 Total Bilirubin 0.5 AST 20 ALT 15 Alkaline Phosphatase 83 C-Reactive Protein 0.96 H Total Protein 6.7 Albumin 4.2 Globulin 2.5 Albumin/Globulin Ratio 1.7 Lyme Disease Screen Negative Blood Parasites ID Cancelled Diagnostic Findings Knee X-Ray 08/22/24 12:01 XR knee LT 1 or 2V routine CLINICAL HISTORY: L knee pain COMPARISON: None FINDINGS: There is moderate medial compartment narrowing with osteophytosis. There is a moderate joint effusion. No fracture or dislocation. IMPRESSION: Osteoarthritis with joint effusion. ACT 112: Negative or not required by law. Electronically signed by: Vinicio Brar M.D. 08/22/2024 12:50 PM Venous Doppler Study 08/22/24 12:01 LEFT LOWER EXTREMITY VENOUS DOPPLER HISTORY: L knee/leg pain COMPARISON STUDY: 04/03/2019 FINDINGS: No evidence of DVT seen at the left lower extremity. At the left popliteal fossa there is an oval lobulated mixed echogenicity finding measuring 7 cm in greatest dimension. IMPRESSION: 1. No DVT seen at the left lower extremity. 2. Finding in the left popliteal fossa. Differential diagnosis includes soft tissue mass/malignancy, hematoma, and complex Yeager's cyst. . ACT 112: Positive. There are findings on this exam that require communication between the performing entity and the patient following Patient Test Result Information Act ([place] Act 112) guidelines. Electronically signed by: Vinicio Brar M.D. 08/22/2024 2:02 PM Lower Extremity MRI 08/22/24 17:42 Exam(s): MRI EXTREMITY W/WO Contrast IV Amt: 15mL Gadavist given existing IV EXAM: MR Left Lower Extremity Without and With Intravenous Contrast, Knee CLINICAL HISTORY: Reason for exam: r/o osteomyelitis. TECHNIQUE: Multiplanar magnetic resonance images of the left knee without and with intravenous contrast. CONTRAST: Patient received 15mL Gadavist given existing IV of IV contrast COMPARISON: No relevant prior studies available. FINDINGS: Bones/cartilage: Red marrow conversion within the distal femoral metaphysis. No fracture or evidence of acute osteomyelitis. Broad areas of full-thickness cartilage loss in the medial compartment. Full- thickness cartilaginous defect along the weightbearing lateral femoral condyle. Partial-thickness cartilage loss in the patellofemoral compartment. Large joint effusion. Extensor mechanism: Unremarkable. Medial meniscus: Complex tearing. Lateral meniscus: Unremarkable. No tear. Medial capsule/supporting structures: Unremarkable. Normal medial collateral ligament. Lateral capsule/supporting structures: Unremarkable. Normal lateral collateral ligament. Anterior cruciate ligament: Full-thickness tear. Posterior cruciate ligament: Unremarkable. Musculature: Unremarkable. Soft tissues: Yeager's cyst in the popliteal fossa. IMPRESSION: 1. ACL tear. No evidence of acute osteomyelitis. 2. Complex tearing of the medial meniscus. 3. Tricompartmental cartilage loss most pronounced in the medial compartment where it is severe. 4. Large joint effusion and Yeager's cyst Electronically signed by: Caden Richards MD 08/22/24 23:25 PM
[2024-08-23] MEDS: methylPREDNISolone acetate 40 MG/ML VIAL IA ONE (13:36)
[2024-08-23] MEDS: ROPIVACAINE 0.5% 5 MG/ML 30 ML VIAL INFIL ONE (13:37)
[2024-08-23 14:26] LABS: Appearance Synovial Fluid Bloody; Color Synovial Fluid Red; Mononuclear WBC Synovial 37.2 %; Polynuclear WBC Synovial 62.8 %; RBC Synovial Fluid Auto 2121000 /uL; Source Synovial Fluid Left Knee; WBC Synovial Fluid Auto 2709 /ul (0-200)
--- NOTE | 2024-08-23 16:33 | Hospitalist Progress Note ---
Date of Service August 23, 2024 Assessment & Plan (1) Acute pain of left knee: Plan: 63 year old male with PMH HTN, PE, DVT, morbid obesity, prostate cancer presenting to the emergency department with left knee swelling, pain, and difficulty bearing weight. He was transferring from sitting to standing and was immediately unable to bear weight. Swelling to the left knee then occurred. He endorses severe pain to the left knee and feels he is unable to bear weight with assistance of a walker. He has a history of ACL injury to the left knee that occurred 20 years ago without surgical intervention. He denies any falls, recent injuries, fevers, chest pain, difficulty breathing, N/V/D. Acute Pain of Left knee: MRI Knee -no osteomyelitis, medial meniscus complex tear, large joint effusion Pain management Ortho consult, appreciate recs (2) Bilateral pulmonary embolism: Plan: Anticoagulated with Warfarin; on hold for ortho procedures- confirm with ortho when to resume Resume as able (3) Hypertension: Plan: Uncontrolled hypertension with BP 190's/90-100's Continue home meds of amlodipine, lisinopril/hctz Hydralazine as needed for SBP >180; DBP >100. Goal 140/90 (4) Ambulatory dysfunction: Plan: Fall precautions PT/OT eval and treatment-ordered Plan DVT Ppx: SCD's, warfarin currently on hold Code status: Full PCP: Dr. Jordan Admission and Anticipated Discharge Date Admission Date: August 22, 2024 Subjective Pt was seen laying in bed after knee aspirate Review of Systems Review of Systems: All systems reviewed & are unremarkable except as noted in Subjective Physical Exam Physical Exam: General: Alert, oriented. No acute distress HEENT: NC/AT CV: RRR Resp: Breath sounds clear bilaterally, no increased effort of breathing Abdomen:Soft, nontender Extremities: L knee tender, swollen Results & Data Results & Data Vital Signs (Past 12 Hours) Vital Signs Temp Pulse Pulse Resp BP Pulse Ox O2 Del Method 08/23/24 16:15 36.8 C 74 16 185/101 H 92 Room Air 08/23/24 14:00 72 08/23/24 11:39 36.7 C 70 16 173/93 H 95 Room Air 08/23/24 07:40 36.6 C 62 16 165/81 H 95 Room Air 08/23/24 07:17 69
[2024-08-23] MEDS: ENZALUTAMIDE PO SCH (18:06)
[2024-08-23 20:06] VITALS: TEMP 97.9
[2024-08-24 06:42] LABS: Basophils # (auto) 0.05 K/uL (0.00-0.20); Basophils % (auto) 0.7 %; Eosinophils # (auto) 0.05 K/uL (0.00-0.50); Eosinophils % (auto) 0.7 %; Hemoglobin 13.6 g/dl (14.0-18.0); Immature Granulocytes # (auto) 0.03 K/uL (0.01-0.20); Immature Granulocytes % (auto) 0.4 %; Lymphocytes # (auto) 1.01 K/uL (1.20-3.40); Lymphocytes % (auto) 14.4 %; Mean Corpuscular Hemoglobin 30.6 pg (25.0-34.0); Mean Corpuscular Volume 90.1 fL (80.0-100.0); Monocytes # (auto) 0.96 K/uL (0.11-0.59); Monocytes % (auto) 13.7 %; Neutrophils # (auto) 4.92 K/uL (1.40-6.50); Neutrophils % (auto) 70.1 %; Platelet Count 248 K/uL (130-400); RDW Coefficient of Variation 13.5 % (11.5-14.5); RDW Standard Deviation 45.1 fL (36.4-46.3); Red Blood Count 4.44 M/uL (4.70-6.10); White Blood Count 7.02 K/ul (4.8-10.8)
[2024-08-24 07:06] LABS: INR 1.3 (0.9-1.1); Prothrombin Time 13.4 Seconds (9.0-12.0)
[2024-08-24 07:12] LABS: Calcium 9.1 mg/dl (8.6-10.3); Creatinine Clr Calc Pharmacy 156.8 ml/min; Potassium 3.8 mmol/L (3.5-5.1)
[2024-08-24 07:45] VITALS: BP 149/91; RESP 18; O2SAT 95
--- NOTE | 2024-08-24 11:01 | Orthopedic Progress Note ---
Date of Service August 24, 2024 Assessment & Plan (1) Hemarthrosis, left knee: Plan: Left knee hemarthrosis status post aspiration And cortisone injection on 08/23/2024. Patient may be out of bed, weight-bear as tolerated on left knee. Magen bandage around left knee for compression for comfort at this point. Ice to left knee as needed for pain or swelling. May resume or advance activities as tolerated. Cultures currently pending. Although with his improvement doubtful that there is an underlying infection. Will continue to follow cultures. Would recommend follow-up with [facility] or [facility] in approximately 2 to 3 weeks for reassessment. Will leave it up to the patient. Appointment for our office is scheduled if he wants to keep that appointment. Will discuss findings with Dr. Herrera. Admission and Anticipated Discharge Date Admission Date: August 22, 2024 Subjective Patient sitting up in bed. Doing well. States that his knee feels 100% better. Has been able to ambulate through the night in his room. He states he has been able to move the knee. He denies any pain in the knee today. He does does still have the Magen bandage in place. He feels that he is good enough to go home. Results & Data Vital Signs (Past 12 Hours) Vital Signs Temp Pulse Pulse Resp BP Pulse Ox O2 Del Method 08/24/24 09:07 68 08/24/24 07:45 36.6 C 67 18 149/91 H 95 Room Air 08/24/24 03:20 36.6 C 73 12 148/83 H 97 Room Air 08/23/24 23:20 36.6 C 76 12 149/81 H 96 Room Air Laboratory Results 08/23/24 Unknown Gram Stain - Final Knee,Left Aerobic and Anaerobic Culture - Pending 08/24/24 08/23/24 06:20 Unknown WBC 7.02 RBC 4.44 L Hgb 13.6 L Hct 40.0 L MCV 90.1 MCH 30.6 MCHC 34.0 RDW Std Deviation 45.1 RDW Coeff of Jimmy 13.5 Plt Count 248 MPV 9.0 L Immature Gran % (Auto) 0.4 Neut % (Auto) 70.1 Lymph % (Auto) 14.4 [place] % (Auto) 13.7 Eos % (Auto) 0.7 Baso % (Auto) 0.7 Neut # (Auto) 4.92 Lymph # (Auto) 1.01 L Greene # (Auto) 0.96 H Eos # (Auto) 0.05 Baso # (Auto) 0.05 Immature Gran # (Auto) 0.03 PT 13.4 H INR 1.3 H Sodium 138 Potassium 3.8 Chloride 103 Carbon Dioxide 29 Anion Gap 6 BUN 15 Creatinine 0.79 Est Cr Clr Drug Dosing 156.8 eGFR 101.07 BUN/Creatinine Ratio 19.0 Glucose 107 H Calcium 9.1 Fluid Comment Synovial Source Left Knee Synovial Color Red Synovial Appearance Bloody Synovial WBC (Auto) 2709 H Synovial RBC (Auto) [id number] Synovial Polynuclear % 62.8 Synovial Mononuclear % 37.2 Synovial Crystals
--- NOTE | 2024-08-24 12:30 | Discharge Summary ---
Discharge Summary Date of Service August 24, 2024 Principal Dx & Hospital Course #1 = Principal Diagnosis (1) Acute pain of left knee: 63 year old male with PMH HTN, PE, DVT, morbid obesity, prostate cancer presenting to the emergency department with left knee swelling, pain, and difficulty bearing weight. He was transferring from sitting to standing and was immediately unable to bear weight. Swelling to the left knee then occurred. He endorses severe pain to the left knee and feels he is unable to bear weight with assistance of a walker. He has a history of ACL injury to the left knee that occurred 20 years ago without surgical intervention. He denies any falls, recent injuries, fevers, chest pain, difficulty breathing, N/V/D. Acute Pain of Left knee: MRI Knee -no osteomyelitis, medial meniscus complex tear, large joint effusion Pain management Ortho consult, appreciate recs (2) Bilateral pulmonary embolism: Anticoagulated with Warfarin; on hold for ortho procedures- confirm with ortho when to resume Resume as able (3) Hypertension: Uncontrolled hypertension with BP 190's/90-100's Continue home meds of amlodipine, lisinopril/hctz Hydralazine as needed for SBP >180; DBP >100. Goal 140/90 (4) Ambulatory dysfunction: Fall precautions PT/OT eval and treatment-ordered Plan DVT Ppx: SCD's, warfarin currently on hold Code status: Full PCP: Dr. Jordan Notes For Next Care Provider 63 year old male with PMH HTN, PE, DVT, morbid obesity, prostate cancer presenting to the emergency department with left knee swelling, pain, and difficulty bearing weight. On medicine, ortho consulted, drained left knee and placed steroid injection with improvement in pain. PT/OT also assisted with pain. On 08/24/2024 patient medically stable for discharge home. Medication Changes From Visit -see below Admission HPI Per Admitting Provider 63 year old male with PMH HTN, PE, DVT, morbid obesity, prostate cancer presenting to the emergency department with left knee swelling, pain, and difficulty bearing weight. He was transferring from sitting to standing and was immediately unable to bear weight. Swelling to the left knee then occurred. He endorses severe pain to the left knee and feels he is unable to bear weight with assistance of a walker. He has a history of ACL injury to the left knee that occurred 20 years ago without surgical intervention. He follows [facility]. He denies any falls, recent injuries, fevers, chest pain, difficulty breathing, N/V/D. In the emergency department, XRay of the left knee showed OA with joint effus ion. Doppler showing 7 cm echogenicity to the left popliteal fossa possibly representing soft tissue mass/malignancy, hematoma, and complex Yeager's cyst; negative for DVT- he is currently anticoagulated for a history of PE. No evidence of leukocytosis with no report of redness or heat to the left knee. The knee was wrapped in an mady bandage. He experienced elevated blood pressures, possibly related to pain; however, he has a history of uncontrolled hypertension with multiple agents- amlodipine, lisinopril/hctz. He was about to be discharged with ortho followup tomorrow, but was not able to bear any weight with use of a walker. Given his anticoagulated state and high fall risk, he is being admitted for observation and ortho consult. Additionally, the patient is currently receiving treatment for prostate cancer with Xtandi. He endorses ~40 lb weight gain since beginning treatment. History obtained from the patient and external chart review. Discharge Exam Gen: A&O 3 NAD HEENT: NCAT, EOMI, not icteric. External ears normal. No rhinorrhea. Moist mucous membranes. Neck: Supple, full range of motion, no observable masses, No meningeal sign. Lungs: No Respiratory distress. CV: RRR, no edema. Abdomen: Soft, nondistended, No rebound tenderness. MSK: left knee elevated in bed Skin: No rashes, petechiae, lesions. Normal color per patient. Neuro: Normal Gait, Grossly intact. Psych: Appropriate for situation. Updated Medication List Medication Instructions Recorded Confirmed Type amlodipine 5 mg tablet 5 mg PO QAM 03/09/19 08/22/24 History enzalutamide 40 mg capsule (Xtandi) 160 mg PO DAILY 08/22/24 08/22/24 History lisinopril 20 1 tab PO QAM 08/22/24 08/22/24 History mg-hydrochlorothiazide 25 mg tablet warfarin 5 mg tablet See Rx Instructions .Route .COMPLEX 08/22/24 08/22/24 History oxycodone-acetaminophen 5 mg-325 1 tab PO Q6H PRN pain 5 days #10 08/24/24 Rx mg tablet (Percocet) tabs Hospital Stay Data Consultations 08/22/24 16:50 ED Decision to Admit Stat 08/22/24 17:50 Consult Orthopedic Surgery Routine Diagnostic Imagining Performed 08/22/24 12:01 US venous doppler LE LT Stat 08/22/24 17:42 MRI Leg [MR lower leg LT wo/w con] Urgent Pending Results Patient Have Any Pending Studies at Discharge: No Discharge Instructions Given to Patient (Per Discharging Provider) 1. Please take medications as prescribed. 2. Restart warfarin on 08/25/2024. Total Time Total Time Spent Total Time Spent (In Minutes): I spent a total of 35 minutes in direct patient care, including [id number] time with the patient and/or family, reviewing medical records, ordering and reviewing diagnostic tests, and coordinating care with other healthcare providers. This time includes: history taking, physical examination, medical decision making, counseling, ECG interpretation, imaging interpretation, lab interpretation, orders, and education, excluding time spent in the performance of separately billed services.
[2024-08-24 12:51] VITALS: PULSE 78
== END 2024-08-24 13:00 | disposition home or self-care (01) | DRG 554 ==
LOC: ED 11:26 → 2N 17:49 → SUATTDRO 17:49 → 2N 20:58